=== PATIENT | male | born 1970 | race Caucasian/White ===

== ENCOUNTER 2022-07-12 14:31 | Inpatient (IN) | payer OTHER ==
[2022-07-12] MEDS ORDERED: MIDAZOLAM 1 MG/ML 5 ML VIAL IV STA (14:46)
[2022-07-12] MEDS ORDERED: DEXTROSE 5% IN WATER 100 ML with AMIODARONE 150 MG IV ONE ×4 (14:52)
[2022-07-12] MEDS ORDERED: AMIODARONE 360 MG in DEXTROSE 5% IN WATER 200 ML IV ONE ×2 (14:53)
--- NOTE | 2022-07-12 15:06 | ED ---
General Adult HPI - General Chief complaint: Arrhythmia/Palpitations Stated complaint: SALAZAR Source: patient, EMS, RN notes reviewed Mode of arrival: EMS Limitations: no limitations - History of Present Illness Initial comments: Patient is a pleasant 52-year-old male presenting to the emergency department by EMS with concern for dysrhythmia. Patient states onset of symptoms was close to 2 hours prior to arrival. Patient feels palpitations and shortness of breath. Patient is cold and sweating. Patient did have similar symptoms last week ago however resolved on its own. Patient denies any chest discomfort. Patient does feel short of breath. No leg pain or leg swelling. - Related Data Home Medications Medication Instructions Recorded Confirmed Amoxicillin 500 mg PO BID 07/12/22 07/12/22 Enalapril/Hydrochlorothiazide 1 tab PO DAILY 07/12/22 07/12/22 [Enalapril/Hydrochlorothiazide 10-25 mg Tablet] Allergies Allergy/AdvReac Type Severity Reaction Status Date / Time No Known Allergies Allergy Verified 07/12/22 15:23 Review of Systems ROS Statement: Those systems with pertinent positive or pertinent negative responses have been documented in the HPI. ROS Other: All systems not noted in ROS Statement are negative. Constitutional: Denies: fever Eyes: Denies: eye pain ENT: Denies: ear pain Respiratory: Reports: dyspnea Cardiovascular: Reports: palpitations Endocrine: Denies: fatigue Gastrointestinal: Denies: abdominal pain Genitourinary: Denies: dysuria Musculoskeletal: Denies: back pain Skin: Denies: rash General Exam Limitations: no limitations General appearance: alert Head exam: Present: atraumatic Eye exam: Present: normal appearance Neck exam: Present: normal inspection Respiratory exam: Present: normal lung sounds bilaterally Cardiovascular Exam: Present: tachycardia Expanded Peripheral pulses: 2+: Radial (R), Radial (L), Dorsalis Pedis (R), Dorsalis Pedis (L) GI/Abdominal exam: Present: soft. Absent: tenderness Extremities exam: Present: normal inspection Neurological exam: Present: alert Psychiatric exam: Present: normal affect, normal mood Skin exam: Present: cyanosis (Minimal cyanotic appearance to the feet.), diaphoretic Course Vital Signs 07/12/22 07/12/22 14:40 14:53 Pulse Rate 285 H 85 Respiratory 28 H 22 Rate Blood Pressure 105/79 107/59 O2 Sat by Pulse 94 L Oximetry - Reevaluation(s) Reevaluation #1: 07/12/22 15:02 Repeat EKG shows sinus rhythm rate 85. OH 194. QRS 110. QT 329. QTC 371. Superior axis. Normal QRS. No acute ST change. Patient unresponsive to amiodarone 1502. Patient did receive sick denies cardioversion at 120 J with conversion to sinus rhythm. Patient feels back to normal at this time. EKG Findings - EKG Results: EKG: interpreted by JENNIFERD (Wide-complex tachycardia with a rate of 260. Nonspecific ST-T. Superior axis.) EKG shows: ventricular tachycardia Procedures - Procedures Initial comment: Patient cardioverted, first attempted, cleaning with amiodarone 150 mg twice. Patient then had significant denies cardioversion at 120 J. Patient did receive 3 of Versed prior to this. Cardioversion did bring patient back to sinus rhythm. Medical Decision Making - Medical Decision Making Was pt. sent in by a medical professional or institution (, PA, CAREER EDUCATION TEACHER, urgent care, hospital, or usp...) When possible be specific @ -[No] Did you speak to anyone other than the patient for history (EMS, parent, family, police, friend...)? What history was obtained from this source @ -EMS helps provide history including rhythm Did you review nursing and triage notes (agree or disagree)? Why? @ -[I reviewed and agree with nursing and triage notes] Were old charts reviewed (outside hosp., previous admission, EMS record, old EKG, old radiological studies, urgent care reports/EKG's, usp records)? Report findings @ -[No old charts were reviewed] Differential Diagnosis (chest pain, altered mental status, abdominal pain women, abdominal pain men, vaginal bleeding, weakness, fever, dyspnea, syncope, headache, dizziness, GI bleed, back pain, seizure, CVA, palpatations, mental health)? EKG interpreted by me (3pts min.). @ -[As above] X-rays interpreted by me (1pt min.). @ -Chest x-ray shows cardiomegaly with some increased lung markings CT interpreted by me (1pt min.). @ -[None done] U/S interpreted by me (1pt. min.). @ -[None done] What testing was considered but not performed or refused? (CT, X-rays, U/S, labs)? Why? @ -[None] What meds were considered but not given or refused? Why? @ -[None] Did you discuss the management of the patient with other professionals ( professionals i.e. , PA, CAREER EDUCATION TEACHER, lab, RT, psych nurse, social media coordinator, manager telemarketing, teacher, senior credit officer, case reviewer)? Give summary @ -Case was discussed with Dr. arzate, who will admit covering hospital call Was smoking cessation discussed for >3mins.? @ -[No] Was critical care preformed (if so, how long)? @ -33 minutes of critical care performed Were there social determinants of health that impacted care today? How? (Homelessness, low income, unemployed, alcoholism, drug addiction, transportation, low edu. Level, literacy, decrease access to med. care, fdc, rehab)? @ -[No] Was there de-escalation of care discussed even if they declined (Discuss DNR or withdrawal of care, Hospice)? DNR status @ -[No] What co-morbidities impacted this encounter? (DM, HTN, Smoking, COPD, CAD, Cancer, CVA, ARF, Chemo, Hep., AIDS, mental health diagnosis, sleep apnea, morbid obesity)? @ -[None] Was patient admitted / discharged? Hospital course, mention meds given and route, prescriptions, significant lab abnormalities, going to OR and other pertinent info. @ -Patient had returned to sinus rhythm following conversion. Patient will be admitted for repeat testing and cardiac monitoring and consult Undiagnosed new problem with uncertain prognosis? @ -[No] Drug Therapy requiring intensive monitoring for toxicity (Heparin, Nitro, Insulin, Cardizem)? @ -[No] Were any procedures done? @ -[No] Diagnosis/symptom? @ -Ventricular tachycardia Acute, or Chronic, or Acute on Chronic? @ -Acute Uncomplicated (without systemic symptoms) or Complicated (systemic symptoms)? @ -[default] Side effects of treatment? @ -[No] Exacerbation, Progression, or Severe Exacerbation? @ -[No] Poses a threat to life or bodily function? How? (Chest pain, USA, DC, pneumonia, PE, COPD, DKA, ARF, appy, cholecystitis, CVA, Diverticulitis, Homicidal, Suicid al, threat to staff... and all critical care pts) @ -[No] - Lab Data Result diagrams: 07/12/22 15:03 07/12/22 15:03 Lab Results 07/12/22 07/12/22 07/12/22 Range/Units 15:03 15:03 15:03 WBC 10.9 H (3.8-10.6) k/uL RBC 5.05 (4.30-5.90) m/uL Hgb 15.2 (13.0-17.5) gm/dL Hct 48.1 (39.0-53.0) % MCV 95.2 (80.0-100.0) fL MCH 30.1 (25.0-35.0) pg MCHC 31.6 (31.0-37.0) g/dL RDW 13.4 (11.5-15.5) % Plt Count 294 (150-450) k/uL MPV 8.7 Neutrophils % 85 % Lymphocytes % 11 % Monocytes % 2 % Eosinophils % 1 % Basophils % 0 % Neutrophils # 9.3 H (1.3-7.7) k/uL Lymphocytes # 1.2 (1.0-4.8) k/uL Monocytes # 0.2 (0-1.0) k/uL Eosinophils # 0.1 (0-0.7) k/uL Basophils # 0.0 (0-0.2) k/uL PT 10.4 (9.0-12.0) sec INR 1.0 (<1.2) APTT 20.7 L (22.0-30.0) sec Sodium 138 (137-145) mmol/L Potassium 3.7 (3.5-5.1) mmol/L Chloride 101 (98-107) mmol/L Carbon Dioxide 20 L (22-30) mmol/L Anion Gap 17 mmol/L BUN 21 H (9-20) mg/dL Creatinine 1.38 H (0.66-1.25) mg/dL Est GFR (CKD-EPI)AfAm 67 (>60 ml/min/1.73 sqM) Est GFR (CKD-EPI)NonAf 58 (>60 ml/min/1.73 sqM) Glucose 250 H (74-99) mg/dL Calcium 8.5 (8.4-10.2) mg/dL Magnesium 1.9 (1.6-2.3) mg/dL Total Bilirubin 1.6 H (0.2-1.3) mg/dL AST 141 H (17-59) U/L ALT 133 H (4-49) U/L Alkaline Phosphatase 74 (38-126) U/L Troponin I (0.000-0.034) ng/mL Total Protein 6.4 (6.3-8.2) g/dL Albumin 3.6 (3.5-5.0) g/dL TSH 3.910 (0.465-4.680) mIU/L Free T4 1.43 (0.78-2.19) ng/dL Free T3 pg/mL 5.3 (2.8-5.3) pg/ml 07/12/22 Range/Units 15:03 WBC (3.8-10.6) k/uL RBC (4.30-5.90) m/uL Hgb (13.0-17.5) gm/dL Hct (39.0-53.0) % MCV (80.0-100.0) fL MCH (25.0-35.0) pg MCHC (31.0-37.0) g/dL RDW (11.5-15.5) % Plt Count (150-450) k/uL MPV Neutrophils % % Lymphocytes % % Monocytes % % Eosinophils % % Basophils % % Neutrophils # (1.3-7.7) k/uL Lymphocytes # (1.0-4.8) k/uL Monocytes # (0-1.0) k/uL Eosinophils # (0-0.7) k/uL Basophils # (0-0.2) k/uL PT (9.0-12.0) sec INR (<1.2) APTT (22.0-30.0) sec Sodium (137-145) mmol/L Potassium (3.5-5.1) mmol/L Chloride (98-107) mmol/L Carbon Dioxide (22-30) mmol/L Anion Gap mmol/L BUN (9-20) mg/dL Creatinine (0.66-1.25) mg/dL Est GFR (CKD-EPI)AfAm (>60 ml/min/1.73 sqM) Est GFR (CKD-EPI)NonAf (>60 ml/min/1.73 sqM) Glucose (74-99) mg/dL Calcium (8.4-10.2) mg/dL Magnesium (1.6-2.3) mg/dL Total Bilirubin (0.2-1.3) mg/dL AST (17-59) U/L ALT (4-49) U/L Alkaline Phosphatase (38-126) U/L Troponin I 0.080 H* (0.000-0.034) ng/mL Total Protein (6.3-8.2) g/dL Albumin (3.5-5.0) g/dL TSH (0.465-4.680) mIU/L Free T4 (0.78-2.19) ng/dL Free T3 pg/mL (2.8-5.3) pg/ml Disposition Clinical Impression: Ventricular tachycardia Disposition: ADMITTED IP TO THIS HOSP Condition: Serious Is patient prescribed a controlled substance at d/c from ED?: No Time of Disposition: 16:40
[2022-07-12 15:20] LABS: Basophils % (A) 0 %; Eosinophils # (A) 0.1 k/uL (0-0.7); Eosinophils % (A) 1 %; HCT 48.1 % (39.0-53.0); HGB 15.2 gm/dL (13.0-17.5); Lymphocytes # (A) 1.2 k/uL (1.0-4.8); Lymphocytes % (A) 11 %; MCH 30.1 pg (25.0-35.0); MCHC 31.6 g/dL (31.0-37.0); MCV 95.2 fL (80.0-100.0); Mean Platelet Volume 8.7; Monocytes # (A) 0.2 k/uL (0-1.0); Monocytes % (A) 2 %; Neutrophils # (A) 9.3 k/uL (1.3-7.7); Neutrophils % (A) 85 %; Platelet Count 294 k/uL (150-450); RBC 5.05 m/uL (4.30-5.90); RDW 13.4 % (11.5-15.5); WBC 10.9 k/uL (3.8-10.6)
[2022-07-12 15:39] LABS: Albumin 3.6 g/dL (3.5-5.0); Calcium 8.5 mg/dL (8.4-10.2); Magnesium 1.9 mg/dL (1.6-2.3); Potassium 3.7 mmol/L (3.5-5.1); Total Bilirubin 1.6 mg/dL (0.2-1.3); Total Protein 6.4 g/dL (6.3-8.2)
[2022-07-12 15:43] LABS: Prothrombin Time 10.4 sec (9.0-12.0)
--- NOTE | 2022-07-12 15:44 | XR ---
EXAMINATION TYPE: XR chest 1V portable DATE OF EXAM: 07/12/2022 3:18 PM COMPARISON: None TECHNIQUE: XR chest 1V portable Frontal view of the chest. CLINICAL INDICATION:Male, 52 years old with history of dysrhythmia; FINDINGS: Lungs/Pleura: There is no evidence of pleural effusion, focal consolidation, or pneumothorax. Pulmonary vascularity: Unremarkable. Heart/mediastinum: Cardiomediastinal silhouette is enlarged and stable. Musculoskeletal: No acute osseous pathology. IMPRESSION: Cardiomegaly correlate with serum BNP for heart failure.
[2022-07-12 15:53] LABS: T4, Free (Free Thyroxine) 1.43 ng/dL (0.78-2.19)
[2022-07-12 16:18] LABS: Partial Thromboplastin Time 20.7 sec (22.0-30.0)
[2022-07-12] MEDS ORDERED: ALPRAZolam 0.25 MG TAB PO PRN (16:21)
[2022-07-12] MEDS ORDERED: NALOXONE 0.4 MG/ML 1 ML VIAL IV PRN (16:21)
[2022-07-12] MEDS ORDERED: bisacodyL 5 MG TABLET.DR PO PRN (16:21)
[2022-07-12] MEDS ORDERED: ACETAMINOPHEN TAB 325 MG TAB PO PRN (16:21)
[2022-07-12] MEDS ORDERED: HYDROcodone/APAP 5-325MG 1 EACH TAB PO PRN (16:21)
[2022-07-12] MEDS ORDERED: MELATONIN 3 MG TABLET PO PRN (16:21)
[2022-07-12] MEDS ORDERED: DEXTROSE 50% SYRINGE 50 ML IVP PRN ×2 (16:23)
[2022-07-12] MEDS ORDERED: ASPIRIN 81 MG PO STA (16:39)
--- NOTE | 2022-07-12 16:51 | P.HPIM ---
History of Present Illness H&P Date: 07/12/22 Chief Complaint: palpitations Patient is a 52-year-old male with hypertension who presented to the ER via EMS with complaints of palpitations. In the ER he went in to ventricular tachycardia wide complex. He did receive amiodarone 150 mg 2 and then was s ynchronized cardioverted 120 J. Laboratory analysis was remarkable for white blood cell count 10.9, BUN 21, creatinine 1.38, glucose 250, total bilirubin 1.6, AST 141, ALT 133. Patient seen and examined at bedside. He reports that today he is in the kitchen doing the dishes when he suddenly became dizzy and had some blurry vision. He sat down and rested and it resolves. He went to the bathroom and it recurred. He then laid in bed and could feel his heart racing, he became diaphoretic, and folic acid was difficult to take a deep breath. He turned on a fan because he was so diaphoretic. He waited 20 and then 30 minutes and still had feelings of dizziness and heart palpitations and therefore called EMS. He reports he had a similar episode about 3 weeks ago that lasted 20 minutes and stopped spontaneously. He has not sought medical attention since that time. He follows with Dr. Ivey for primary care. He has a history of high blood pressure takes enalapril. He has a history of borderline diabetes but is not on any medications. He was recently started on amoxicillin for an abscessed tooth. He reports no recent cough, cold, fever, flu, nausea, vomiting, diarrhea, constipation, or dysuria. Currently he deneis chest pain, SOB. He does report numbness is his b/l hands a nd toes. He denies any history of known cardiac disease. Vital signs reviewed General: nontoxic, no distress, appears at stated age, obese Derm: warm, dry, mottling around umbilicus Eyes: EOMI, no lid lag, anicteric sclera, pupils equal round reactive to light ENT: Nose and ears atraumatic, no thrush, no pharyngeal erythema Cardiovascular: S1S2 reg, no murmur, positive posterior tibial pulse bilateral, no edema, capillary refill less than 2 seconds Lungs: clear to auscultation bilateral, no rhonchi, no rales, no wheeze, no accessory muscle use Abdominal: soft, nontender to palpation, no guarding, no appreciable organomegaly, normal bowel sounds Ext: no gross muscle atrophy, no contractures, bilateral forefoot and toes appear ischemic, positive dorsalis pedis and posterior tibial pulses Neuro: CN II-XII grossly intact, light touch intact all 4 extremities, finger to nose within normal limits, Psych: Alert, oriented, appropriate affect Assessment: Ventricular tachycardia status post synchronized cardioversion Elevated Troponin Leukocytosis Hyperglycemia Acidosis, suspect secondary to lactic acid Ischemia of toes Acute Kidney Injury Transaminitis Class III obesity with BMI 61 Imaging: Chest x-rays reviewed by myself shows bilateral increased pulmonary vasculature Data Review: Laboratory analysis was remarkable for white blood cell count 10.9, BUN 21, creatinine 1.38, glucose 250, total bilirubin 1.6, AST 141, ALT 133. Plan: -Admit patient to the telemetry monitoring unit -Continue with amiodarone infusion -Consult cardiology -Follow serial Troponins -Telemetry -Anticipate the elevated creatinine and liver enzymes are secondary to ischemia. Start IV fluids. Repeat CMP in a.m. -Avoid nephrotoxic agents and hold ACEI - NPO after midnight - Echo in AM - Aspirin 81 mg daily - Awaiting call back from cardiology The patient is admitted with an anticipated greater than 2 midnight stay for ralph luation of Ventricular tachycardia . Surrogate decision-maker: [place] CODE STATUS:Full DVT prophylaxis: Lovenox Discussed with: Patient, Family, Dr Evans Anticipated discharge date: Pending Clinical Course Anticipated discharge place: Pending Clinical Course This dictation was prepared using [employer] ([employer] voice recognition software. Though every attempt is made to correct errors during during dictation some may still exist. Past Medical History Past Medical History: Hypertension Additional Past Medical History / Comment(s): prediabetes, Obesity Past Surgical History: No Surgical Hx Reported Smoking Status: Never smoker Past Alcohol Use History: Occasional - Past Family History Father Family Medical History: Diabetes Mellitus Medications and Allergies Home Medications Medication Instructions Recorded Confirmed Type Amoxicillin 500 mg PO BID 07/12/22 07/12/22 History Enalapril/Hydrochlorothiazide 1 tab PO DAILY 07/12/22 07/12/22 History [Enalapril/Hydrochlorothiazide 10-25 mg Tablet] Allergies Allergy/AdvReac Type Severity Reaction Status Date / Time No Known Allergies Allergy Verified 07/12/22 15:23 Physical Exam Osteopathic Statement: *. No significant issues noted on an osteopathic structural exam other than those noted in the History and Physical/Consult. Vitals: Vital Signs Pulse Resp BP Pulse Ox 07/12/22 14:53 85 22 107/59 94 L 07/12/22 14:40 285 H 28 H 105/79 Intake and Output 07/12/22 07/12/22 07/12/22 06:59 14:59 22:59 Other: Weight 204.117 kg Results CBC & Chem 7: 07/12/22 15:03 07/12/22 15:03 Labs: Abnormal Lab Results - Last 24 Hours (Table) 07/12/22 07/12/22 07/12/22 Range/Units 15:03 15:03 15:03 WBC 10.9 H (3.8-10.6) k/uL Neutrophils # 9.3 H (1.3-7.7) k/uL APTT 20.7 L (22.0-30.0) sec Carbon Dioxide 20 L (22-30) mmol/L BUN 21 H (9-20) mg/dL Creatinine 1.38 H (0.66-1.25) mg/dL Glucose 250 H (74-99) mg/dL Total Bilirubin 1.6 H (0.2-1.3) mg/dL AST 141 H (17-59) U/L ALT 133 H (4-49) U/L Troponin I (0.000-0.034) ng/mL 07/12/22 Range/Units 15:03 WBC (3.8-10.6) k/uL Neutrophils # (1.3-7.7) k/uL APTT (22.0-30.0) sec Carbon Dioxide (22-30) mmol/L BUN (9-20) mg/dL Creatinine (0.66-1.25) mg/dL Glucose (74-99) mg/dL Total Bilirubin (0.2-1.3) mg/dL AST (17-59) U/L ALT (4-49) U/L Troponin I 0.080 H* (0.000-0.034) ng/mL
[2022-07-12] MEDS ORDERED: HEPARIN SODIUM 1,000 UN/ML (10ML VL) IV ONE (17:10)
[2022-07-12] MEDS ORDERED: HEPARIN SODIUM 1,000 UN/ML (10ML VL) IV PRN (17:10)
[2022-07-12] MEDS: SODIUM CHLORIDE 0.9% 1,000 ML IV SCH ×2 (17:15→21:21)
[2022-07-12] MEDS ORDERED: HEPARIN SOD,PORK IN 0.45% NACL 25,000 UNIT in 0.45% NACL 1 250ML.BAG IV SCH (17:15)
[2022-07-12] MEDS: INSULIN ASPART (NovoLOG) 100 UNIT/ML VIAL SQ SCH ×2 (18:42→20:31)
[2022-07-12 18:59] LABS: INR 1.1 (<1.2); Partial Thromboplastin Time 28.5 sec (22.0-30.0)
[2022-07-12 20:32] LABS: Glucose,Whole Blood 111 mg/dL (70-110)
[2022-07-12] MEDS: AMOXICILLIN 500 MG CAP PO SCH (21:20)
[2022-07-12] MEDS: AMIODARONE 450 MG in DEXTROSE 5% IN WATER 250 ML IV SCH ×2 (21:55)
[2022-07-12 22:34] LABS: Amphetamine Screen,Urine Not Detected (NotDetected); Barbiturate Screen,Urine Not Detected (NotDetected); Benzodiazepines Screen,Urine Not Detected (NotDetected); Cocaine Screen,Urine Not Detected (NotDetected); Methadone Screen, Urine Not Detected (NotDetected); Opiate Screen,Urine Not Detected (NotDetected); Oxycodone Screen, Urine Not Detected (NotDetected); Phencyclidine Screen,Urine Not Detected (NotDetected); Tricyclic Antidepressant,Urine Not Detected (NotDetected); Urn Cannabinoid Scrn Not Detected (NotDetected)
[2022-07-13 05:57] LABS: Glucose,Whole Blood 104 mg/dL (70-110)
[2022-07-13] MEDS: INSULIN ASPART (NovoLOG) 100 UNIT/ML VIAL SQ SCH ×4 (06:33→20:20)
[2022-07-13] MEDS ORDERED: ENOXAPARIN 40 MG/0.4 ML SYRINGE SQ SCH (09:00)
[2022-07-13] MEDS: AMOXICILLIN 500 MG CAP PO SCH ×2 (09:43→20:54)
[2022-07-13] MEDS: ASPIRIN 81 MG PO SCH (09:43)
[2022-07-13] MEDS ORDERED: ASPIRIN 325 MG TAB PO STA (09:57)
[2022-07-13] MEDS ORDERED: NITROGLYCERIN SL TABS 0.4 MG TAB SUBLINGUAL PRN (09:57)
[2022-07-13] MEDS ORDERED: ATORVASTATIN 80 MG TAB PO STA (09:57)
[2022-07-13] MEDS ORDERED: ALPRAZolam 0.25 MG TAB PO PRN (09:57)
[2022-07-13] MEDS ORDERED: ALPRAZolam 0.5 MG TAB PO PRN (09:57)
[2022-07-13] MEDS ORDERED: POTASSIUM CHLORIDE ER 20 MEQ TAB.ER PO STA (09:59)
[2022-07-13] MEDS ORDERED: MAGNESIUM SULFATE-D5W PMX 1 GM in DEXTROSE/WATER 1 100ML.BAG IVPB ONE (09:59)
[2022-07-13] MEDS: SODIUM CHLORIDE 0.9% 1,000 ML in EMPTY BAG 1 BAG IV SCH ×2 (10:32→17:29)
[2022-07-13 10:33] LABS: ALT 116 U/L (4-49); AST 66 U/L (17-59); African American GFR (CKD) >90 (>60 ml/min/1.73 sqM); Albumin 3.3 g/dL (3.5-5.0); Alkaline Phosphatase 71 U/L (38-126); Anion Gap 6 mmol/L; Blood Urea Nitrogen 21 mg/dL (9-20); Calcium 8.4 mg/dL (8.4-10.2); Carbon Dioxide 26 mmol/L (22-30); Chloride 103 mmol/L (98-107); Glucose 95 mg/dL (74-99); Magnesium 1.8 mg/dL (1.6-2.3); Non-African American GFR(CKD) >90 (>60 ml/min/1.73 sqM); Potassium 4.1 mmol/L (3.5-5.1); Sodium 135 mmol/L (137-145); Total Bilirubin 1.1 mg/dL (0.2-1.3); Total Protein 6.1 g/dL (6.3-8.2)
[2022-07-13] MEDS ORDERED: VERAPAMIL 2.5 MG/ML 2 ML AMP ONE (11:25)
[2022-07-13] MEDS ORDERED: HEPARIN SODIUM 1,000 UN/ML (10ML VL) ONE (11:25)
[2022-07-13] MEDS ORDERED: LIDOCAINE 1% INJ 10MG/ML (20 ML MDV) ONE (11:25)
[2022-07-13] MEDS ORDERED: SODIUM CHLORIDE 0.9% 500 ML 500 ML IV ONE (11:50)
[2022-07-13] MEDS: MIDAZOLAM 2 MG/2 ML VIAL IV ONE ×2 (11:51→12:31)
[2022-07-13] MEDS: LIDOCAINE 1% INJ 10MG/ML (20 ML MDV) SQ ONE ×2 (11:53→12:26)
[2022-07-13] MEDS ORDERED: DEXTROSE 5% IN WATER 100 ML with AMIODARONE 150 MG IV ONE (12:31)
[2022-07-13] MEDS ORDERED: HEPARIN SODIUM 1,000 UN/ML (10ML VL) IV ONE ×2 (12:38→13:23)
[2022-07-13] MEDS ORDERED: IOPAMIDOL-370 100ML BTL INJ ONE ×3 (13:00→13:45)
[2022-07-13] MEDS ORDERED: NITROGLYCERIN 1000MCG/10ML SYRINGE INTRACORON ONE (13:08)
[2022-07-13] MEDS ORDERED: TICAGRELOR 90 MG TAB ONE (13:24)
[2022-07-13] MEDS ORDERED: TICAGRELOR 90 MG TAB PO ONE (13:26)
[2022-07-13] MEDS: HEPARIN SODIUM 1,000 UN/ML (10ML VL) IV ONE ×2 (13:31→13:45)
[2022-07-13] MEDS ORDERED: MAG HYDROX/AL HYDROX/SIMETH 30 ML CUP PO PRN (13:43)
[2022-07-13] MEDS ORDERED: RX INFO: IV CONTRAST WAS GIVEN 1 EACH MISC MISCELLANE PRN (13:43)
[2022-07-13] MEDS ORDERED: ZOLPIDEM 5 MG TAB PO PRN (13:43)
[2022-07-13] MEDS ORDERED: ATROPINE SULFATE 0.1 MG/ML 10ML SYRINGE IV PRN (13:43)
[2022-07-13] MEDS ORDERED: AMIODARONE 450 MG in DEXTROSE 5% IN WATER 250 ML IV SCH ×2 (14:52)
--- NOTE | 2022-07-13 15:05 | P.DS ---
Providers Date of admission: 07/12/22 16:23 Expected date of discharge: 07/13/22 Attending physician: Sylvia Yancey DO Consults: 07/12/22 16:22 Consult Physician Routine Consulting Provider: Chase Stubbs Consult Reason/Comments: Ventricular tachycardia Do you want consulting provider notified?: Yes 07/13/22 11:19 Consult Physician Routine Consulting Provider: Justice Mckinney Consult Reason/Comments: Ventricular Tachycardia Do you want consulting provider notified?: Yes 07/13/22 13:43 Consult Physician Routine Consulting Provider: [facility] Consult Reason/Comments: Post Interventional Patient Do you want consulting provider notified?: Already Contacted Primary care physician: Physician Nonstaff Hospital Course: Patient is a 52-year-old male with hypertension who presented to the ER via EMS with complaints of palpitations. In the ER he went in to ventricular tachycardia wide complex. He did receive amiodarone 150 mg 2 and then was synchronized cardioverted 120 J. Laboratory analysis was remarkable for white blood cell count 10.9, BUN 21, creatinine 1.38, glucose 250, total bilirubin 1.6, AST 141, ALT 133. He was started on amiodarone infusion. Arrangements are made for admission to the stepdown unit. Cardiology was consulted. They recommended cardiac catheterization Patient seen and examined at bedside. No chest pain, no palpitations, no shortness of breath. Feeling much better. The pins and needles in his hands and toes have resolved. Vital signs reviewed General: nontoxic, no distress, appears at stated age Cardiovascular: S1S2 reg, no murmur, positive posterior tibial pulse bilateral, Lungs: Decreased breath sounds bilateral, no rhonchi, no rales , no accessory muscle use Abdominal: soft, nontender to palpation, no guarding, no appreciable organomegaly Ext: no gross muscle atrophy, no edema, no contractures Neuro: CN II-XI grossly intact, no focal neuro deficits Psych: Alert, oriented, appropriate affect Assessment: Ventricular tachycardia status post synchronized cardioversion Type II non-STEMI secondary to ventricular tachycardia and cardioversion Prediabetes with hemoglobin A1c 6.1 and hyperglycemia on arrival Leukocytosis Transaminitis, due to hypoperfusion, improving Class III obesity with BMI 61 Results: Lactic acidosis Ischemia of toes Acute Kidney Injury Imaging: None New Available Data Review: Vital signs reviewed and temperature 98.4, pulse 58, respirations 17, blood pressure 119/67, O2 sat 94% on room air Laboratory analysis reviewed sodium 135, BUN 21, creatinine 0.95 down from 1.38, glucose 95, total bilirubin 1.1 down from 1.6, AST 66, ALT 116 Plan: -Case discussed with Dr. Vazquez and patient will have cardiac catheterization performed today -Await echocardiogram -Continue to completely amiodarone infusion and then anticipate transition to oral amiodarone after discussion with cardiology -Aspirin, Lipitor 80 mg -Continue heparin drip until after -Structured outpatient weight loss DVT prophylaxis: Heparin Discussed with: Patient, nursing Anticipated discharge date: Pending clinical course Anticipated discharge place: Pending clinical course This dictation was prepared using [employer] voice recognition software. Though every attempt is made to correct errors during during dictation some may still exist. Patient Condition at Discharge: Stable Plan - Discharge Summary Discharge Rx Participant: No New Discharge Prescriptions: No Action Amoxicillin 500 mg PO BID Enalapril/Hydrochlorothiazide [Enalapril/Hydrochlorothiazide 10-25 mg Tablet] 1 tab PO DAILY Discharge Medication List Amoxicillin 500 mg PO BID 07/12/22 [History] Enalapril/Hydrochlorothiazide [Enalapril/Hydrochlorothiazide 10-25 mg Tablet] 1 tab PO DAILY 07/12/22 [History] Follow up Appointment(s)/Referral(s): None,Stated [REFERRING] - 1-2 days
[2022-07-13 17:06] LABS: Glucose,Whole Blood 64 mg/dL (70-110)
[2022-07-13] MEDS: AMIODARONE 450 MG in DEXTROSE 5% IN WATER 250 ML IV SCH ×2 (17:28)
[2022-07-13 17:39] LABS: Glucose,Whole Blood 62 mg/dL (70-110)
[2022-07-13 17:54] LABS: Glucose,Whole Blood 85 mg/dL (70-110)
--- NOTE | 2022-07-13 18:19 | CA ---
Transthoracic Echo Report Name: Dayron Hart Age: 52 Gender: M : 1970 Exam Date: 07/13/2022 11:33 Exam Location: [facility] Ht (in): Wt (lb): Ordering Physician: Ester Degroot Attending/Referring Phys: Research Chemist Ara Joseph RDCS Procedure CPT: Indications: V-tach, LV function Cardiac Hx: Technical Quality: Very technically difficult study Contrast 1: Total Dose (mL): Contrast 2: Total Dose (mL): MEASUREMENTS (Male / Female) Normal Values FINDINGS Left Ventricle Limited study to estimate LV systolic function prior to cardiac cath. Preserved systolic function EF 50-55%. Right Ventricle Right Atrium Left Atrium Mitral Valve Aortic Valve Tricuspid Valve Pulmonic Valve Pericardium No pericardial effusion. Aorta CONCLUSIONS 1. Limited study 2. Overall systolic function appears to be borderline, could not comment on segmental wall motion Previewed by: Dr. Geoffrey Schilling MD (Electronically Signed) Final Date: 13 Jul 2022 18:18
[2022-07-13 18:28] LABS: HCT 46.4 % (39.0-53.0); HGB 14.9 gm/dL (13.0-17.5); MCH 30.4 pg (25.0-35.0); MCHC 32.2 g/dL (31.0-37.0); MCV 94.4 fL (80.0-100.0); Mean Platelet Volume 8.6; Platelet Count 239 k/uL (150-450); RBC 4.92 m/uL (4.30-5.90); RDW 13.6 % (11.5-15.5); WBC 10.3 k/uL (3.8-10.6)
[2022-07-13] MEDS: SODIUM CHLORIDE 0.9% 1,000 ML IV SCH (19:08)
[2022-07-13 20:06] LABS: Glucose,Whole Blood 75 mg/dL (70-110)
[2022-07-13] MEDS: TICAGRELOR 90 MG TAB PO SCH (20:54)
[2022-07-13] MEDS: ATORVASTATIN 80 MG TAB PO SCH (20:54)
--- NOTE | 2022-07-13 23:35 | CONS ---
CONSULTATION HISTORY OF PRESENT ILLNESS: This is a 52-year-old gentleman with a history of hypertension, morbid obesity, borderline diabetes, who presented to the emergency room through EMS after having an episode of lightheadedness, dizziness and near-syncope. He was apparently in the kitchen doing dishes when he suddenly became dizzy, had a blurred vision, sat down, rested. It persisted and recurred again and then he called EMS. Three weeks ago, he had a similar but less intense episode, saw his PCP who advised him to call EMS right away. He at the time of my evaluation is resting comfortably. I reviewed the rhythm strips. His potassium and magnesium levels are normal. He has what seems to be a monomorphic ventricular tachycardia, almost like a ventricular flutter at a very rapid rate on the 12-lead and also the rhythm strips. His clinical picture is that of a ventricular flutter/tachycardia. He had an electrical cardioversion performed in a synchronized fashion after giving him 300 mg of amiodarone intravenously and he converted to sinus rhythm. He is resting comfortably at the time of my evaluation. His apparently is in [place]. No family was available. The patient, however, was advised to have a prompt cardiac catheterization and echocardiogram. Possibility of a myocardial ischemia or scar or cardiomyopathy was possible and I explained this to the patient. PAST MEDICAL HISTORY: 1. Morbid obesity. 2. Hypertension. 3. Borderline diabetes. 4. No evidence of any prior CAD. PHYSICAL EXAMINATION: VITAL SIGNS: Blood pressure is 140/80, pulse rate is about 80 per minute, regular. HEENT: Unremarkable. Fundus was not examined by me. NECK: Supple. No JVD. I do not hear a carotid bruit. HEART: Reveals S1, S2 heard normally but distantly. No significant murmurs. LUNGS: Reveal bilateral decent air entry. ABDOMEN: Distended. LOWER EXTREMITIES: Reveal palpable pulses. CENTRAL NERVOUS SYSTEM: No focal deficits. DIAGNOSTIC DATA: EKG revealed what seems to be a monomorphic ventricular tachycardia, almost like a ventricular flutter at 250 beats per minute. Repeat EKG revealed sinus mechanism with what seems to be a leftward axis and mild IVCD with mild nonspecific ST abnormality. LABORATORY STUDIES: Troponin levels suggest mild elevation of about 0.7, initial was 0.8, now it is 0.77. IMPRESSION: 1. Ventricular tachycardia with syncope requiring resuscitation with a synchronized shock. 2. Non-ST elevation myocardial infarction. 3. Hypertension. 4. Morbid obesity. 5. Borderline diabetes. RECOMMENDATIONS: I am advising prompt cardiac catheterization and based on finding intervention, I explained to the patient that he might have either ischemia, scar or a cardiomyopathy and he will also require EP evaluation and possible ICD based on the cardiac cath findings. The rationale, risks, benefits, options were explained and the patient's is in [place] and he will speak to her as well. He wishes to proceed with cardiac cath, understanding all details. MMODL / IJN: [id number] /
--- NOTE | 2022-07-13 23:53 | CC ---
CARDIAC CATHETERIZATION REPORT DATE OF SERVICE: 07/13/2022. PROCEDURES PERFORMED: 1. Left heart catheterization and coronary angiography. 2. Percutaneous transluminal coronary angioplasty and stenting of proximal left anterior descending with a drug-eluting stent. 3. Intravascular ultrasound of left anterior descending. PERFORMED BY: Dr. Zehra Vazquez. ANESTHESIA: Moderate conscious sedation time was 94 minutes. The patient was administered Versed. Oxygen saturation, hemodynamics, and EKG were monitored closely. CLINICAL INFORMATION: Mr. Dayron Hart is a 52-year-old morbidly obese gentleman, who presented to the hospital with ventricular tachycardia that was required to be shocked, has non-ST- elevation SD, but no clear-cut chest pain. He was advised cardiac catheterization after due discussion of risks, benefits, and options. PROCEDURE NOTE: Under local anesthesia and strict aseptic precautions, I gained access with a micropuncture needle and ultrasound into the right radial artery, but I could not thread the wire on multiple occasions; therefore, I abandoned the procedure and went to the right femoral approach. Ultrasound guidance was used with a micropuncture technique, and I obtained access into the right femoral artery. 6-Greek introducer was placed. Cardiac catheterization was performed with standard Megan catheters. The same right catheter was used to check LV pressure, but LV-gram was not performed. I proceeded to perform intervention of the proximal LAD, which appeared to have plaque rupture and stenosis of more than 80%. This was performed in the same setting. Following the procedure, the sheath was sutured, and he was sent to the room in a stable condition with the sheath to be pulled in 2 hours. CARDIAC CATHETERIZATION FINDINGS: The left ventricular end-diastolic pressure was 22 mmHg without any gradient across aortic valve. CORONARY ANGIOGRAPHY FINDINGS: 1. RIGHT CORONARY ARTERY: Very large vessel, almost 6 mm in diameter to begin with. Then, the caliber decreases distally, bifurcates into PDA and PLV, supplies a lot of myocardium. No significant disease. Flow appears to be somewhat sluggish, but overall, no obstruction noted in the superdominant, extremely large RCA, proximally dilated, almost looks like an inflammatory vascular disease type picture. 2. LEFT MAIN CORONARY ARTERY: Short, patent vessel, free of any disease, trifurcates into LAD, ramus, and circumflex. 3. LEFT ANTERIOR DESCENDING CORONARY ARTERY: This vessel very proximally has an eccentric 80% lesion, almost like a plaque rupture, and the large vessel runs all the way to the apex supplying a sizable amount of myocardium. This appears to be the culprit lesion, 80% proximal LAD, like a plaque rupture. There is a good-sized diagonal branch that supplies a lot of myocardium that runs along the LAD, and this vessel sometimes camouflages the view of LAD diseased segment proximally. 4. RAMUS INTERMEDIUS: Fair-caliber vessel, fair distribution, has minor irregularities, supplies a fair amount of myocardium. No significant disease. 5. LEFT POSTERIOR CIRCUMFLEX CORONARY ARTERY: Small vessel, small caliber and distribution, no significant disease. FINAL IMPRESSION: This patient has a right-dominant system without significant disease in the dominant right coronary artery. The proximal right coronary artery dilatation is suggestive of inflammatory vascular disease. The left main circumflex and ramus are free of significant disease. Left anterior descending has a plaque rupture, 80% stenosis. Filling pressures are elevated. No gradient. RECOMMENDATIONS: I recommended PCI of LAD that was performed in the same setting. PCI PROCEDURE DETAILS: A standard left Megan guide catheter was used to cannulate the left coronary artery. A Runthrough wire was used to cross the lesion. A 3.5 caliber, 15 mm NC Trek balloon was used to pre-dilate the lesion. I deployed a 5.0 caliber, 15 mm long Xience stent and then performed intravascular ultrasound. The stent was well expanded but not fully apposed, and the reference diameter was almost 6.1 mm. I, therefore, went with a 6.0 caliber NC Trek balloon of 15 mm length and post-dilated. I did another IVUS, and the stent was well expanded and well apposed. Excellent angiographic result was noted, and excellent intravascular appearance was noted. The sheath was sutured, and the patient was sent to the room in a stable condition. He received 20,000 units of heparin. ACT was 190. He also received 180 mg of Brilinta. The patient will be on aspirin and Brilinta combination for 12 months without interruption. Details were discussed with the patient, and I spoke to the by phone. The patient will be watched very closely. I will continue amiodarone and also add a small dose of nitrate since his LV end-diastolic pressure is elevated. MMODL / IJN: [id number] /
[2022-07-14 00:46] LABS: Glucose,Whole Blood 115 mg/dL (70-110)
[2022-07-14] MEDS: SODIUM CHLORIDE 0.9% 1,000 ML in EMPTY BAG 1 BAG IV SCH ×6 (02:21→20:47)
[2022-07-14] MEDS: AMIODARONE 450 MG in DEXTROSE 5% IN WATER 250 ML IV SCH ×2 (06:04)
[2022-07-14] MEDS: SODIUM CHLORIDE 0.9% 1,000 ML IV SCH (06:05)
[2022-07-14 06:24] LABS: Glucose,Whole Blood 115 mg/dL (70-110)
[2022-07-14] MEDS: INSULIN ASPART (NovoLOG) 100 UNIT/ML VIAL SQ SCH ×4 (06:24→20:47)
[2022-07-14] MEDS ORDERED: HEPARIN SODIUM,PORCINE 10,000 UNIT in SODIUM CHLORIDE 0.9% 1,000 ML IRRIGATION PRN (07:00)
[2022-07-14] MEDS ORDERED: HEPARIN SODIUM,PORCINE 2,500 UNIT in SODIUM CHLORIDE 0.9% 250 ML IRRIGATION PRN (07:00)
[2022-07-14 08:33] LABS: Basophils % (A) 0 %; Eosinophils % (A) 0 %; HCT 40.2 % (39.0-53.0); Lymphocytes # (A) 1.1 k/uL (1.0-4.8); Lymphocytes % (A) 9 %; MCH 29.8 pg (25.0-35.0); MCHC 32.3 g/dL (31.0-37.0); MCV 92.3 fL (80.0-100.0); Mean Platelet Volume 8.6; Monocytes # (A) 0.5 k/uL (0-1.0); Monocytes % (A) 4 %; Neutrophils # (A) 10.7 k/uL (1.3-7.7); Neutrophils % (A) 86 %; Platelet Count 235 k/uL (150-450); RBC 4.35 m/uL (4.30-5.90); RDW 13.7 % (11.5-15.5); WBC 12.4 k/uL (3.8-10.6)
[2022-07-14] MEDS: AMOXICILLIN 500 MG CAP PO SCH ×2 (08:50→20:44)
[2022-07-14] MEDS: LOSARTAN 25 MG TAB PO SCH (08:50)
[2022-07-14] MEDS: ASPIRIN 81 MG PO SCH (08:50)
[2022-07-14] MEDS: TICAGRELOR 90 MG TAB PO SCH ×2 (08:50→20:45)
[2022-07-14 09:05] LABS: African American GFR (CKD) >90 (>60 ml/min/1.73 sqM); Anion Gap 6 mmol/L; Blood Urea Nitrogen 17 mg/dL (9-20); Calcium 8.5 mg/dL (8.4-10.2); Carbon Dioxide 27 mmol/L (22-30); Chloride 101 mmol/L (98-107); Glucose 114 mg/dL (74-99); Magnesium 1.8 mg/dL (1.6-2.3); Non-African American GFR(CKD) >90 (>60 ml/min/1.73 sqM); Potassium 3.8 mmol/L (3.5-5.1); Sodium 134 mmol/L (137-145)
--- NOTE | 2022-07-14 09:18 | P.PN ---
Subjective Progress Note Date: 07/14/22 HISTORY OF PRESENT ILLNESS: This is a 52-year-old male who was admitted to the hospital secondary to ventricular tachycardia. He underwent cardiac catheterization yesterday with Dr. Vazquez with stenting to the LAD. Patient examined this morning at the bedside. Patient denies any chest pain or pressure. He denies shortness of breath. The patient had issues overnight with oozing at his femoral site and his from stop was removed this morning. Echocardiogram completed revealing ejection fraction 50%. Vital signs this morning are stable. PHYSICAL EXAM: VITAL SIGNS: Reviewed. GENERAL: Well-developed in no acute distress. NECK: Supple. No JVD or thyromegaly LUNGS: Respirations even and unlabored. Lungs essentially clear to auscultation bilaterally. HEART: Regular rate and rhythm. S1 and S2 heard. EXTREMITIES: Normal range of motion. No clubbing or cyanosis. Peripheral pulses intact. No lower extremity edema ASSESSMENT: Ventricular tachycardia requiring synchronized cardioversion Non-STEMI, status post stenting to LAD Hypertension Borderline diabetes Morbid obesity, BMI 61.0 PLAN: Continue Dilantin platelet therapy with Brilinta and aspirin Continue high-intensity statin Continue Cozaar Add metoprolol tartrate 25 mg twice a day Discontinue IV amiodarone. No oral amiodarone at this time Continue telemetry monitoring Continue to monitor patient for another 24 hours Further recommendations pending patient's course Nurse practitioner note has been reviewed by physician. Signing provider agrees with the documented findings, assessment, and plan of care. Objective - Vital Signs Vital signs: Vital Signs Temp 98.4 F 07/13/22 18:15 Pulse 73 07/14/22 03:09 Resp 18 07/14/22 03:09 BP 125/89 07/14/22 03:09 Pulse Ox 97 07/14/22 08:38 FiO2 Intake & Output 07/13/22 07/14/22 07/14/22 18:59 06:59 18:59 Intake Total 995 250 Output Total 1400 Balance 995 -1150 Intake: IV 603 Intake, IV Titration 272 250 Amount Amiodarone 450 mg In 47 250 Dextrose 5% in Water 250 ml @ 0.5 MG/MIN 16.667 mls/hr IV .Q15H RILEY Rx#: [id number] Sodium Chloride 0.9% 1, 225 000 ml @ 75 mls/hr IV . [id number] RILEY Rx#:[id number] Oral 120 Output: Urine 1400 Other: Voiding Method Toilet Toilet Urinal Urinal - Labs CBC & Chem 7: 07/14/22 07:37 07/14/22 07:37 Labs: Abnormal Lab Results - Last 24 Hours (Table) 07/12/22 07/13/22 07/13/22 Range/Units 18:15 09:25 17:04 WBC (3.8-10.6) k/uL Neutrophils # (1.3-7.7) k/uL Sodium 135 L (137-145) mmol/L BUN 21 H (9-20) mg/dL Glucose (74-99) mg/dL POC Glucose (mg/dL) 64 L (70-110) mg/dL Hemoglobin A1c 6.1 H (0.0-6.0) % AST 66 H (17-59) U/L ALT 116 H (4-49) U/L Total Protein 6.1 L (6.3-8.2) g/dL Albumin 3.3 L (3.5-5.0) g/dL 07/13/22 07/14/22 07/14/22 Range/Units 17:28 00:44 06:23 WBC (3.8-10.6) k/uL Neutrophils # (1.3-7.7) k/uL Sodium (137-145) mmol/L BUN (9-20) mg/dL Glucose (74-99) mg/dL POC Glucose (mg/dL) 62 L 115 H 115 H (70-110) mg/dL Hemoglobin A1c (0.0-6.0) % AST (17-59) U/L ALT (4-49) U/L Total Protein (6.3-8.2) g/dL Albumin (3.5-5.0) g/dL 07/14/22 07/14/22 Range/Units 07:37 07:37 WBC 12.4 H (3.8-10.6) k/uL Neutrophils # 10.7 H (1.3-7.7) k/uL Sodium 134 L (137-145) mmol/L BUN (9-20) mg/dL Glucose 114 H (74-99) mg/dL POC Glucose (mg/dL) (70-110) mg/dL Hemoglobin A1c (0.0-6.0) % AST (17-59) U/L ALT (4-49) U/L Total Protein (6.3-8.2) g/dL Albumin (3.5-5.0) g/dL
[2022-07-14] MEDS ORDERED: CYCLOBENZAPRINE 5 MG TAB PO PRN (11:19)
[2022-07-14 11:39] LABS: Glucose,Whole Blood 102 mg/dL (70-110)
--- NOTE | 2022-07-14 11:42 | P.PN ---
Subjective Progress Note Date: 07/14/22 Patient is a 52-year-old male with hypertension who presented to the ER via EMS with complaints of palpitations. In the ER he went in to ventricular tachycardia wide complex. He did receive amiodarone 150 mg 2 and then was synchronized cardioverted 120 J. Laboratory analysis was remarkable for white blood cell count 10.9, BUN 21, creatinine 1.38, glucose 250, total bilirubin 1.6, AST 141, ALT 133. He was started on amiodarone infusion. Arrangements are made for admission to the stepdown unit. Cardiology was consulted. They recommended cardiac catheterization which was preformed on 07/13/22 and resulted in a stent to the LAD. He did have some post-procedure bleeding and required a fem stop. Patient seen and examined at bedside. No chest pain, SOB, nausea, or vomiting. He complains of some right groin/leg pain when lifting his leg. Vital signs reviewed General: nontoxic, no distress, appears at stated age, Obese Cardiovascular: S1S2 reg, no murmur, positive posterior tibial pulse bilateral, Lungs: Decreased bs bilateral, no rhonchi, no rales , no accessory muscle use Abdominal: soft, nontender to palpation, no guarding, no appreciable organomegaly Ext: no gross muscle atrophy, no edema, no contractures Neuro: CN II-XI grossly intact, no focal neuro deficits Psych: Alert, oriented, appropriate affect Assessment: Ventricular tachycardia status post synchronized cardioversion Left left pain Acute NSTEMI, Type I, CAD with PCI to the LAD Prediabetes with hemoglobin A1c 6.1 and hyperglycemia on arrival Leukocytosis Transaminitis, due to hypoperfusion, improving Class III obesity with BMI 61 Results: Lactic acidosis Ischemia of toes Acute Kidney Injury Imaging: Echo- EF 50-55% Data Review: Vitals temperature 98.4, pulse 65, respirations 18, blood pressure 103/81, O2 sat 94% on room air Laboratory analysis reviewed and remarkable for white blood cell count of 12.4, sodium 134 Plan: - Aspirin 81 mg daily, Brillenta 90 mg twice daily - Lopressor 25 mg twice daily, Cozaar 25 mg daily, Lipitor 80 mg at night - Finishing amoxicillin for an outpatient procedure - Cardiology note reviewed continue with current medications - NOrco 5/325 and flexeril 5 mg for leg pain DVT prophylaxis: SCDs Discussed with: Patient, nursing Anticipated discharge date: pending clinical course Anticipated discharge place: pending clinical course This dictation was prepared using [employer] voice recognition software. Though every attempt is made to correct errors during during dictation some may still exist. Objective - Vital Signs Vital signs: Vital Signs Temp 98.4 F 07/14/22 08:10 Pulse 65 07/14/22 08:15 Resp 18 07/14/22 08:15 BP 143/81 07/14/22 08:10 Pulse Ox 97 07/14/22 08:38 FiO2 Intake & Output 07/13/22 07/14/22 07/14/22 18:59 06:59 18:59 Intake Total 995 250 Output Total 1400 600 Balance 995 -1150 -600 Intake: IV 603 Intake, IV Titration 272 250 Amount Amiodarone 450 mg In 47 250 Dextrose 5% in Water 250 ml @ 0.5 MG/MIN 16.667 mls/hr IV .Q15H RILEY Rx#: [id number] Sodium Chloride 0.9% 1, 225 000 ml @ 75 mls/hr IV . [id number] RILEY Rx#:[id number] Oral 120 Output: Urine 1400 600 Other: Voiding Method Toilet Toilet Toilet Urinal Urinal Urinal - Labs CBC & Chem 7: 07/14/22 07:37 07/14/22 07:37 Labs: Abnormal Lab Results - Last 24 Hours (Table) 07/13/22 07/13/22 07/14/22 Range/Units 17:04 17:28 00:44 WBC (3.8-10.6) k/uL Neutrophils # (1.3-7.7) k/uL Sodium (137-145) mmol/L Glucose (74-99) mg/dL POC Glucose (mg/dL) 64 L 62 L 115 H (70-110) mg/dL 07/14/22 07/14/22 07/14/22 Range/Units 06:23 07:37 07:37 WBC 12.4 H (3.8-10.6) k/uL Neutrophils # 10.7 H (1.3-7.7) k/uL Sodium 134 L (137-145) mmol/L Glucose 114 H (74-99) mg/dL POC Glucose (mg/dL) 115 H (70-110) mg/dL
[2022-07-14] MEDS: METOPROLOL TARTRATE 25 MG TAB PO SCH ×2 (12:53→20:44)
[2022-07-14 12:54] VITALS: BMI 61.0
[2022-07-14 16:41] LABS: Glucose,Whole Blood 77 mg/dL (70-110)
[2022-07-14 20:02] LABS: Glucose,Whole Blood 155 mg/dL (70-110)
[2022-07-14] MEDS: ATORVASTATIN 80 MG TAB PO SCH (20:44)
[2022-07-14 21:33] VITALS: RESP 18
[2022-07-15 06:09] LABS: Glucose,Whole Blood 110 mg/dL (70-110)
[2022-07-15] MEDS: INSULIN ASPART (NovoLOG) 100 UNIT/ML VIAL SQ SCH ×3 (06:16→17:07)
[2022-07-15] MEDS: SODIUM CHLORIDE 0.9% 1,000 ML in EMPTY BAG 1 BAG IV SCH (06:16)
[2022-07-15 08:20] VITALS: PULSE 61; TEMP 98.9
[2022-07-15] MEDS: AMOXICILLIN 500 MG CAP PO SCH (08:21)
[2022-07-15] MEDS: TICAGRELOR 90 MG TAB PO SCH (08:21)
[2022-07-15] MEDS: LOSARTAN 25 MG TAB PO SCH (08:21)
[2022-07-15] MEDS: ASPIRIN 81 MG PO SCH (08:21)
[2022-07-15] MEDS: METOPROLOL TARTRATE 25 MG TAB PO SCH (08:21)
[2022-07-15] MEDS ORDERED: LOSARTAN 25 MG TAB PO STA (08:24)
[2022-07-15] MEDS ORDERED: LOSARTAN 50 MG TAB PO SCH (09:00)
--- NOTE | 2022-07-15 11:16 | P.PN ---
Subjective Progress Note Date: 07/15/22 HISTORY OF PRESENT ILLNESS: This is a 52-year-old male who was admitted to the hospital secondary to ventricular tachycardia. He underwent cardiac catheterization yesterday with Dr. Vazquez with stenting to the LAD. Patient examined this morning at the bedside. Patient denies any chest pain or pressure. He denies shortness of breath. The patient had issues overnight with oozing at his femoral site and his from stop was removed this morning. Echocardiogram completed revealing ejection fraction 50%. Vital signs this morning are stable. 07/15/2022 Patient examined this morning at the bedside. Patient denies chest pain or pressure. He denies shortness of breath. Vital signs are stable. He is hoping to be discharged home today. PHYSICAL EXAM: VITAL SIGNS: Reviewed. GENERAL: Well-developed in no acute distress. NECK: Supple. No JVD or thyromegaly LUNGS: Respirations even and unlabored. Lungs essentially clear to auscultation bilaterally. HEART: Regular rate and rhythm. S1 and S2 heard. EXTREMITIES: Normal range of motion. No clubbing or cyanosis. Peripheral pulses intact. No lower extremity edema ASSESSMENT: Ventricular tachycardia requiring synchronized cardioversion Non-STEMI, status post stenting to LAD Hypertension Borderline diabetes Morbid obesity, BMI 61.0 PLAN: Continue dual platelet therapy with Brilinta and aspirin Continue high-intensity statin Continue Cozaar. Increase dose to 50 mg daily Continue additional cardiac medications Patient may be discharged home today from a cardiac standpoint He is to follow up on an outpatient basis with Dr. Vazquez Nurse practitioner note has been reviewed by physician. Signing provider agrees with the documented findings, assessment, and plan of care. Objective - Vital Signs Vital signs: Vital Signs Temp 98.9 F 07/15/22 08:00 Pulse 61 07/15/22 08:00 Resp 18 07/15/22 08:00 BP 148/75 07/15/22 08:00 Pulse Ox 97 07/15/22 08:00 FiO2 Intake & Output 07/14/22 07/15/22 07/15/22 18:59 06:59 18:59 Intake Total 360 10 0 Output Total 600 550 Balance -240 -540 0 Weight 204.117 kg Intake: IV 10 0.9 10 Oral 360 0 Output: Urine 600 550 Other: Voiding Method Toilet Toilet Urinal Urinal # Voids 6 1 # Bowel Movements 1 - Labs CBC & Chem 7: 07/14/22 07:37 07/14/22 07:37 Labs: Abnormal Lab Results - Last 24 Hours (Table) 07/14/22 Range/Units 20:01 POC Glucose (mg/dL) 155 H (70-110) mg/dL
--- NOTE | 2022-07-15 11:25 | P.DS ---
Providers Date of admission: 07/12/22 16:23 Expected date of discharge: 07/15/22 Attending physician: Sylvia Yancey DO Consults: 07/12/22 16:22 Consult Physician Routine Consulting Provider: Chase Stubbs Consult Reason/Comments: Ventricular tachycardia Do you want consulting provider notified?: Yes 07/13/22 11:19 Consult Physician Routine Consulting Provider: Justice Mckinney Consult Reason/Comments: Ventricular Tachycardia Do you want consulting provider notified?: Yes 07/13/22 13:43 Consult Physician Routine Consulting Provider: [facility] Consult Reason/Comments: Post Interventional Patient Do you want consulting provider notified?: Already Contacted Primary care physician: Physician Nonstaff Hospital Course: Discharge Diagnosis: Ventricular tachycardia status post synchronized cardioversion Acute NSTEMI, Type I, CAD with PCI to the LAD Prediabetes with hemoglobin A1c 6.1 and hyperglycemia on arrival Leukocytosis, resolved Transaminitis, due to hypoperfusion, improving Class III obesity with BMI 61 Lactic acidosis Ischemia of toes Acute Kidney Injury Hospital Course: Patient is a 52-year-old male with hypertension who presented to the ER via EMS with complaints of palpitations. In the ER he went in to ventricular tachycardia wide complex. He did receive amiodarone 150 mg 2 and then was synchronized cardioverted 120 J. Laboratory analysis was remarkable for white blood cell count 10.9, BUN 21, creatinine 1.38, glucose 250, total bilirubin 1.6, AST 141, ALT 133. He was started on amiodarone infusion. Arrangements are made for admission to the stepdown unit. Cardiology was consulted. They recommended cardiac catheterization which was preformed on 07/13/22 and resulted in a stent to the LAD. He did have some post-procedure bleeding and required a fem stop. Echocardiogram showed a preserved ejection fraction 50-55%. He did well. He did not have any additional bleeding. He was determined stable for discharge home Follow-up: Dr. Vazquez in one week, Dr. Ivey in 3-5 days, multiple new prescriptions as listed below. Recent benefits discussion could be had with Dr. Ivey regarding possibility of SGLT2 inhibitor to help with weight loss. Patient seen and examined at bedside. Doing well. No chest pain or shortness of breath. Still having some left leg pain when moving it. Multiple questions answered regarding Mediterranean diet, heart healthy diet, weight loss, need for monitoring. Vital signs reviewed and stable. General: nontoxic, no distress, appears at stated age Derm: warm, dry Head: atraumatic, normocephalic, symmetric Eyes: EOMI, no lid lag, anicteric sclera Mouth: no lip lesion, mucus membranes moist Cardiovascular: S1S2 reg, no murmur, positive posterior tibial pulse bilateral, Lungs: Decreased breath sounds bilateral, no rhonchi, no rales , no accessory muscle use Abdominal: soft, nontender to palpation, no guarding, no appreciable organomegaly Ext: no gross muscle atrophy, no edema, no contractures Neuro: CN II-XI grossly intact, no focal neuro deficits Psych: Alert, oriented, appropriate affect A total of 35 minutes of time were spent preparing this complex discharge summary. Patient was discharged on 07/15/22. This dictation was prepared using [employer] voice recognition software. Though every attempt is made to correct errors during during dictation some may still exist. Patient Condition at Discharge: Stable Plan - Discharge Summary Discharge Rx Participant: No New Discharge Prescriptions: New Losartan [Cozaar] 50 mg PO DAILY #30 tab Atorvastatin [Lipitor] 80 mg PO HS #30 tab Aspirin 81 mg PO DAILY tab Ticagrelor [Brilinta] 90 mg PO BID #60 tab Metoprolol Tartrate [Lopressor] 25 mg PO BID #60 tab Nitroglycerin 0.4 mg SL Q5M #20 tab Aspirin [[place] Aspirin EC] 81 mg PO DAILY #30 tab Continue Amoxicillin 500 mg PO BID Discontinued Enalapril/Hydrochlorothiazide [Enalapril/Hydrochlorothiazide 10-25 mg Tablet] 1 tab PO DAILY Discharge Medication List Amoxicillin 500 mg PO BID 07/12/22 [History] Aspirin 81 mg PO DAILY tab 07/15/22 [Rx] Aspirin [[place] Aspirin EC] 81 mg PO DAILY #30 tab 07/15/22 [Rx] Atorvastatin [Lipitor] 80 mg PO HS #30 tab 07/15/22 [Rx] Losartan [Cozaar] 50 mg PO DAILY #30 tab 07/15/22 [Rx] Metoprolol Tartrate [Lopressor] 25 mg PO BID #60 tab 07/15/22 [Rx] Nitroglycerin 0.4 mg SL Q5M #20 tab 07/15/22 [Rx] Ticagrelor [Brilinta] 90 mg PO BID #60 tab 07/15/22 [Rx] Follow up Appointment(s)/Referral(s): Rainer Vazquez MD [STAFF PHYSICIAN] - 1 Week (Office will call to set up a follow up appointment.) Hayden Davis DO [REFERRING] - 07/20/22 10:30 am Patient Instructions/Handouts: Weight Management (DC), Heart Catheterization (DC), Mediterranean Diet (DC) Activity/Diet/Wound Care/Special Instructions: Activity: As tolerated Diet: Heart Healthy Special Instructions: Discuss with Dr. Davis the possability of Ozempic or Wegovy to help with weigh t loss. Seek medical care with lightheadedness, dizziness, increasing leg pain, bruising of the leg, or increasing size of the leg No lifting greater than 5 pounds for 1 week Discharge Disposition: HOME SELF-CARE
[2022-07-15 11:41] LABS: Glucose,Whole Blood 100 mg/dL (70-110)
[2022-07-15 16:42] LABS: Glucose,Whole Blood 98 mg/dL (70-110)
[2022-07-15 17:13] VITALS: BP 136/75
== END 2022-07-15 19:14 | disposition home or self-care (01) | DRG 246 ==
LOC: EC 14:31 → 3SCARD 16:23
PROVIDERS: ADMIT Internal Medicine; ATTEND Internal Medicine
PROC: B240ZZ3 Ultrasonography of Single Coronary Artery, Intravascular (ICD-10-PCS; principal; 2022-07-13 13:25)
PROC: B2111ZZ Fluoroscopy of Multiple Coronary Arteries using Low Osmolar Contrast (ICD-10-PCS; principal; 2022-07-13 13:25)
PROC: 4A023N7 Measurement of Cardiac Sampling and Pressure, Left Heart, Percutaneous Approach (ICD-10-PCS; principal; 2022-07-13 13:25)
PROC: 027034Z Dilation of Coronary Artery, One Artery with Drug-eluting Intraluminal Device, Percutaneous Approach (ICD-10-PCS; principal; 2022-07-13 13:25)
DX: I47.29 Other ventricular tachycardia (principal); I21.4 Non-ST elevation (NSTEMI) myocardial infarction; E87.20 Acidosis, unspecified; N17.9 Acute kidney failure, unspecified; Z68.44 Body mass index [BMI] 60.0-69.9, adult; I25.10 Atherosclerotic heart disease of native coronary artery without angina pectoris; E66.01 Morbid (severe) obesity due to excess calories; I49.02 Ventricular flutter; R73.03 Prediabetes; Z79.82 Long term (current) use of aspirin; K04.7 Periapical abscess without sinus; D72.829 Elevated white blood cell count, unspecified; Z28.310 Unvaccinated for COVID-19; Z28.21 Immunization not carried out because of patient refusal; R74.01 Elevation of levels of liver transaminase levels
CPT/HCPCS: 36415; 71045; 80048; 80053; 80306; 83036; 83605; 83735; 83880; 84100; 84439; 84443; 84481; 84484; 85025; 85027; 85610; 85730; 92960; 92978; 93005; 93308; 93458; 94760; 96365; 96366; 96367; 96372; 99291

== ENCOUNTER 2022-08-12 09:55 | Emergency (ER) | payer OTHER ==
[2022-08-12 10:01] VITALS: BP 151/84; PULSE 76; RESP 20; TEMP 97.3
--- NOTE | 2022-08-12 10:39 | ED ---
Extremity Problem HPI - General Chief complaint: Extremity Problem,Nontraumatic Stated complaint: Dr best - leg swelling Time Seen by Provider: 08/12/22 10:01 Source: patient, RN notes reviewed Mode of arrival: wheelchair Limitations: physical limitation - History of Present Illness Initial comments: This is a 52-year-old male who presents to the emergency department for right foot pain and swelling. States that this started yesterday. Reports a history of gout that used to occur 1-2 times a month after eating venison. However, he had a cardiac catheterization on 07/13 of this month and has since tried to eat healthier. He is now on a largely vegetarian diet and is eating a lot of spinach, asparagus, bursal sprouts, and broccoli. States that the pain started out feeling similar to gout near his right great toe, however the pain has progressed to the top of his foot and is worse whenever he tries to bear weight. When he had gout in the past, the foot was more so tender to any light touch as opposed to when bearing weight. Denies any injuries or fevers. He saw his primary care provider today, who instructed him to come to the emergency department for further evaluation and to rule out a blood clot. Denies any chest pain, shortness of breath, or history of blood clots. Denies any fevers, chills, sore throat, cough, dyspnea, chest pain, palpitations, abdominal pain, nausea, vomiting, diarrhea, back pain, or headaches. MD Complaint: extremity pain, extremity swelling Onset/Timin -: days(s) Location: right, lower extremity - Related Data Home Medications Medication Instructions Recorded Confirmed Losartan Potassium [Cozaar] 100 mg PO DAILY 08/12/22 08/12/22 Nitroglycerin 0.4 mg SL Q5M PRN 08/12/22 08/12/22 Previous Rx's Medication Instructions Recorded Aspirin 81 mg PO DAILY tab 07/15/22 Atorvastatin [Lipitor] 80 mg PO HS #30 tab 07/15/22 Metoprolol Tartrate [Lopressor] 25 mg PO BID #60 tab 07/15/22 Ticagrelor [Brilinta] 90 mg PO BID #60 tab 07/15/22 Colchicine 0.6 mg PO DIRECTED #6 tablet 08/12/22 HYDROcodone/APAP 7.5-325MG [Minot 1 tab PO Q6HR PRN 3 Days #12 tab 08/12/22 7.5-325] Allergies Allergy/AdvReac Type Severity Reaction Status Date / Time phenobarbital AdvReac hyperactivi Verified 08/12/22 13:08 ty Review of Systems ROS Statement: Those systems with pertinent positive or pertinent negative responses have been documented in the HPI. ROS Other: All systems not noted in ROS Statement are negative. Past Medical History Past Medical History: Hypertension Additional Past Medical History / Comment(s): prediabetes, Obesity History of Any Multi-Drug Resistant Organisms: None Reported Past Surgical History: Heart Catheterization With Stent Additional Past Surgical History / Comment(s): back Past Psychological History: No Psychological Hx Reported Smoking Status: Never smoker Past Alcohol Use History: None Reported Past Drug Use History: None Reported - Past Family History Father Family Medical History: Diabetes Mellitus General Exam Limitations: physical limitation General appearance: alert, in no apparent distress Head exam: Present: atraumatic, normocephalic, normal inspection Respiratory exam: Present: normal lung sounds bilaterally. Absent: respiratory distress, wheezes, rales, rhonchi, stridor Cardiovascular Exam: Present: regular rate, normal rhythm, normal heart sounds. Absent: systolic murmur, diastolic murmur, rubs, gallop, clicks Extremities exam: Present: other (Tenderness to palpation of the dorsal aspect of the right foot, primarily around the 1st MTP joint with surrounding erythema and swelling. 2+ DP and PT pulses and capillary refill less than 1 second.) Neurological exam: Present: alert, oriented X3, CN II-XII intact Psychiatric exam: Present: normal affect, normal mood Course Vital Signs 08/12/22 09:57 Temperature 97.3 F L Pulse Rate 76 Respiratory 20 Rate Blood Pressure 151/84 O2 Sat by Pulse 94 L Oximetry Medical Decision Making - Medical Decision Making This is a 52-year-old male who presents to the emergency department for right foot pain. Was pt. sent in by a medical professional or institution? @ -His PCP Did you speak to anyone other than the patient for history? @ -No Did you review nursing and triage notes? @ -Yes, and I agree, it is accurate with regards to the patient's symptoms. Were old charts reviewed? @ -No Differential Diagnosis? @ -Differential Foot Pain: Fracture, dislocation, gout, cellulitis, DVT, this is not meant to be an all- inclusive list. EKG interpreted by me (3pts min.)? @ -Not obtained X-rays interpreted by me (1pt min.)? @ -X-ray of the right foot obtained. My interpretation identifies moderate soft tissue swelling. I do not identify any acute fractures. CT interpreted by me (1pt min.)? @ -Not obtained U/S interpreted by me (1pt. min.)? @ -Duplex ultrasound of the right lower extremity obtained. My interpretation identifies no evidence of a DVT. What testing was considered but not performed? (CT, X-rays, U/S, labs)? Why? @ -None What meds were considered but not given? Why? @ -I offered pain medication, however the patient declined and states that they are not very effective for him. Did you discuss the management of the patient with other professionals? @ -No Did you reconcile home meds? @ -No Was smoking cessation discussed for >3mins.? @ -No Was critical care preformed (if so, how long)? @ -No Were there social determinants of health that impacted care today? How? (Homelessness, low income, unemployed, alcoholism, drug addiction, transportation, low edu. Level, literacy, decrease access to med. care, penitentiary, rehab)? @ -No Was there de-escalation of care discussed even if they declined? (Discuss DNR or withdrawal of care, Hospice)? @ -No What co-morbidities impacted this encounter? (DM, HTN, Smoking, COPD, CAD, Cancer, CVA, Hep., AIDS, mental health diagnosis, sleep apnea, morbid obesity)? @ -Morbid obesity, prediabetes Was patient admitted / discharged? @ -Discharged. X-ray of the right foot obtained revealing mild to moderate diffuse subcutaneous edema. Duplex US obtained revealing no evidence of a DVT. Physical exam is largely suggestive of gout due to the majority of his pain being in the right great toe. Dr. Corrales evaluated the patient as well, and believes that the symptoms are most likely related to gout. We discussed that we cannot definitively rule out an infection, however we will treat him for gout, and if he has no improvement or worsening of symptoms, he is instructed to return to the emergency department for evaluation of possible cellulitis. Discussed with the patient that while he is no longer eating meat, the vegetables he is eating such as spinach and asparagus can lead to gout attacks. Rx for colchicine and norco provided with dosing instructions reviewed. Advised he take the Minot sparingly when his pain is the most severe. Also advised he discuss the gout flare up with his dietitian as well to discuss dietary changes to reduce the risk of future gout attacks. Undiagnosed new problem with uncertain prognosis? @ -None Drug Therapy requiring intensive monitoring for toxicity (Heparin, Nitro, Insulin, Cardizem)? @ -None Were any procedures done? @ -None Diagnosis/symptom? @ -Gout Acute, or Chronic, or Acute on Chronic? @ -Acute Uncomplicated (without systemic symptoms) or Complicated (systemic symptoms)? @ -Uncomplicated Side effects of treatment? @ -None Exacerbation, Progression, or Severe Exacerbation] @ -Not applicable Poses a threat to life or bodily function? @ -The pain is making it somewhat difficult to ambulate for the mean time. Return precautions reviewed in depth, the patient is instructed to return to the emergency department with any new, worsening, or concerning symptoms. Patient verbalized understanding. This case was discussed in detail with the attending ED physician, Dr. Corrales. Presentation, findings, and treatment plan discussed in detail as well. - Radiology Data Radiology results: report reviewed, image reviewed Disposition Clinical Impression: Gout Disposition: HOME SELF-CARE Instructions (If sedation given, give patient instructions): Low Purine Diet (ED), Gout (ED) Additional Instructions: Return to the emergency department with any new, worsening, or concerning symptoms. Take the colchecine as 2 tablets (1.2mg) once, then take 1 tablet (0.6mg) 1 hour later. Repeat course in 3 days if symptoms persist. Take the Minot sparingly when your pain is the most severe. Discuss the gout attack when your dietitian to adjust the plant based diet to avoid foods that may further exacerbate this. Follow up with your primary care provider in 1-2 days. Prescriptions: Colchicine 0.6 mg PO DIRECTED #6 tablet HYDROcodone/APAP 7.5-325MG [Minot 7.5-325] 1 tab PO Q6HR PRN 3 Days #12 tab PRN Reason: Pain Is patient prescribed a controlled substance at d/c from ED?: Yes When asked, does pt state using other controlled substances?: No If prescribed controlled substance>3 days was MAPS reviewed?: Prescribed <3 Days Referrals: None,Stated [REFERRING] - 1-2 days
--- NOTE | 2022-08-12 10:47 | XR ---
EXAMINATION TYPE: XR foot complete RT DATE OF EXAM: 08/12/2022 CLINICAL HISTORY: Pain and swelling TECHNIQUE: Frontal, lateral, and oblique images of the right foot are obtained. COMPARISON: None FINDINGS: There is no acute fracture/dislocation evident in the right foot. Slight hallux valgus pos itioning first metatarsal-phalangeal joint. Mild to moderate spurring at this level. Mild to moderate diffuse subcutaneous edema is present. No suspicious bony destruction. IMPRESSION: As above.
--- NOTE | 2022-08-12 12:32 | US ---
EXAMINATION TYPE: US venous doppler duplex LE RT DATE OF EXAM: 08/12/2022 12:19 PM COMPARISON: NONE CLINICAL INDICATION: Male, 52 years old with history of Right foot pain and swelling; Right foot pain and swelling x couple days SIDE PERFORMED: Right TECHNIQUE: The lower extremity deep venous system is examined utilizing real time linear array sonog nam with graded compression, doppler sonography and color-flow sonography. VESSELS IMAGED: Common Femoral Vein Deep Femoral Vein Greater Saphenous Vein * Femoral Vein Popliteal Vein Small Saphenous Vein * Proximal Calf Veins (* superficial vessels) Technically difficult study due to morbidly obese patient Right Leg: Appears negative for DVT Right groin: 7.9 x 2.4 x 5.2cm complex area seen anterior to [employer] Grayscale, color doppler, spectral doppler imaging performed of the deep veins of the right lower ext remity. IMPRESSION: Suboptimal study without acute DVT in the right lower extremity. There is nonsimple 8.0 cm oval fluid collection in the right groin region. Consider focal hematoma. Correlate clinically.
== END 2022-08-13 00:15 | disposition home or self-care (01) ==
LOC: EC 09:55
DX: M10.9 Gout, unspecified (principal); I10 Essential (primary) hypertension; E66.01 Morbid (severe) obesity due to excess calories; Z68.44 Body mass index [BMI] 60.0-69.9, adult; Z88.8 Allergy status to other drugs, medicaments and biological substances; Z79.899 Other long term (current) drug therapy
CPT/HCPCS: 99284

== ENCOUNTER → 2023-04-06 | Outpatient (CLI) | payer OTHER ==
[2023-04-06 16:55] LABS: Basophils # (A) 0.04 X 10*3/uL (0.00-0.10); Basophils % (A) 0.6 %; Eosinophils # (A) 0.08 X 10*3/uL (0.04-0.35); Eosinophils % (A) 1.3 %; HCT 42.2 % (39.6-50.0); HGB 13.4 g/dL (13.0-17.0); Lymphocytes # (A) 1.25 X 10*3/uL (0.90-5.00); Lymphocytes % (A) 20.2 %; MCH 30.8 pg (27.0-32.0); MCHC 31.8 g/dL (32.0-37.0); Mean Platelet Volume 12.9 FL (9.5-12.2); Monocytes % (A) 6.5 %; NRBC Per 100 WBC 0 X 10*3/uL (0.00-0.01); Neutrophils % (A) 71.1 %; Platelet Count 193 X 10*3/uL (140-440); RBC 4.35 X 10*6/uL (4.40-5.60); WBC 6.19 X 10*3/uL (4.50-10.00)
[2023-04-06 17:11] LABS: Appearance,Urine Cloudy (Clear); Bilirubin,Urine Negative (Negative); Blood,Urine Small (Negative); Color,Urine Yellow (Yellow); Ketones,Urine Negative (Negative); Nitrite,Urine Negative (Negative); Specific Gravity,Urine 1.012 (1.001-1.030); Urobilinogen,Urine 0.2 E.U./DL
[2023-04-06 17:16] LABS: ALT 56 U/L (10-49); AST 30 U/L (14-35); Alkaline Phosphatase 74 U/L (41-126); BUN/Creat Ratio 15.78 Ratio (12.00-20.00); Blood Urea Nitrogen 14.2 mg/dL (9.0-27.0); Calcium 9.3 mg/dL (8.7-10.3); Carbon Dioxide 20.8 mmol/L (21.6-31.8); Chloride 106 mmol/L (96-109); Globulin 2.5 g/dL (1.6-3.3); Glucose 97 mg/dL (70-110); Potassium 5.1 mmol/L (3.5-5.5); Sodium 139 mmol/L (135-145); Total Bilirubin 0.5 mg/dL (0.3-1.2); Total Protein 6.5 g/dL (6.2-8.2)
[2023-04-06 17:17] LABS: Bacteria,Urine None Seen (None Seen)
== END | disposition home or self-care (01) ==
LOC: LABPAT 09:50
PROVIDERS: ATTEND Urology
DX: Z01.812 Encounter for preprocedural laboratory examination (principal); N20.0 Calculus of kidney
CPT/HCPCS: 80053; 81001; 85025; 86850; 86900; 86901; 87086

== ENCOUNTER 2023-04-14 08:57 | Day surgery (SDC) | payer OTHER ==
--- NOTE | 2023-04-13 12:13 | P.GSHP ---
History of Present Illness H&P Date: 04/13/23 52 yo male with recurrent hematuria that was referred to me and found to have a branched staghorn calculous of the left kidney. Due to the size of the stone[>3cm] and his morbid obesity we have chosen left pcnl. The risks , complications and alternatives have been discussed He comes for this procedure. - Constitutional Constitutional: Denies chills, Denies fever - EENT Eyes: denies blurred vision, denies pain Ears, nose, mouth and throat: Denies headache, Denies sore throat - Cardiovascular Cardiovascular: Denies chest pain, Denies shortness of breath - Respiratory Respiratory: Denies cough, Denies 7 - Gastrointestinal Gastrointestinal: Denies abdominal pain, Denies diarrhea, Denies nausea, Denies vomiting - Genitourinary (Female) Genitourinary: Denies dysuria, Denies hematuria - Genitourinary (Male) Genitourinary: Denies dysuria, Denies hematuria - Musculoskeletal Musculoskeletal: Denies myalgias - Integumentary Integumentary: Denies pruritus, Denies rash - Neurological Neurological: Denies numbness, Denies weakness - Psychiatric Psychiatric: Denies anxiety, Denies depression - Endocrine Endocrine: Denies fatigue, Denies weight change Past Medical History Past Medical History: Chest Pain / Angina, Hyperlipidemia, Hypertension, Myocardial Infarction (NM) Additional Past Medical History / Comment(s): gout, obesity - pt. has lost 118 lbs. since 08/04 when he had NM Last Myocardial Infarction Date:: 07/12/22 History of Any Multi-Drug Resistant Organisms: None Reported Past Surgical History: Heart Catheterization With Stent Additional Past Surgical History / Comment(s): lumbar discectomy 1997 Additional Past Anesthesia/Blood Transfusion Reaction / Comment(s): "tried to give me a general anesthetic for my back surgery and I wouldn't go out" Date of Last Stent Placement:: 07/13/22 Smoking Status: Never smoker - Past Family History Father Family Medical History: Cancer, Diabetes Mellitus Additional Family Medical History / Comment(s): prostate cancer Medications and Allergies Home Medications Medication Instructions Recorded Confirmed Type Aspirin 81 mg PO DAILY tab 07/15/22 04/09/23 Rx Metoprolol Tartrate [Lopressor] 25 mg PO BID #60 tab 07/15/22 04/09/23 Rx Ticagrelor [Brilinta] 90 mg PO BID #60 tab 07/15/22 04/09/23 Rx Losartan Potassium [Cozaar] 100 mg PO DAILY 08/12/22 04/09/23 History Nitroglycerin 0.4 mg SL Q5M PRN 08/12/22 04/09/23 History Atorvastatin [Lipitor] 80 mg PO QAM 04/09/23 04/09/23 History Sulfamethoxazole/Trimethoprim 1 each PO BID 04/09/23 04/09/23 History [Sulfamethoxazole/Trimethoprim DS Tablet] Allergies Allergy/AdvReac Type Severity Reaction Status Date / Time phenobarbital AdvReac hyperactivi Verified 04/09/23 14:23 ty Surgical - Exam - General obese - Eyes normal ocular movement, no icteric - ENT no hearing loss, no congestion - Neck no masses, trachea midline - Respiratory normal respiratory effort, clear to auscultation - Abdomen Abdomen: soft, non tender, no guarding, no rigid, no rebound - Integumentary no rash, no abnormal pigmentation - Neurologic no disoriented, no combative - Psychiatric oriented to time, oriented to person, oriented to place, speech is normal, memory intact Results - Imaging Abdominal x-ray: report reviewed, image reviewed CT scan - abdomen: report reviewed, image reviewed CT scan - pelvis: report reviewed, image reviewed Assessment and Plan Assessment: Impression: staghorn calculous left., morbid obesity Plan: cysto with left pcnl
[~2023-04-14 08:57] MED LIST: AMPICILLIN 1,000 MG in SODIUM CHLORIDE 0.9% 50 ML IVPB PRN; DEXAMETHASONE SOD PHOSPHATE 4 MG/ML 1 ML VIAL IV ONE; GENTAMICIN 160 MG in SODIUM CHLORIDE 0.9% 100 ML IVPB PRN; HYDROmorphone 0.5 MG/0.5 ML SYRINGE IVP PRN; ONDANSETRON 4 MG/2 ML VIAL IVP ONE
--- NOTE | 2023-04-14 09:12 | XR ---
EXAMINATION TYPE: XR KUB DATE OF EXAM: 04/14/2023 Comparison: None Clinical History: 52-year-old male Left Renal Stone N20.0 Findings: Large staghorn calculi throughout the left renal collecting system. Rounded densities in the pelvis m easuring up to 5 mm likely phleboliths. Scattered moderate stool. Nonobstructive bowel gas pattern. L heron bases are clear. Impression: 1. Large staghorn calculi involving the left renal collecting system. 2. A couple rounded calcifications in the left side of the pelvis probably phleboliths. 3. Moderate stool were noted.
[2023-04-14] MEDS: LACTATED RINGERS 1,000 ML IV SCH (09:27)
[2023-04-14] MEDS ORDERED: LACTATED RINGERS 1,000 ML IV ONE (14:22)
[2023-04-14] MEDS ORDERED: NITROGLYCERIN SL TABS 0.4 MG TAB SUBLINGUAL PRN (15:28)
[2023-04-14] MEDS ORDERED: MAG HYDROX/AL HYDROX/SIMETH 30 ML CUP PO PRN (15:29)
[2023-04-14] MEDS ORDERED: ONDANSETRON 4 MG/2 ML VIAL IVP PRN (15:29)
[2023-04-14] MEDS ORDERED: NALOXONE 0.4 MG/ML 1 ML VIAL IV PRN (15:29)
[2023-04-14] MEDS ORDERED: ACETAMINOPHEN TAB 325 MG TAB PO PRN (15:29)
--- NOTE | 2023-04-14 15:39 | P.OP ---
Date of Procedure: 04/14/23 Preoperative Diagnosis: Left ureteral calculus, large (greater than 3 cm, full branch staghorn calculus) ( Postoperative Diagnosis: Same Procedure(s) Performed: Cystoscopy placement of occluding balloon catheter left, percutaneous nephrostomy (Dr. Little) percutaneous nephrostolithotomy with ultrasound and laser, placement of 12 J nephrostomy Anesthesia: RAMANA Surgeon: Edgar Little Estimated Blood Loss (ml): 50 Pathology: other (Stone) Condition: stable Disposition: PACU Indications for Procedure: Patient is a 52-year-old morbidly obese individual with a full branch staghorn calculus (greater than 3 cm) on the left side. He comes for percutaneous nephrostolithotomy left Operative Findings: Full branch staghorn calculus left. Intraoperative development of atrial fibrillation, controlled rate Description of Procedure: Patient brought to the operating suite. Given a general anesthetic. He's placed in a frog position with a sterile prep and drape. Cystoscopy Foroblique lens and 21-Macedonian sheath identifies a nonobstructing prostate. The left ureteral orifice is identified and intubated with a 5-Macedonian occluding balloon catheter passed into the renal pelvis. The balloon is insufflated. A 16-Macedonian Smalls catheters placed The patient develops atrial fibrillation put on a controlled rate. Anesthesia feels comfortable that I continue with the procedure. The patient's placed in a prone position to care to airways and extremities. He is prepped and draped sterilely. I performed percutaneous access to a left upper pole calyx. This will be dictated separately. I dilate the tract to 30- Macedonian. Introduced the rigid sheath into the upper pole calyx. I introduced a rigid nephroscope into the collecting system and stone is seen. Tediously over the next 3 hours I break up stone with ultrasound either suction out the small fragments are grabbed the larger fragments and remove them from the kidney. Remove about three quarters of the stone but there are still stone in an upper pole calyx as well as a lower pole collecting system of a bifid pelvis. I used the flexible nephroscope and enter the upper pole calyx that contained see stone. Using the 275 laser probe the stone was broken into smaller pieces and basketed out. I then do intraoperative nephrostogram and identify the lower pole electing system with the large stone in it. I eventually I'm able to find the ostium to this. I have to do an infundibulotomy to open the ostium such that I can advance the scope into the lower pole collection system. I used both laser and ultrasound to break up the stone and suction and then I basket the largest fragments. At the end of the procedure I do another intraoperative nephrostogram and the nursing staff be no remaining stone. I do one more look with the flexible nephroscope throughout the collecting system and down the ureter and see no remaining stones. A 12 J nephrostomy tube was placed and secured to the skin with 2-0 silk. The patient awake and returned recovery in good condition. He tolerated procedure well. Blood loss is 50 mL.
--- NOTE | 2023-04-14 15:43 | P.PCN ---
Date of Procedure: 04/14/23 Preoperative Diagnosis: Full branch staghorn calculus left Postoperative Diagnosis: Same Procedure(s) Performed: Left percutaneous nephrostomy access Anesthesia: ARNIEA Surgeon: Edgar Little Condition: stable Disposition: PACU Indications for Procedure: Patient is a full branch staghorn calculus I will perform percutaneous nephros etienne access prior to percutaneous nephrostolithotomy left Description of Procedure: Patient is previously then anesthetized. Occluding balloon catheters placed up in the proximal ureter. He's placed in a prone position with care to airways and extremities. Its as a sterile prep and drape. I first attempted percutaneous access to the lower pole calyx that contains the large stone. I'm unable to advance any wire by the impacted stone. Then see a posterior upper pole calyx between the 11th and 12th rib. He is in the Chiba needle I'm able to intubate that calyx. I then pass the cope wire through the Chiba needle into the renal pelvis. I removed the Chiba needle and then pass a 3-Gabonese dilating catheter over the wire into the renal pelvis. I removed the cope wire and pass an 035 Glidewire into the collecting system. Remove the 3-Gabonese dilating catheter and place a kumpf catheter over the wire and direct the wire down ureter. I advanced the Kumpe wire down the ureter and then remove the 035 Glidewire and pass an 035 Super Stiff wire down the ureter. I then pass the 8-10-Gabonese coaxial dilating catheter I removed the 8-Gabonese and passed a safety wire down the ureter through the 10-Gabonese catheter. Over the working wire I then dilated the tract to 30-Gabonese with the dilating balloon. I then proceed with percutaneous nephrostolithotomy which is dictated elsewhere.
--- NOTE | 2023-04-14 16:03 | FL ---
EXAMINATION TYPE: FL Perc Nephrostomy New Access DATE OF EXAM: 04/14/2023 COMPARISON: NONE HISTORY: 52 year-old male left renal stone. TECHNIQUE: Fluoroscopy. FINDINGS: PERCUTANEOUS NEPHROSTOMY FOR L RENAL CALCULUS, 16MIN 45SEC FL TIME, DAP=17.01 Gycm2. IMPRESSION: Fluoroscopy for urology procedure as above.
[2023-04-14] MEDS ORDERED: HYDROmorphone PCA 10 MG/50 ML BAG IV PRN (16:32)
[2023-04-14] MEDS: SULFAMETHOX-TMP 800-160MG 1 EACH TAB PO SCH (20:53)
[2023-04-14] MEDS: DEXTROSE 5%-0.45% NACL 1,000 ML IV SCH (20:54)
[2023-04-14] MEDS ORDERED: METOPROLOL TARTRATE 25 MG TAB PO SCH (21:00)
[2023-04-15] MEDS: DEXTROSE 5%-0.45% NACL 1,000 ML IV SCH (05:24)
[2023-04-15] MEDS: SULFAMETHOX-TMP 800-160MG 1 EACH TAB PO SCH (08:30)
--- NOTE | 2023-04-15 08:50 | P.PN ---
Subjective Progress Note Date: 04/15/23 The patient underwent a left percutaneous nephrostolithotomy yesterday. He went into atrial fibrillation intraoperatively. The rate is been controlled. He remains in A. fib but is asymptomatic. Objective - Vital Signs Vital signs: Vital Signs Temp 97.8 F 04/15/23 08:13 Pulse 60 04/15/23 08:18 Resp 18 04/15/23 08:18 BP 116/78 04/15/23 08:18 Pulse Ox 97 04/15/23 08:18 FiO2 Intake & Output 04/14/23 04/15/23 04/15/23 18:59 06:59 18:59 Intake Total 1454 3360 Output Total 450 3030 200 Balance 1004 330 -200 Weight 148.8 kg Intake: IV 1454 Oral 3360 Output: Drainage 1330 200 Left Back 1330 200 Urine 400 1700 Estimated Blood Loss 50 Other: Voiding Method Indwelling Catheter Assessment and Plan Assessment: Impression: Successful percutaneous nephrostolithotomy left with clearing urine. Atrial fibrillation new onset rate controlled. Recommendations: From a urologic standpoint he can be discharged home. Cardiology has been counseled and pending their recommendations as to further urologic care. I do not want any anticoagulants for a week as he has just undergone surgery.
[2023-04-15] MEDS ORDERED: METOPROLOL TARTRATE 50 MG TAB PO SCH (09:00)
[2023-04-15] MEDS ORDERED: ATORVASTATIN 80 MG TAB PO SCH (09:00)
[2023-04-15] MEDS ORDERED: LOSARTAN 50 MG TAB PO SCH (09:00)
[2023-04-15] MEDS: LACTATED RINGERS 1,000 ML IV SCH (10:32)
[2023-04-15 10:44] LABS: Basophils % (A) 0 %; Eosinophils # (A) 0.1 k/uL (0-0.7); Eosinophils % (A) 1 %; HCT 38.9 % (39.0-53.0); HGB 12.7 gm/dL (13.0-17.5); Lymphocytes # (A) 0.9 k/uL (1.0-4.8); Lymphocytes % (A) 11 %; MCH 31.3 pg (25.0-35.0); MCHC 32.5 g/dL (31.0-37.0); MCV 96.4 fL (80.0-100.0); Monocytes # (A) 0.5 k/uL (0-1.0); Monocytes % (A) 6 %; Neutrophils # (A) 6.5 k/uL (1.3-7.7); Neutrophils % (A) 81 %; Platelet Count 138 k/uL (150-450); RBC 4.04 m/uL (4.30-5.90); RDW 14.1 % (11.5-15.5)
[2023-04-15 10:58] LABS: ALT 32 U/L (4-49); AST 19 U/L (17-59); African American GFR (CKD) >90 (>60 ml/min/1.73 sqM); Albumin 3.4 g/dL (3.5-5.0); Alkaline Phosphatase 70 U/L (38-126); Anion Gap 6 mmol/L; Blood Urea Nitrogen 15 mg/dL (9-20); Calcium 9.1 mg/dL (8.4-10.2); Carbon Dioxide 26 mmol/L (22-30); Chloride 103 mmol/L (98-107); Glucose 95 mg/dL (74-99); Non-African American GFR(CKD) >90 (>60 ml/min/1.73 sqM); Potassium 4.4 mmol/L (3.5-5.1); Sodium 135 mmol/L (137-145); Total Bilirubin 0.8 mg/dL (0.2-1.3); Total Protein 6.1 g/dL (6.3-8.2)
[2023-04-15 11:52] VITALS: BP 105/72; PULSE 87; TEMP 98.3
[2023-04-15 14:43] VITALS: RESP 16
--- NOTE | 2023-04-15 16:49 | P.CRDCN ---
History of Present Illness Consult date: 04/15/23 Consult reason: atrial fibrillation Chief complaint: new onset a-fib History of present illness: History of present illness: Patient is a pleasant 52-year-old male with significant past medical history of CAD status post PCI of the LAD in 07/2022, hypertension, and recurrent hematuria related to left ureteral calculus who presented for elective cystoscopy and left percutaneous nephrostomy. He was then found to have new onset atrial fibrillation intraprocedure for which cardiology was consulted. He does follow with Dr. Vazquez in the office. Patient denies any prior history of atrial fibrillation. He denies feeling any palpitations or heart racing episodes. He had prior echocardiogram 07/2022 with a EF 50-55%. He denies any history of stroke, diabetes, heart failure. He states he has lost 128 pounds intentionally since he had his stents placed and he feels better overall with more energy. He denies any chest pain or pressure. Denies any shortness of breath, fatigue, swelling. He feels at his baseline currently. Telemetry does show atrial fibrillation, rates controlled. REVIEW OF SYSTEMS: No fever or chills. No cough or expectoration. No diaphoresis. Patient denies headache, dizziness, blurred vision, double vision. Patient denies any stomach discomfort. No nausea, vomiting. No hematochezia. No hematemesis. Denies any black stools or blood in his stools. Denies dysuria or hematuria. No muscle weakness or numbness. No chest pain or pressure. PHYSICAL EXAMINATION: This is a 52-year-old male in no apparent distress at the time of my examination. HEENT: Head is atraumatic, normocephalic. Pupils are equal, round. Sclerae anicteric. Conjunctivae are clear. Mucous membranes of the mouth are moist. Neck is supple. There is no jugular venous distention. No carotid bruit is heard. CHEST EXAMINATION: Lungs are clear to auscultation. No chest wall tenderness is noted on palpation or with deep breathing. HEART EXAMINATION: Irregular rate and rhythm. S1, S2 heard. No murmurs, gallops or rub. ABDOMEN: Soft, nontender. Bowel sounds are heard. Left nephrostomy drain intact. EXTREMITIES: 2+ peripheral pulses with no evidence of peripheral edema and no calf tenderness noted. NEUROLOGIC EXAMINATION: Patient is awake, alert and oriented x3. IMPRESSION AND PLAN: New onset atrial fibrillation, paroxysmal, rate controlled Status post percutaneous nephrostolithotomy CAD status post PCI of the LAD 07/2022 Hypertension PLAN: Per urology recommendations hold anticoagulation for 1 week. [id number] score is 2 (CAD and HTN) recommend anticoagulation for stroke prevention. We recommend starting Eliquis 5 mg twice daily on 04/22/2023 and stop aspirin at that time and continue with Brilinta. Follow-up in the office in [address] Vazquez. Okay to discharge home from cardiology standpoint. I am dictating on behalf of Dr. Chase Stubbs's history/physical and assessment/plan. Past Medical History Past Medical History: Chest Pain / Angina, Hyperlipidemia, Hypertension, Myocardial Infarction ([place]) Additional Past Medical History / Comment(s): gout, obesity - pt. has lost 118 lbs. since 08/04 when he had [place] Last Myocardial Infarction Date:: 07/12/22 History of Any Multi-Drug Resistant Organisms: None Reported Past Surgical History: Heart Catheterization With Stent Additional Past Surgical History / Comment(s): lumbar discectomy 1997 Additional Past Anesthesia/Blood Transfusion Reaction / Comment(s): "tried to give me a general anesthetic for my back surgery and I wouldn't go out" Date of Last Stent Placement:: 07/13/22 Past Psychological History: No Psychological Hx Reported Smoking Status: Never smoker Past Alcohol Use History: None Reported Additional Past Alcohol Use History / Comment(s): used to have occassional social drink but none since 07/11/22 Past Drug Use History: None Reported - Past Family History Father Family Medical History: Cancer, Diabetes Mellitus Additional Family Medical History / Comment(s): prostate cancer Mother Family Medical History: COPD Additional Family Medical History / Comment(s): fpc smoker Medications and Allergies Home Medications Medication Instructions Recorded Confirmed Type Aspirin 81 mg PO DAILY tab 07/15/22 04/14/23 Rx Metoprolol Tartrate [Lopressor] 25 mg PO BID #60 tab 07/15/22 04/14/23 Rx Ticagrelor [Brilinta] 90 mg PO BID #60 tab 07/15/22 04/14/23 Rx Losartan Potassium [Cozaar] 100 mg PO DAILY 08/12/22 04/14/23 History Nitroglycerin 0.4 mg SL Q5M PRN 08/12/22 04/14/23 History Atorvastatin [Lipitor] 80 mg PO QAM 04/09/23 04/14/23 History Sulfamethoxazole/Trimethoprim 1 each PO BID 04/09/23 04/14/23 History [Sulfamethoxazole/Trimethoprim DS Tablet] Allergies Allergy/AdvReac Type Severity Reaction Status Date / Time phenobarbital AdvReac hyperactivi Verified 04/14/23 09:33 ty Physical Exam Vitals: Vital Signs Temp Pulse Resp BP BP BP Pulse Ox 04/15/23 14:31 16 04/15/23 11:23 98.3 F 87 18 105/72 90 L 04/15/23 09:15 18 04/15/23 08:18 60 18 116/78 97 04/15/23 08:13 97.8 F 140 H 18 94/57 90 L 04/15/23 05:00 98.0 F 90 16 106/65 95 04/15/23 02:00 80 16 04/15/23 00:00 97.8 F 80 16 98/66 94 L 04/14/23 20:00 98.3 F 80 18 111/71 96 04/14/23 18:20 97.7 F 98 16 98 04/14/23 17:30 92 16 98/67 93 L 04/14/23 16:58 99 16 112/65 93 L 04/14/23 16:45 97 16 105/68 95 Intake and Output 04/15/23 04/15/23 04/15/23 06:59 14:59 22:59 Intake Total 3360 472 Output Total 3030 1725 Balance 330 -1253 Intake: Oral 3360 472 Output: Drainage 1330 975 Left Back 1330 975 Urine 1700 750 Uretheral (Smalls) 300 Other: Voiding Method Indwelling Catheter Indwelling Catheter Results 04/15/23 09:55 04/15/23 09:55 Cardiac Enzymes 04/15/23 Range/Units 09:55 AST 19 (17-59) U/L CBC 04/15/23 Range/Units 09:55 WBC 8.0 (3.8-10.6) k/uL RBC 4.04 L (4.30-5.90) m/uL Hgb 12.7 L (13.0-17.5) gm/dL Hct 38.9 L (39.0-53.0) % Plt Count 138 L (150-450) k/uL Comprehensive Metabolic Panel 04/15/23 Range/Units 09:55 Sodium 135 L (137-145) mmol/L Potassium 4.4 (3.5-5.1) mmol/L Chloride 103 (98-107) mmol/L Carbon Dioxide 26 (22-30) mmol/L BUN 15 (9-20) mg/dL Creatinine 0.84 (0.66-1.25) mg/dL Glucose 95 (74-99) mg/dL Calcium 9.1 (8.4-10.2) mg/dL AST 19 (17-59) U/L ALT 32 (4-49) U/L Alkaline Phosphatase 70 (38-126) U/L Total Protein 6.1 L (6.3-8.2) g/dL Albumin 3.4 L (3.5-5.0) g/dL Current Medications Generic Name Dose Route Start Last Admin Trade Name Freq PRN Reason Stop Dose Admin Acetaminophen 650 mg 04/14/23 15:29 Acetaminophen Tab 325 Mg Tab PO 05/14/23 15:30 Q4HR PRN Fever and/ or Mild Pain Al Hydroxide/Mg Hydroxide 30 ml 04/14/23 15:29 Mag Hydrox/Al Hydrox/Simeth 30 Ml Cup PO 05/14/23 15:30 QID PRN Indigestion Atorvastatin Calcium 80 mg 04/15/23 09:00 04/15/23 08:20 Atorvastatin 80 Mg Tab PO 05/15/23 09:01 80 mg QAM RILEY Administration Hydromorphone HCl 10 mg 04/14/23 16:32 Hydromorphone Shop Tech 10 Mg/50 Ml Bag IV 05/14/23 16:33 PER PROTOCOL PRN Pain Control Protocol Lactated Ringer's 1,000 mls @ 20 mls/hr 04/14/23 08:23 04/15/23 10:32 Lactated Ringers IV 05/14/23 08:24 Not Given .Q24H RILEY Losartan Potassium 100 mg 04/15/23 09:00 04/15/23 08:21 Losartan 50 Mg Tab PO 05/15/23 09:01 100 mg DAILY RILEY Administration Metoprolol Tartrate 50 mg 04/15/23 09:00 04/15/23 08:21 Metoprolol Tartrate 50 Mg Tab PO 50 mg BID RILEY Administration Naloxone HCl 0.2 mg 04/14/23 15:29 Naloxone 0.4 Mg/Ml 1 Ml Vial IV 05/14/23 15:30 Q2M PRN Opioid Reversal Nitroglycerin 0.4 mg 04/14/23 15:28 Nitroglycerin Sl Tabs 0.4 Mg Tab SUBLINGUAL 05/14/23 15:29 Q5M PRN Chest Pain Ondansetron HCl 4 mg 04/14/23 15:29 Ondansetron 4 Mg/2 Ml Vial IVP 05/14/23 15:30 Q6HR PRN Nausea And Vomiting Trimethoprim/Sulfamethoxazole 1 each 04/14/23 21:00 04/15/23 08:30 Sulfamethox-Tmp 800-160mg 1 Each Tab PO 05/14/23 21:01 1 each BID RILEY Administration Protocol Intake and Output 04/15/23 04/15/23 04/15/23 06:59 14:59 22:59 Intake Total 3360 472 Output Total 3030 1725 Balance 330 -1253 Intake: Oral 3360 472 Output: Drainage 1330 975 Left Back 1330 975 Urine 1700 750 Uretheral (Smalls) 300 Other: Voiding Method Indwelling Catheter Indwelling Catheter 04/15/23 09:55 04/15/23 09:55
--- NOTE | 2023-04-15 16:51 | P.DS ---
Providers Date of admission: 04/14/2023 Attending physician: Edgar Little Consults: 04/14/23 15:43 Consult Physician Urgent Consulting Provider: Chase Stubbs Consult Reason/Comments: afib controlled rate developed intraop no anticoag x 1 week Do you want consulting provider notified?: Yes Primary care physician: [facility] Course: The patient underwent a left pcnl 04/14/23. He developed intraop afib with a controlled rate. He had no problems intra or post op. He saw Dr Stubbs today who said he could go home on all his meds but to hold the eliquis until I said its ok to resume. His diet is regular. He will go home with the n tube. He will fu in the office 04/19/23. Hi condition i good. Patient Condition at Discharge: Good Plan - Discharge Summary Discharge Rx Participant: No New Discharge Prescriptions: No Action Losartan Potassium [Cozaar] 100 mg PO DAILY Nitroglycerin 0.4 mg SL Q5M PRN PRN Reason: Chest Pain Sulfamethoxazole/Trimethoprim [Sulfamethoxazole/Trimethoprim DS Tablet] 1 each PO BID Aspirin 81 mg PO DAILY tab Ticagrelor [Brilinta] 90 mg PO BID #60 tab Metoprolol Tartrate [Lopressor] 25 mg PO BID #60 tab Atorvastatin [Lipitor] 80 mg PO QAM Discharge Medication List Aspirin 81 mg PO DAILY tab 07/15/22 [Rx] Metoprolol Tartrate [Lopressor] 25 mg PO BID #60 tab 07/15/22 [Rx] Ticagrelor [Brilinta] 90 mg PO BID #60 tab 07/15/22 [Rx] Losartan Potassium [Cozaar] 100 mg PO DAILY 08/12/22 [History] Nitroglycerin 0.4 mg SL Q5M PRN 08/12/22 [History] Atorvastatin [Lipitor] 80 mg PO QAM 04/09/23 [History] Sulfamethoxazole/Trimethoprim [Sulfamethoxazole/Trimethoprim DS Tablet] 1 each PO BID 04/09/23 [History] Follow up Appointment(s)/Referral(s): Edgar Little MD [STAFF PHYSICIAN] - 04/19/23 (home with nephrostomy tube) Discharge Disposition: HOME SELF-CARE
== END 2023-04-15 18:29 | disposition home or self-care (01) ==
LOC: OR 08:57 → 3SCARD 15:24 → OR 04-15 18:29
PROVIDERS: ATTEND Urology
DX: N20.2 Calculus of kidney with calculus of ureter (principal); I10 Essential (primary) hypertension; E78.5 Hyperlipidemia, unspecified; I25.2 Old myocardial infarction; Z83.3 Family history of diabetes mellitus; Z79.82 Long term (current) use of aspirin; Z79.899 Other long term (current) drug therapy; Z79.02 Long term (current) use of antithrombotics/antiplatelets
CPT/HCPCS: 80053; 85025; 82365; 50432; 74018; 50081; C1769 ×4; C2628; C1729 ×2; C1894; J1100; J2405; J1580; J0290; J1170

== ENCOUNTER 2023-04-27 11:37 | Inpatient (IN) | payer OTHER ==
[2023-04-27] MEDS: MIDAZOLAM 1 MG/ML 5 ML VIAL IV STA ×2 (11:59→12:21)
[2023-04-27] MEDS: DEXTROSE 5% IN WATER 100 ML with AMIODARONE 150 MG IV ONE (12:23)
[2023-04-27] MEDS: SODIUM CHLORIDE 0.9% 1,000 ML IV STA (12:29)
[2023-04-27] MEDS: SODIUM CHLORIDE 0.9% 500 ML 500 ML IV STA ×2 (12:30)
[2023-04-27] MEDS: NOREPINEPHRINE 4 MG in SODIUM CHLORIDE 0.9% 250 ML IV ONE (12:39)
--- NOTE | 2023-04-27 12:40 | ED ---
General Adult HPI - General Chief complaint: Arrhythmia/Palpitations Stated complaint: Dizziness, Tachy Time Seen by Provider: 04/27/23 11:48 Source: patient, EMS, RN notes reviewed Mode of arrival: EMS Limitations: no limitations - History of Present Illness Initial comments: Patient is a pleasant 52-year-old male presenting to the emergency department with palpitations. Onset was prior to arrival. Patient was walking from the garage when suddenly he did not feel well. Patient felt short of breath and lightheaded. Patient recently was diagnosed with atrial fibrillation just a couple of weeks ago. Patient is on metoprolol and Eliquis for this. - Related Data Home Medications Medication Instructions Recorded Confirmed Losartan Potassium [Cozaar] 100 mg PO DAILY 08/12/22 04/14/23 Nitroglycerin 0.4 mg SL Q5M PRN 08/12/22 04/14/23 Atorvastatin [Lipitor] 80 mg PO QAM 04/09/23 04/14/23 Sulfamethoxazole/Trimethoprim 1 each PO BID 04/09/23 04/14/23 [Sulfamethoxazole/Trimethoprim DS Tablet] Previous Rx's Medication Instructions Recorded Aspirin 81 mg PO DAILY tab 07/15/22 Metoprolol Tartrate [Lopressor] 25 mg PO BID #60 tab 07/15/22 Ticagrelor [Brilinta] 90 mg PO BID #60 tab 07/15/22 Allergies Allergy/AdvReac Type Severity Reaction Status Date / Time phenobarbital AdvReac hyperactivi Verified 04/14/23 09:33 ty Review of Systems ROS Statement: Those systems with pertinent positive or pertinent negative responses have been documented in the HPI. ROS Other: All systems not noted in ROS Statement are negative. Constitutional: Denies: fever Eyes: Denies: eye pain ENT: Denies: ear pain Respiratory: Reports: dyspnea Cardiovascular: Reports: palpitations Endocrine: Reports: fatigue Past Medical History Past Medical History: Hypertension Additional Past Medical History / Comment(s): prediabetes, Obesity History of Any Multi-Drug Resistant Organisms: None Reported Past Surgical History: Heart Catheterization With Stent Additional Past Surgical History / Comment(s): back Past Psychological History: No Psychological Hx Reported Smoking Status: Never smoker Past Alcohol Use History: None Reported Past Drug Use History: None Reported - Past Family History Father Family Medical History: Cancer, Diabetes Mellitus Mother Family Medical History: COPD General Exam Limitations: no limitations General appearance: alert Head exam: Present: normocephalic Eye exam: Present: normal appearance Respiratory exam: Present: normal lung sounds bilaterally Cardiovascular Exam: Present: tachycardia Expanded Peripheral pulses: 2+: Radial (R), Radial (L) GI/Abdominal exam: Present: soft. Absent: tenderness Extremities exam: Present: normal inspection. Absent: pedal edema, calf tenderness Neurological exam: Present: alert Psychiatric exam: Present: normal affect, normal mood Skin exam: Present: normal color Course Vital Signs 04/27/23 04/27/23 04/27/23 11:39 11:51 12:00 Temperature 98.1 F Pulse Rate 195 H 203 H 206 H Pulse Rate [ 210 H Medicare Sales Representative ] Respiratory 20 8 L 12 Rate Blood Pressure 106/96 106/96 77/55 O2 Sat by Pulse 100 100 97 Oximetry 04/27/23 04/27/23 04/27/23 12:30 13:00 13:02 Temperature Pulse Rate 88 81 84 Pulse Rate [ Medicare Sales Representative ] Respiratory 28 H 31 H 18 Rate Blood Pressure 71/37 85/53 80/52 O2 Sat by Pulse Oximetry - Reevaluation(s) Reevaluation #1: 04/27/23 12:35 EKG #2 also interpreted by myself shows sinus rhythm at 91. Normal axis. Nonspecific intraventricular conduction delay. No acute ST change. EKG Findings - EKG Results: EKG: interpreted by ERMD (Left axis. Low QRS precordial leads.), normal ST/T EKG shows: tachycardia, atrial fibrillation Procedures - Procedures Initial comment: Patient did have synchronized cardioversion at 50, 50, 75, 75 and then 150. 150 did convert patient to sinus rhythm. Pressure remains low. Patient started on Levophed. Amiodarone 150 was given. Amiodarone drip ordered. Patient was also given Versed prior to cardioversion. Medical Decision Making - Medical Decision Making Was pt. sent in by a medical professional or institution (DOUGLAS Aponte, CELL RELINER, urgent care, hospital, or skilled nursing...) When possible be specific @ -No Did you speak to anyone other than the patient for history (EMS, parent, family, police, friend...)? What history was obtained from this source @ -EMS helps provide history Did you review nursing and triage notes (agree or disagree)? Why? @ -I reviewed and agree with nursing and triage notes Were old charts reviewed (outside hosp., previous admission, EMS record, old EKG, old radiological studies, urgent care reports/EKG's, skilled nursing records)? Report findings @ -Previous admission reviewed Differential Diagnosis (chest pain, altered mental status, abdominal pain women, abdominal pain men, vaginal bleeding, weakness, fever, dyspnea, syncope, headache, dizziness, GI bleed, back pain, seizure, CVA, palpatations, mental health, musculoskeletal)? @ -Differential Palpitations Ventricular arrhythmias, atrial arrhythmias, myocardial infarction, anemia, thyrotoxicosis, electrolyte imbalance, hypokalemia, pulmonary embolism, pulmon naz disease, drugs, alcohol, anxiety, stress.... This is not meant to be an all-inclusive list. EKG interpreted by me (3pts min.). @ -As above X-rays interpreted by me (1pt min.). @ -Chest x-ray shows cardiomegaly CT interpreted by me (1pt min.). @ -None done U/S interpreted by me (1pt. min.). @ -None done What testing was considered but not performed or refused? (CT, X-rays, U/S, labs)? Why? @ -None What meds were considered but not given or refused? Why? @ -None Did you discuss the management of the patient with other professionals (professionals i.e. , PA, CELL RELINER, lab, RT, psych nurse, social services assistant, ceramics machine operator, teacher, chief data officer, case worker)? Give summary @ -Case was discussed with Dr. Edwards. Case also discussed with Dr. Godfrey, who will admit covering hospital call. Dr. Rene lisa Was smoking cessation discussed for >3mins.? @ -No Was critical care preformed (if so, how long)? @ -45 minutes critical care time Were there social determinants of health that impacted care today? How? (Homelessness, low income, unemployed, alcoholism, drug addiction, transportation, low edu. Level, literacy, decrease access to med. care, long-term, rehab)? @ -No Was there de-escalation of care discussed even if they declined (Discuss DNR or withdrawal of care, Hospice)? DNR status @ -No What co-morbidities impacted this encounter? (DM, HTN, Smoking, COPD, CAD, Cancer, CVA, ARF, Chemo, Hep., AIDS, mental health diagnosis, sleep apnea, morbid obesity)? @ -None Was patient admitted / discharged? Hospital course, mention meds given and route, prescriptions, significant lab abnormalities, going to OR and other pertinent info. @ -Patient presents A-fib RVR and hypotension. Patient cardioverted x 5. Patient did have conversion to sinus rhythm. Patient remains hypotensive. Patient is on amiodarone drip and Levophed drip. Patient given 2 L saline. Patient will be admitted to ICU Undiagnosed new problem with uncertain prognosis? @ -No Drug Therapy requiring intensive monitoring for toxicity (Heparin, Nitro, Insulin, Cardizem)? @ -Patient on amiodarone drip and Levophed drip Were any procedures done? @ -No Diagnosis/symptom? @ -A-fib with RVR, hypotension Acute, or Chronic, or Acute on Chronic? @ -Acute on chronic, acute Uncomplicated (without systemic symptoms) or Complicated (systemic symptoms)? @ -Default Side effects of treatment? @ -No Exacerbation, Progression, or Severe Exacerbation? @ -No Poses a threat to life or bodily function? How? (Chest pain, [place], [place], pneumonia, PE, COPD, DKA, ARF, appy, cholecystitis, CVA, Diverticulitis, Homicidal, Suicidal, threat to staff... and all critical care pts) @ -No - Lab Data Result diagrams: 04/27/23 12:31 Lab Results 04/27/23 04/27/23 Range/Units 12:31 12:31 WBC 9.6 (3.8-10.6) k/uL RBC 4.14 L (4.30-5.90) m/uL Hgb 12.8 L (13.0-17.5) gm/dL Hct 39.9 (39.0-53.0) % MCV 96.3 (80.0-100.0) fL MCH 30.9 (25.0-35.0) pg MCHC 32.1 (31.0-37.0) g/dL RDW 13.8 (11.5-15.5) % Plt Count 272 (150-450) k/uL MPV 9.3 Neutrophils % 89 % Lymphocytes % 6 % Monocytes % 4 % Eosinophils % 0 % Basophils % 0 % Neutrophils # 8.5 H (1.3-7.7) k/uL Lymphocytes # 0.6 L (1.0-4.8) k/uL Monocytes # 0.3 (0-1.0) k/uL Eosinophils # 0.0 (0-0.7) k/uL Basophils # 0.0 (0-0.2) k/uL PT 11.7 (10.0-12.5) sec INR 1.1 (<1.2) APTT 27.5 (22.0-30.0) sec Critical Care Time Critical Care Time: Yes Total Critical Care Time: 45 Disposition Clinical Impression: Atrial fibrillation with RVR, Hypotension Disposition: ADMITTED IP TO THIS HOSP Condition: Critical Is patient prescribed a controlled substance at d/c from ED?: No Referrals: Hayden Davis DO [Primary Care Provider] - 1-2 days Time of Disposition: 13:10
[2023-04-27 12:56] LABS: Basophils % (A) 0 %; Eosinophils % (A) 0 %; HCT 39.9 % (39.0-53.0); HGB 12.8 gm/dL (13.0-17.5); Lymphocytes # (A) 0.6 k/uL (1.0-4.8); Lymphocytes % (A) 6 %; MCH 30.9 pg (25.0-35.0); MCHC 32.1 g/dL (31.0-37.0); MCV 96.3 fL (80.0-100.0); Mean Platelet Volume 9.3; Monocytes # (A) 0.3 k/uL (0-1.0); Monocytes % (A) 4 %; Neutrophils # (A) 8.5 k/uL (1.3-7.7); Neutrophils % (A) 89 %; Platelet Count 272 k/uL (150-450); RBC 4.14 m/uL (4.30-5.90); RDW 13.8 % (11.5-15.5); WBC 9.6 k/uL (3.8-10.6)
--- NOTE | 2023-04-27 12:56 | XR ---
EXAMINATION TYPE: XR chest 1V portable DATE OF EXAM: 04/27/2023 12:49 PM CLINICAL INDICATION:Male, 52 years old with history of dysrhythmia; COMPARISON: Chest radiographs from 07/12/2022 TECHNIQUE: XR chest 1V portable Frontal view of the chest. FINDINGS: Lungs/Pleura: There is no evidence of pleural effusion, focal consolidation, or pneumothorax. Pulmonary vascularity: Unremarkable. Heart/mediastinum: Cardiomediastinal silhouette is unremarkable. Musculoskeletal: No acute osseous pathology. IMPRESSION: No acute cardiopulmonary disease/process.
[2023-04-27 13:03] LABS: INR 1.1 (<1.2); Partial Thromboplastin Time 27.5 sec (22.0-30.0); Prothrombin Time 11.7 sec (10.0-12.5)
[2023-04-27] MEDS ORDERED: NALOXONE 0.4 MG/ML 1 ML VIAL IV PRN (13:10)
[2023-04-27 13:17] LABS: ALT 110 U/L (4-49); AST 133 U/L (17-59); African American GFR (CKD) 52 (>60 ml/min/1.73 sqM); Albumin 2.9 g/dL (3.5-5.0); Alkaline Phosphatase 71 U/L (38-126); Anion Gap 11 mmol/L; Blood Urea Nitrogen 48 mg/dL (9-20); Calcium 8.5 mg/dL (8.4-10.2); Carbon Dioxide 18 mmol/L (22-30); Chloride 105 mmol/L (98-107); Glucose 122 mg/dL (74-99); Non-African American GFR(CKD) 45 (>60 ml/min/1.73 sqM); Sodium 134 mmol/L (137-145); Total Bilirubin 1.2 mg/dL (0.2-1.3); Total Protein 5.9 g/dL (6.3-8.2)
[2023-04-27 13:22] LABS: Magnesium 1.9 mg/dL (1.6-2.3); Potassium 4.4 mmol/L (3.5-5.1)
[2023-04-27] MEDS: SODIUM CHLORIDE 0.9% 1,000 ML IV SCH (13:22)
[2023-04-27] MEDS: AMIODARONE 360 MG in DEXTROSE 5% IN WATER 200 ML IV ONE (13:22)
--- NOTE | 2023-04-27 14:08 | P.HPIM ---
History of Present Illness H&P Date: 04/27/23 History of present illness; patient is a 52-year-old gentleman past medical history significant for recently diagnosed A-fib on Eliquis, hypertension, coronary disease, hyperlipidemia presented to the ER for palpitations. Patient states that he was all right this morning when after waking up he was went to the garage to get some stuff, on coming back to the house he felt lightheaded and dizzy. Patient felt his heart was beating very fast, was complaining of shortness of breath at that time as well. There was no complaint of chest pain. Denies any nausea, vomiting or abdominal pain. Patient stated that recently he was diagnosed with A-fib and was placed on Eliquis, normally follows up with Dr. Bustos. Because the symptoms, patient called EMS and he was brought to the ER Initial lab work done in the ER showed WBC 9.6, hemoglobin 12.8, platelet count 272, sodium 134, potassium 4.4, BUN 40, creatinine 1.70 AST 133, ALT 110 Chest x-ray done in the ER showed no acute cardiopulmonary process Patient was found to be in A-fib with RVR and was hypotensive, underwent synchronized cardioversion x 5 at 50, 50, 75, 75 and then 150 J. Patient admitted to internal medicine service REVIEW OF SYSTEMS: CONSTITUTIONAL: No fever, no malaise, no fatigue. HEENT: No recent visual problems or hearing problems. Denied any sore throat. CARDIOVASCULAR: As mentioned above PULMONARY: As mentioned above GASTROINTESTINAL: No diarrhea, no nausea, no vomiting, no abdominal pain. NEUROLOGICAL: No headaches, no weakness, no numbness. HEMATOLOGICAL: Denies any bleeding or petechiae. GENITOURINARY: Denies any burning micturition, frequency, or urgency. MUSCULOSKELETAL/RHEUMATOLOGICAL: Denies any joint pain, swelling, or any muscle pain. ENDOCRINE: Denies any polyuria or polydipsia. The rest of the 14-point review of systems is negative. PHYSICAL EXAMINATION: GENERAL: The patient is alert and oriented x3, not in any acute distress. Well developed, well nourished. HEENT: Pupils are round and equally reacting to light. EOMI. No scleral icterus. No conjunctival pallor. Normocephalic, atraumatic. No pharyngeal erythema. No thyromegaly. CARDIOVASCULAR: S1 and S2 present. No murmurs, rubs, or gallops. Irregular in rate and rhythm PULMONARY: Chest is clear to auscultation, no wheezing or crackles. ABDOMEN: Soft, nontender, nondistended, normoactive bowel sounds. No palpable o rganomegaly. MUSCULOSKELETAL: No joint swelling or deformity. EXTREMITIES: No cyanosis, clubbing, or pedal edema. NEUROLOGICAL: Gross neurological examination did not reveal any focal deficits. SKIN: No rashes. Assessment and plan A-fib with RVR, s/p cardioversion Cardiogenic shock TENZIN Acute transaminitis Hypertension Hyperlipidemia History of coronary artery disease History of V. tach Obesity with BMI of 45.7 Monitor vital signs Monitor CBC Monitor CMP Continue telemetry monitoring Trend troponin. Ordered 2D echo Continue amiodarone drip Patient started on Levophed for hypotension Resume Eliquis Resume Toprol Cardiology consulted ICU consulted Labs and medication were reviewed.. Continue same treatment. Continue with symptomatic treatment. Resume home medication. Monitor labs and vitals. DVT and GI prophylaxis. Further recommendations as per clinical course of the patient Dictation was produced using [employer] dictation software. please excuse any grammatical, word or spelling errors. Past Medical History Past Medical History: Hypertension Additional Past Medical History / Comment(s): prediabetes, Obesity History of Any Multi-Drug Resistant Organisms: None Reported Past Surgical History: Heart Catheterization With Stent Additional Past Surgical History / Comment(s): back Past Psychological History: No Psychological Hx Reported Smoking Status: Never smoker Past Alcohol Use History: None Reported Past Drug Use History: None Reported - Past Family History Father Family Medical History: Cancer, Diabetes Mellitus Mother Family Medical History: COPD Medications and Allergies Home Medications Medication Instructions Recorded Confirmed Type Aspirin 81 mg PO DAILY tab 07/15/22 04/14/23 Rx Losartan Potassium [Cozaar] 100 mg PO DAILY 08/12/22 04/14/23 History Nitroglycerin 0.4 mg SL Q5M PRN 08/12/22 04/14/23 History Atorvastatin [Lipitor] 80 mg PO QAM 04/09/23 04/14/23 History Apixaban [Eliquis] 5 mg PO BID 04/27/23 04/27/23 History Ciprofloxacin HCl [Cipro] 500 mg PO BID 04/27/23 04/27/23 History Metoprolol Tartrate [Lopressor] 25 mg PO HS 04/27/23 04/27/23 History Metoprolol Tartrate [Lopressor] 50 mg PO DAILY 04/27/23 04/27/23 History Allergies Allergy/AdvReac Type Severity Reaction Status Date / Time phenobarbital AdvReac hyperactivi Verified 04/27/23 13:54 ty Physical Exam Vitals: Vital Signs Temp Pulse Pulse Resp BP Pulse Ox 04/27/23 13:32 90 18 69/46 96 04/27/23 13:02 84 18 80/52 04/27/23 13:00 81 31 H 85/53 04/27/23 12:30 88 28 H 71/37 04/27/23 12:00 206 H 12 77/55 97 04/27/23 11:51 203 H 210 H 8 L 106/96 100 04/27/23 11:39 98.1 F 195 H 20 106/96 100 Intake and Output 04/26/23 04/27/23 04/27/23 22:59 06:59 14:59 Intake Total 11.904 Balance 11.904 Intake: Intake, IV Titration 11.904 Amount Norepinephrine 4 mg In 11.904 Sodium Chloride 0.9% 250 ml @ 0.03 MCG/KG/MIN 17. 005 mls/hr IV .[id number] ONE Rx#:[id number] Other: Weight 148.778 kg Results CBC & Chem 7: 04/27/23 12:31 04/27/23 12:31 Labs: Abnormal Lab Results - Last 24 Hours (Table) 04/27/23 04/27/23 Range/Units 12:31 12:31 RBC 4.14 L (4.30-5.90) m/uL Hgb 12.8 L (13.0-17.5) gm/dL Neutrophils # 8.5 H (1.3-7.7) k/uL Lymphocytes # 0.6 L (1.0-4.8) k/uL Sodium 134 L (137-145) mmol/L Carbon Dioxide 18 L (22-30) mmol/L BUN 48 H (9-20) mg/dL Creatinine 1.70 H (0.66-1.25) mg/dL Glucose 122 H (74-99) mg/dL AST 133 H (17-59) U/L ALT 110 H (4-49) U/L Total Protein 5.9 L (6.3-8.2) g/dL Albumin 2.9 L (3.5-5.0) g/dL
[2023-04-27] MEDS ORDERED: ATORVASTATIN 80 MG TAB PO SCH (14:15)
--- NOTE | 2023-04-27 14:25 | P.CRDCN ---
History of Present Illness Consult date: 04/27/23 Consult reason: atrial fibrillation (With RVR) History of present illness: History of present illness: This is a 52-year-old male patient of Dr. DAVIDE Vazquez with past medical history of coronary disease with stenting of the LAD 11/01/2022 with there was plaque rupture good result, morbid obesity, obstructive sleep, paroxysmal atrial fibrillation on Eliquis Hyperlipidemia, hypertension, kidney stones. We have been asked to evaluate the patient for A-fib with RVR. Patient presented to the hospital due to palpitations. This was sudden onset patient did not feel well in general with shortness of breath and lightheadedness. Ventricular rate was initially running in the low 200s and blood pressure was 206/96 dropped down to 71/37. Patient u nderwent synchronized cardioversion at 50, 75 x 2 and 150 J which finally converted him to sinus rhythm. Because of low blood pressure, patient was started on Levophed and he was also started on amiodarone 150 mg given and drip started. Patient was given Versed prior to cardioversion. Patient is also status post 2 L of IV fluids. Patient had a recent hospitalization on 04/15 which time he was seen by cardiology for new onset atrial fibrillation. Patient also was status post percutaneous nephrolithotomy and anticoagulation was placed on hold due to this and resumed on 04/22. Patient had follow-up in the office on 04/21 at which time he was to schedule a sleep study with his PCP. Brilinta was discontinued on the office visit. Helping out with what he needs all all symptoms okay EKG A-fib with RVR, #2 sinus rhythm Chest x-ray: No acute process WBC 9.6, hemoglobin 12.8, platelet count 272. INR 1.1. Sodium 134, potassium 4.4, BUN 48 creatinine 1.7. Blood sugar 122. AST 133, ALT 110, alkaline phosphatase 71. TSH 1.72. Home cardiac medications: Eliquis 5 mg twice daily, aspirin 81 mg daily, atorvastatin 80 mg daily, losartan 100 mg daily, Lopressor 50 mg in the morning and 25 mg in the evening, Nitrostat as needed. Cardiac catheterization 07/13/2022 revealed mildly elevated filling pressures, no gradient across the valve, no disease in RCA, LM or ramus, distal RCA with some dilation suggestive of inflammatory disease. LAD with 80% plaque rupture status post PCI of the LAD. Echocardiogram performed 08/14/2022 revealed EF of 55%, mild mitral tricuspid regurgitation, mild LVH. No pulmonary hypertension. Exercise tolerance test performed 08/25/2022 walked for 2 and half minutes with heart rate 132, rare isolated PVCs, no angina, poor conditioning noted. Inconclusive stress test because of an adequate chronotropic response. Review Of Systems: At the time of my exam: CONSTITUTIONAL: Denies fever or chills. HEENT: Denies blurred vision, vision changes, or eye pain. Denies hemoptysis CARDIOVASCULAR: Denies chest pain. Denies orthopnea. Denies PND. + palpitations + lightheadedness RESPIRATORY: + shortness of breath. GASTROINTESTINAL: Denies abdominal pain. Denies nausea or vomiting. HEMATOLOGIC: Denies bleeding disorders. GENITOURINARY: Denies any blood in urine. SKIN: Denies pruitis. Denies rash. Physical examination: Gen: This is a morbidly obese 52-year-old male. He appears to be in no acute distress VS: reviewed HEENT: Head is atraumatic, normocephalic. Pupils equal, round. Sclerae is anicteric. NECK: Supple. No JVD. LUNGS: Clear to auscultation. No wheezes or rhonchi. No intercostal retractions. HEART: Regular rate and rhythm. No murmur. ABDOMEN: Soft No tenderness. EXTREMITIES: No pedal edema. No calf tenderness. NEUROLOGICAL: Patient is awake, alert and oriented x3. Assessment: A-fib with RVR status post synchronized cardioversion, currently in sinus rhythm Coronary artery disease with previous stenting of the LAD Obstructive sleep apnea Paroxysmal atrial fibrillation on Eliquis Hyperlipidemia Hypertension Kidney stones Morbid obesity with BMI of 45 Plan: Continue patient's home cardiac medications Start patient on amiodarone drip Continue Lopressor 50 mg in morning and 25 mg in the evening Obtain 2-D echocardiogram and Doppler study to assess cardiac structure and function Further recommendations to follow based upon clinical course Thank you kindly for this consultation. Nurse practitioner note has been reviewed, I agree with documented findings and plan of care. Patient was seen and examined. Past Medical History Past Medical History: Hypertension Additional Past Medical History / Comment(s): prediabetes, Obesity History of Any Multi-Drug Resistant Organisms: None Reported Past Surgical History: Heart Catheterization With Stent Additional Past Surgical History / Comment(s): back Past Psychological History: No Psychological Hx Reported Smoking Status: Never smoker Past Alcohol Use History: None Reported Past Drug Use History: None Reported - Past Family History Father Family Medical History: Cancer, Diabetes Mellitus Mother Family Medical History: COPD Medications and Allergies Home Medications Medication Instructions Recorded Confirmed Type Aspirin 81 mg PO DAILY tab 07/15/22 04/27/23 Rx Losartan Potassium [Cozaar] 100 mg PO DAILY 08/12/22 04/27/23 History Nitroglycerin 0.4 mg SL Q5M PRN 08/12/22 04/27/23 History Atorvastatin [Lipitor] 80 mg PO DIRECTED 04/09/23 04/27/23 History Apixaban [Eliquis] 5 mg PO BID 04/27/23 04/27/23 History Ciprofloxacin HCl [Cipro] 500 mg PO BID 04/27/23 04/27/23 History Metoprolol Tartrate [Lopressor] 25 mg PO HS 04/27/23 04/27/23 History Metoprolol Tartrate [Lopressor] 50 mg PO DAILY 04/27/23 04/27/23 History Allergies Allergy/AdvReac Type Severity Reaction Status Date / Time phenobarbital AdvReac hyperactivi Verified 04/27/23 13:54 ty Physical Exam Vitals: Vital Signs Temp Pulse Pulse Resp BP Pulse Ox 04/27/23 11:51 210 H 04/27/23 11:39 98.1 F 195 H 20 106/96 100 Intake and Output 04/26/23 04/27/23 04/27/23 22:59 06:59 14:59 Other: Weight 148.778 kg Results 04/27/23 12:31 04/27/23 12:31 Current Medications Generic Name Dose Route Start Last Admin Trade Name Freq PRN Reason Stop Dose Admin Amiodarone HCl 150 mg/ 103 mls @ 618 mls/hr 04/27/23 12:30 04/27/23 12:23 Dextrose/Water IV 04/27/23 12:39 618 mls/hr .Q10M ONE Administration Intake and Output 04/26/23 04/27/23 04/27/23 22:59 06:59 14:59 Other: Weight 148.778 kg Patient Weight 04/28/23 06:59 Weight 148.778 kg
[2023-04-27 14:38] LABS: Glucose,Whole Blood 93 mg/dL (70-110)
--- NOTE | 2023-04-27 15:26 | P.CNPUL ---
History of Present Illness Consult date: 04/27/23 Requesting physician: Krishna Sanchez Reason for consult: other (Critical care management) Chief complaint: Dizziness, shortness of breath History of present illness: This is a very pleasant 52-year-old male patient with a history of morbid obesity, suspected obstructive sleep apnea, pretension, hyperlipidemia, coronary artery disease and previous stent placement, atrial fibrillation noted just 2 weeks ago during a urology procedure for kidney stones. He had been on metoprolol and Eliquis. Following his kidney stones he did develop a urinary tract infection was initiated on Cipro to be taken for 10 days which she started yesterday. Today while he was out walking to his garage he became quite lightheaded and dizzy and short of breath. He presented here to the emergency room for the same. He was found to be in atrial fibrillation with a rapid ventricular response. He had undergone cardioversion x 5 with subsequent return to normal sinus rhythm. He was initiated on amiodarone at 1 mg/min. He was given 3 L of fluid resuscitation for hypotension and is on normal saline at 130 MLS per hour. He also was requiring some norepinephrine currently at 0.04 mcg/kg/min and admitted to the intensive care unit. He is seen today in consultation. He is awake and alert in no acute distress. He is maintaining O2 saturations in the high 90s on 2 L/min per nasal cannula. He denies any worsening shortness of breath, cough or congestion. He denies any chest pain or palpitations. He is currently remaining in sinus rhythm. Chest x-ray reveals no acute cardiopulmonary process. White count 9.6. Hemoglobin 12.8. Platelets 272. Sodium 134. Potassium 4.4. Bicarb 18. BUN 48. Creatinine 1.70. Glucose 122. AST 133. ALT 110. Troponin negative x 1. TSH 1.72. Free T4 2.0. Eliquis has been continued. Review of Systems REVIEW OF SYSTEMS: CONSTITUTIONAL: Positive for dizziness and lightheadedness, positive for controlled weight loss. EYES: Denies change in vision. EARS, NOSE, MOUTH, THROAT: Denies headaches, denies sore throat. CARDIOVASCULAR: Positive for palpitations with shortness of breath and dizziness, no syncopal episodes. RESPIRATORY: Positive for shortness of breath, no cough, congestion or hemoptysis. GASTROINTESTINAL: Denies change in appetite, denies abdominal pain GENITOURINARY: Denies hematuria, denies infections. MUSKULOSKELETAL: Denies pain, denies swelling. INTEGUMENTARY: Denies rash, denies eczema. NEUROLOGICAL: Denies recent memory loss, no recent seizure activity. PSYCHIATRIC: Denies anxiety, denies depression. HEMATOLOGIC/LYMPHATIC: Denies anemia, denies enlarged lymph nodes. Past Medical History Past Medical History: Hypertension Additional Past Medical History / Comment(s): prediabetes, Obesity History of Any Multi-Drug Resistant Organisms: None Reported Past Surgical History: Heart Catheterization With Stent Additional Past Surgical History / Comment(s): back Past Psychological History: No Psychological Hx Reported Smoking Status: Never smoker Past Alcohol Use History: None Reported Past Drug Use History: None Reported - Past Family History Father Family Medical History: Cancer, Diabetes Mellitus Mother Family Medical History: COPD Medications and Allergies Home Medications Medication Instructions Recorded Confirmed Type Aspirin 81 mg PO DAILY tab 07/15/22 04/27/23 Rx Losartan Potassium [Cozaar] 100 mg PO DAILY 08/12/22 04/27/23 History Nitroglycerin 0.4 mg SL Q5M PRN 08/12/22 04/27/23 History Atorvastatin [Lipitor] 80 mg PO DIRECTED 04/09/23 04/27/23 History Apixaban [Eliquis] 5 mg PO BID 04/27/23 04/27/23 History Ciprofloxacin HCl [Cipro] 500 mg PO BID 04/27/23 04/27/23 History Metoprolol Tartrate [Lopressor] 25 mg PO HS 04/27/23 04/27/23 History Metoprolol Tartrate [Lopressor] 50 mg PO DAILY 04/27/23 04/27/23 History Allergies Allergy/AdvReac Type Severity Reaction Status Date / Time phenobarbital AdvReac hyperactivi Verified 04/27/23 13:54 ty Physical Exam Vitals: Vital Signs Temp Pulse Pulse Resp BP Pulse Ox 04/27/23 14:36 98.1 F 87 20 104/59 98 04/27/23 13:58 98.1 F 87 18 93/64 98 04/27/23 13:32 90 18 69/46 96 04/27/23 13:02 84 18 80/52 04/27/23 13:00 81 31 H 85/53 04/27/23 12:30 88 28 H 71/37 04/27/23 12:00 206 H 12 77/55 97 04/27/23 11:51 203 H 210 H 8 L 106/96 100 04/27/23 11:39 98.1 F 195 H 20 106/96 100 Intake and Output 04/27/23 04/27/23 04/27/23 06:59 14:59 22:59 Intake Total 48.560 Balance 48.560 Intake: Intake, IV Titration 48.560 Amount Norepinephrine 4 mg In 48.560 Sodium Chloride 0.9% 250 ml @ 0.03 MCG/KG/MIN 17. 005 mls/hr IV .[id number] ONE Rx#:[id number] Other: Weight 148.778 kg GENERAL EXAM: Alert, very pleasant, morbidly obese, 52-year-old male, on 2 L nasal cannula, comfortable in no apparent distress. HEAD: Normocephalic. EYES: Normal reaction of pupils, equal size. NOSE: Clear with pink turbinates. THROAT: No erythema or exudates. NECK: No masses, no JVD. CHEST: No chest wall deformity. LUNGS: Equal air entry with no crackles, wheeze, rhonchi or dullness. CVS: S1 and S2 normal with no audible murmur, regular rhythm. ABDOMEN: No hepatosplenomegaly, normal bowel sounds, no guarding or rigidity. SPINE: No scoliosis or deformity SKIN: No rashes CENTRAL NERVOUS SYSTEM: No focal deficits, tone is normal in all 4 extremities. EXTREMITIES: There is no peripheral edema. No clubbing, no cyanosis. Peripheral pulses are intact. Results - Laboratory Findings CBC and BMP: 04/27/23 12:31 04/27/23 12:31 PT/INR, D-dimer PT 11.7 sec (10.0-12.5) 04/27/23 12:31 INR 1.1 (<1.2) 04/27/23 12:31 Abnormal lab findings: Abnormal Labs 04/27/23 04/27/23 12:31 12:31 RBC 4.14 L Hgb 12.8 L Neutrophils # 8.5 H Lymphocytes # 0.6 L Sodium 134 L Carbon Dioxide 18 L BUN 48 H Creatinine 1.70 H Glucose 122 H AST 133 H ALT 110 H Total Protein 5.9 L Albumin 2.9 L - Diagnostic Findings Chest x-ray: image reviewed Assessment and Plan Assessment: Atrial fibrillation with a rapid ventricular response requiring cardioversion x 5. Currently in sinus rhythm. Hypotension secondary to above requiring fluid resuscitation and norepinephrine New onset atrial fibrillation and 2 weeks ago during a urology procedure. Initiated on beta-blockers and Eliquis Urinary tract infection, initiated on Cipro yesterday History of significant left-sided kidney stones requiring left percutaneous nephrostomy access and tube placement with subsequent removal within the past 2 weeks Coronary artery disease with previous stent placement Morbid obesity with a BMI of 46 kg/m, has lost over 100 pounds in the past year Suspected obstructive sleep apnea, planning for sleep study in the outpatient setting Hypertension Hyperlipidemia Plan: The patient was seen and evaluated Chest x-ray, labs and medications reviewed Titrate down and possibly off the norepinephrine Continue amiodarone drip Anticoagulated with Eliquis Currently in sinus rhythm Titrate down the FiO2 as tolerated Continue to monitor closely here in the ICU another 24 hours We will continue to follow and make further recommendations based on his clinical status I have personally seen and examined the patient, performed the documentation and the assessment and plan as written. Number of minutes spent on the visit: 20.
[2023-04-27] MEDS: FUROSEMIDE 10 MG/ML 4 ML VIAL IV STA (18:31)
[2023-04-27] MEDS: AMIODARONE 450 MG in DEXTROSE 5% IN WATER 250 ML IV SCH (18:34)
[2023-04-27 19:33] LABS: Appearance,Urine Cloudy (Clear); Bacteria,Urine Rare /hpf; Bilirubin,Urine Negative (Negative); Blood,Urine Moderate (Negative); Color,Urine Yellow; Glucose,Urine (UA) Negative (Negative); Hyaline Casts,Urine 1 /lpf (0-2); Ketones,Urine Negative (Negative); Leukocyte Esterase,Urine Large (Negative); Mucus,Urine Rare /hpf; Nitrite,Urine Negative (Negative); PH, Urine 5.5 (5.0-8.0); Protein,Urine 1+ (Negative); RBC,Urine 18 /hpf (0-5); Specific Gravity,Urine 1.011 (1.001-1.035); Urobilinogen,Urine <2.0 mg/dL (<2.0); WBC,Urine 29 /hpf (0-5)
[2023-04-27] MEDS: APIXABAN 5 MG TAB PO SCH (20:29)
[2023-04-27] MEDS: METOPROLOL TARTRATE 25 MG TAB PO SCH (20:30)
[2023-04-28] MEDS: NOREPINEPHRINE 4 MG in SODIUM CHLORIDE 0.9% 250 ML IV SCH (04:00)
[2023-04-28 06:18] LABS: Basophils % (A) 0 %; Eosinophils % (A) 1 %; HCT 32.8 % (39.0-53.0); HGB 10.5 gm/dL (13.0-17.5); Hypochromasia Slight; Lymphocytes # (A) 0.8 k/uL (1.0-4.8); Lymphocytes % (A) 13 %; MCH 31.4 pg (25.0-35.0); MCV 98.1 fL (80.0-100.0); Mean Platelet Volume 9.3; Monocytes # (A) 0.3 k/uL (0-1.0); Monocytes % (A) 4 %; Neutrophils # (A) 4.5 k/uL (1.3-7.7); Neutrophils % (A) 79 %; Platelet Count 225 k/uL (150-450); RBC 3.34 m/uL (4.30-5.90); RDW 13.8 % (11.5-15.5); WBC 5.6 k/uL (3.8-10.6)
[2023-04-28 06:29] LABS: ALT 183 U/L (4-49); AST 219 U/L (17-59); African American GFR (CKD) 60 (>60 ml/min/1.73 sqM); Albumin 2.1 g/dL (3.5-5.0); Alkaline Phosphatase 59 U/L (38-126); Anion Gap 8 mmol/L; Blood Urea Nitrogen 49 mg/dL (9-20); Calcium 7.6 mg/dL (8.4-10.2); Carbon Dioxide 18 mmol/L (22-30); Chloride 109 mmol/L (98-107); Glucose 98 mg/dL (74-99); Non-African American GFR(CKD) 52 (>60 ml/min/1.73 sqM); Potassium 3.7 mmol/L (3.5-5.1); Sodium 135 mmol/L (137-145); Total Bilirubin 0.7 mg/dL (0.2-1.3); Total Protein 4.6 g/dL (6.3-8.2)
[2023-04-28] MEDS: SODIUM CHLORIDE 0.9% 1,000 ML IV ONE (10:07)
[2023-04-28] MEDS: ASPIRIN 81 MG PO SCH (10:08)
[2023-04-28] MEDS: AMIODARONE 200 MG TAB PO SCH (10:08)
[2023-04-28] MEDS: ATORVASTATIN 80 MG TAB PO SCH (10:08)
[2023-04-28] MEDS: PANTOPRAZOLE 40 MG/10 ML VIAL IV SCH (10:08)
--- NOTE | 2023-04-28 10:32 | P.PN ---
Subjective Progress Note Date: 04/28/23 Principal diagnosis: Atrial fibrillation with RVR and hypotension This is a very pleasant 52-year-old male patient with a history of morbid obesity, suspected obstructive sleep apnea, pretension, hyperlipidemia, coronary artery disease and previous stent placement, atrial fibrillation noted just 2 weeks ago during a urology procedure for kidney stones. He had been on metoprolol and Eliquis. Following his kidney stones he did develop a urinary tract infection was initiated on Cipro to be taken for 10 days which she started yesterday. Today while he was out walking to his garage he became quite lightheaded and dizzy and short of breath. He presented here to the emergency room for the same. He was found to be in atrial fibrillation with a rapid ventricular response. He had undergone cardioversion x 5 with subsequent return to normal sinus rhythm. He was initiated on amiodarone at 1 mg/min. He was given 3 L of fluid resuscitation for hypotension and is on normal saline at 130 MLS per hour. He also was requiring some norepinephrine currently at 0.04 mcg/kg/min and admitted to the intensive care unit. He is seen today in consultation. He is awake and alert in no acute distress. He is maintaining O2 saturations in the high 90s on 2 L/min per nasal cannula. He denies any worsening shortness of breath, cough or congestion. He denies any chest pain or palpitations. He is currently remaining in sinus rhythm. Chest x-ray reveals no acute cardiopulmonary process. White count 9.6. Hemoglobin 12.8. Platelets 272. Sodium 134. Potassium 4.4. Bicarb 18. BUN 48. Creatinine 1.70. Glucose 122. AST 133. ALT 110. Troponin negative x 1. TSH 1.72. Free T4 2.0. Eliquis has been continued. Reevaluated today on 04/28/2023, remains in the ICU, he is off amiodarone, still requiring 0.03 mcg/kg/min of norepinephrine, IV fluid is running at 100 cc/h. Patient is on room air, he seems to be quite comfortable, not in any distress, last night his urine output was very poor, I was notified about this patient, and I recommended 1 dose of Lasix 40 mg which was given and the patient responded well to diuretics. Patient is also on Rocephin for presumptive urinary tract infection. Overall the patient is doing great, he is in sinus rhythm, and not in any distress, amiodarone was discontinued by cardiology and will likely go on oral amiodarone today. WBC count is 5.6 hemoglobin 10.5 basic metabolic profile is normal BUN is 49 creatinine 1.52 improved compared to creatinine of 1.70 yesterday Objective - Vital Signs Vital signs: Vital Signs Temp 98.3 F 04/28/23 04:00 Pulse 66 04/28/23 07:00 Resp 17 04/28/23 07:00 BP 107/64 04/28/23 07:00 Pulse Ox 97 04/28/23 07:00 FiO2 Intake & Output 04/27/23 04/28/23 04/28/23 18:59 06:59 18:59 Intake Total 646.141 9338.783 100 Output Total 0 1200 0 Balance 521.329 248.783 100 Weight 148.778 kg 146.1 kg Intake: IV 1100 100 Sodium Chloride 0.9% 1, 1100 100 000 ml @ 100 mls/hr IV . Q10H [facility] Rx#:[id number] Intake, IV Titration 521.329 348.783 Amount Amiodarone 450 mg In 66.112 Dextrose 5% in Water 250 ml @ 0.5 MG/MIN 16.667 mls/hr IV .Q15H [facility] Rx#: [id number] Norepinephrine 4 mg In 71.329 182.671 Sodium Chloride 0.9% 250 ml @ 0.03 MCG/KG/MIN 17. 005 mls/hr IV .[id number] ONE Rx#:[id number] Sodium Chloride 0.9% 1, 400 100 000 ml @ 100 mls/hr IV . Q10H [facility] Rx#:[id number] cefTRIAXone 1 gm In 50 Sodium Chloride 0.9% 50 ml @ 100 mls/hr IVPB Q24H [facility] Rx#:[id number] Output: Urine 0 1200 0 Other: Voiding Method Urinal Urinal - Exam General: The patient is awake and alert, in no distress, and does not appear acutely ill. On room air Skin: Skin is warm and dry and no rashes or lesions are noted. Eye: Pupils are equal, round and reactive to light, extra-ocular movements are intact; there is normal conjunctiva bilaterally. Ears, nose, mouth and throat: There are moist mucous membranes and no oral lesions. Neck: The neck is supple, there is no tenderness or JVD. Cardiovascular: There is a regular rate and rhythm. No murmur, rub or gallop is appreciated. Respiratory: Clear throughout no crackles rhonchi or wheezes Gastrointestinal: Soft, non-distended, non-tender abdomen without masses or organomegaly noted. There is no rebound or guarding present. Bowel sounds are unremarkable. Back: There is no tenderness to palpation in the midline. There is no obvious deformity. Musculoskeletal: Normal ROM, no tenderness, There is no pedal edema. There is no calf tenderness or swelling. No cords were appreciated. Neurological: CN II-XII intact, Cranial nerves III through XII are intact. There are no obvious motor or sensory deficits. Coordination appears grossly intact. Speech is normal. Psychiatric: Cooperative, appropriate mood & affect, normal judgment. - Labs CBC & Chem 7: 04/28/23 05:46 04/28/23 05:46 Labs: Abnormal Lab Results - Last 24 Hours (Table) 04/27/23 04/27/23 04/27/23 Range/Units 12:31 12:31 19:15 RBC 4.14 L (4.30-5.90) m/uL Hgb 12.8 L (13.0-17.5) gm/dL Hct (39.0-53.0) % Neutrophils # 8.5 H (1.3-7.7) k/uL Lymphocytes # 0.6 L (1.0-4.8) k/uL Sodium 134 L (137-145) mmol/L Chloride (98-107) mmol/L Carbon Dioxide 18 L (22-30) mmol/L BUN 48 H (9-20) mg/dL Creatinine 1.70 H (0.66-1.25) mg/dL Glucose 122 H (74-99) mg/dL Calcium (8.4-10.2) mg/dL AST 133 H (17-59) U/L ALT 110 H (4-49) U/L Total Protein 5.9 L (6.3-8.2) g/dL Albumin 2.9 L (3.5-5.0) g/dL Urine Protein 1+ H (Negative) Urine Blood Moderate H (Negative) Ur Leukocyte Esterase Large H (Negative) Urine RBC 18 H (0-5) /hpf Urine WBC 29 H (0-5) /hpf Urine Bacteria Rare H (None) /hpf Urine Mucus Rare H (None) /hpf 04/28/23 04/28/23 Range/Units 05:46 05:46 RBC 3.34 L (4.30-5.90) m/uL Hgb 10.5 L (13.0-17.5) gm/dL Hct 32.8 L (39.0-53.0) % Neutrophils # (1.3-7.7) k/uL Lymphocytes # 0.8 L (1.0-4.8) k/uL Sodium 135 L (137-145) mmol/L Chloride 109 H (98-107) mmol/L Carbon Dioxide 18 L (22-30) mmol/L BUN 49 H (9-20) mg/dL Creatinine 1.52 H (0.66-1.25) mg/dL Glucose (74-99) mg/dL Calcium 7.6 L (8.4-10.2) mg/dL AST 219 H (17-59) U/L ALT 183 H (4-49) U/L Total Protein 4.6 L (6.3-8.2) g/dL Albumin 2.1 L (3.5-5.0) g/dL Urine Protein (Negative) Urine Blood (Negative) Ur Leukocyte Esterase (Negative) Urine RBC (0-5) /hpf Urine WBC (0-5) /hpf Urine Bacteria (None) /hpf Urine Mucus (None) /hpf Assessment and Plan Assessment: Impression: Atrial fibrillation with RVR and hypotension requiring cardioversion x 5, also requiring norepinephrine upon admission. And amiodarone drip. Acute urinary tract infection, patient was on Cipro on outpatient basis but now he is on Rocephin cultures are pending. His last culture was positive for E. coli. History of left-sided staghorn calculus requiring percutaneous nephrostomy access and that was addressed by urology. Coronary artery disease and previous stent placement Benign essential hypertension Dyslipidemia Obesity with BMI of 46 kg/m Acute kidney injury, possible ATN Recommendation: Continue to monitor in the ICU Taper and discontinue norepinephrine today. Continue IV fluids at 100 cc/h Oral amiodarone to be addressed by cardiology Anticoagulation with Eliquis Continue to monitor I's and O's Once the patient is off norepinephrine could consider transferring the patient out of the ICU to cardiac floor. Continue to monitor renal status Will continue to follow Time with Patient: Less than 30
[2023-04-28] MEDS: METOPROLOL TARTRATE 25 MG TAB PO SCH (11:20)
--- NOTE | 2023-04-28 13:01 | P.PN ---
Subjective Progress Note Date: 04/28/23 patient is a 52-year-old gentleman past medical history significant for recently diagnosed A-fib on Eliquis, hypertension, coronary disease, hyperlipidemia presented to the ER for palpitations. Patient states that he was all right this morning when after waking up he was went to the garage to get some stuff, on coming back to the house he felt lightheaded and dizzy. Patient felt his heart was beating very fast, was complaining of shortness of breath at that time as well. There was no complaint of chest pain. Denies any nausea, vomiting or abdominal pain. Patient stated that recently he was diagnosed with A-fib and was placed on Eliquis, normally follows up with Dr. Bustos. Because the sympt oms, patient called EMS and he was brought to the ER Initial lab work done in the ER showed WBC 9.6, hemoglobin 12.8, platelet count 272, sodium 134, potassium 4.4, BUN 40, creatinine 1.70 AST 133, ALT 110 Chest x-ray done in the ER showed no acute cardiopulmonary process Patient was found to be in A-fib with RVR and was hypotensive, underwent synchronized cardioversion x 5 at 50, 50, 75, 75 and then 150 J. Patient admitted to internal medicine service 04/28. Patient seen and examined. Currently being monitored in ICU. Currently in sinus rhythm. Patient has been weaned off the Levophed, currently on oral amiodarone. States he feels much better REVIEW OF SYSTEMS: CONSTITUTIONAL: No fever, no malaise,. CARDIOVASCULAR: No chest pain, no palpitations, no syncope. PULMONARY: No shortness of breath, no cough, GASTROINTESTINAL: No diarrhea, no nausea, no vomiting, no abdominal pain. NEUROLOGICAL: No headaches, no weakness, PHYSICAL EXAMINATION: GENERAL: The patient is alert and oriented x3, not in any acute distress. Well developed, well nourished. HEENT: Pupils are round and equally reacting to light. EOMI. No scleral icterus. No conjunctival pallor. Normocephalic, atraumatic. No pharyngeal erythema. No thyromegaly. CARDIOVASCULAR: S1 and S2 present. No murmurs, rubs, or gallops. PULMONARY: Chest is clear to auscultation, no wheezing or crackles. ABDOMEN: Soft, nontender, nondistended, normoactive bowel sounds. No palpable organomegaly. MUSCULOSKELETAL: No joint swelling or deformity. EXTREMITIES: No cyanosis, clubbing, or pedal edema. NEUROLOGICAL: Gross neurological examination did not reveal any focal deficits. SKIN: No rashes. Assessment and plan A-fib with RVR, s/p cardioversion Hypotension secondary to A-fib with RVR TENZIN Acute transaminitis Urinary tract infection, initiated on Cipro outpatient History of significant left-sided kidney stones requiring left percutaneous nephrostomy access and tube placement with subsequent removal within the past 2 weeks Coronary artery disease with previous stent placement Suspected obstructive sleep apnea, planning for sleep study in the outpatient setting Hypertension Hyperlipidemia History of V. tach Obesity with BMI of 45.7 Monitor vital signs Monitor CBC Monitor CMP Continue telemetry monitoring Trend troponin. Ordered 2D echo Started oral amiodarone DC Levophed Continue IV Rocephin Continue Eliquis and Toprol Cardiology following ICU following Labs and medication were reviewed.. Continue same treatment. Continue with symptomatic treatment. Resume home medication. Monitor labs and vitals. DVT and GI prophylaxis. Further recommendations as per clinical course of the patient Dictation was produced using [employer] dictation software. please excuse any grammatical, word or spelling errors. Objective - Vital Signs Vital signs: Vital Signs Temp 98.3 F 04/28/23 04:00 Pulse 66 04/28/23 07:00 Resp 17 04/28/23 07:00 BP 107/64 04/28/23 07:00 Pulse Ox 97 04/28/23 07:00 FiO2 Intake & Output 04/27/23 04/28/23 04/28/23 18:59 06:59 18:59 Intake Total 701.032 0020.783 100 Output Total 0 1200 0 Balance 521.329 248.783 100 Weight 148.778 kg 146.1 kg Intake: IV 1100 100 Sodium Chloride 0.9% 1, 1100 100 000 ml @ 100 mls/hr IV . Q10H [facility] Rx#:[id number] Intake, IV Titration 521.329 348.783 Amount Amiodarone 450 mg In 66.112 Dextrose 5% in Water 250 ml @ 0.5 MG/MIN 16.667 mls/hr IV .Q15H [facility] Rx#: [id number] Norepinephrine 4 mg In 71.329 182.671 Sodium Chloride 0.9% 250 ml @ 0.03 MCG/KG/MIN 17. 005 mls/hr IV .[id number] ONE Rx#:[id number] Sodium Chloride 0.9% 1, 400 100 000 ml @ 100 mls/hr IV . Q10H [facility] Rx#:[id number] cefTRIAXone 1 gm In 50 Sodium Chloride 0.9% 50 ml @ 100 mls/hr IVPB Q24H [facility] Rx#:[id number] Output: Urine 0 1200 0 Other: Voiding Method Urinal Urinal - Labs CBC & Chem 7: 04/28/23 05:46 04/28/23 05:46 Labs: Abnormal Lab Results - Last 24 Hours (Table) 04/27/23 04/27/23 04/27/23 Range/Units 12:31 12:31 19:15 RBC 4.14 L (4.30-5.90) m/uL Hgb 12.8 L (13.0-17.5) gm/dL Hct (39.0-53.0) % Neutrophils # 8.5 H (1.3-7.7) k/uL Lymphocytes # 0.6 L (1.0-4.8) k/uL Sodium 134 L (137-145) mmol/L Chloride (98-107) mmol/L Carbon Dioxide 18 L (22-30) mmol/L BUN 48 H (9-20) mg/dL Creatinine 1.70 H (0.66-1.25) mg/dL Glucose 122 H (74-99) mg/dL Calcium (8.4-10.2) mg/dL AST 133 H (17-59) U/L ALT 110 H (4-49) U/L Total Protein 5.9 L (6.3-8.2) g/dL Albumin 2.9 L (3.5-5.0) g/dL Urine Protein 1+ H (Negative) Urine Blood Moderate H (Negative) Ur Leukocyte Esterase Large H (Negative) Urine RBC 18 H (0-5) /hpf Urine WBC 29 H (0-5) /hpf Urine Bacteria Rare H (None) /hpf Urine Mucus Rare H (None) /hpf 04/28/23 04/28/23 Range/Units 05:46 05:46 RBC 3.34 L (4.30-5.90) m/uL Hgb 10.5 L (13.0-17.5) gm/dL Hct 32.8 L (39.0-53.0) % Neutrophils # (1.3-7.7) k/uL Lymphocytes # 0.8 L (1.0-4.8) k/uL Sodium 135 L (137-145) mmol/L Chloride 109 H (98-107) mmol/L Carbon Dioxide 18 L (22-30) mmol/L BUN 49 H (9-20) mg/dL Creatinine 1.52 H (0.66-1.25) mg/dL Glucose (74-99) mg/dL Calcium 7.6 L (8.4-10.2) mg/dL AST 219 H (17-59) U/L ALT 183 H (4-49) U/L Total Protein 4.6 L (6.3-8.2) g/dL Albumin 2.1 L (3.5-5.0) g/dL Urine Protein (Negative) Urine Blood (Negative) Ur Leukocyte Esterase (Negative) Urine RBC (0-5) /hpf Urine WBC (0-5) /hpf Urine Bacteria (None) /hpf Urine Mucus (None) /hpf
--- NOTE | 2023-04-28 22:10 | PN ---
PROGRESS NOTE SUBJECTIVE: This is a 52-year-old gentleman who presented to hospital with atrial fibrillation with poorly controlled ventricular rate and was cardioverted in the emergency room. MEDICATIONS: He is currently on, 1. Amiodarone. 2. Eliquis. 3. Lipitor. 4. Lopressor. He is somewhat hypotensive and Levophed is being tapered. PHYSICAL EXAMINATION: GENERAL: Comfortable at rest. VITAL SIGNS: Stable. CHEST: Reveals good air entry bilaterally. HEART: First and second heart sounds. No gallop. EXTREMITIES: Did not reveal any edema. Peripheral pulses are felt. ASSESSMENT AND PLAN: 1. Paroxysmal atrial fibrillation with rapid ventricular rate. 2. Coronary artery disease. 3. Acute renal insufficiency, probably related to severe hypotension. PLAN: Taper and stop the Levophed. The patient apparently had urinary tract infection prior to coming in, primary will address this issue. I am going to switch him to oral amiodarone and renal insufficiency to be addressed by primary. We will obtain a 2D echo. Possible discharge home tomorrow. MMTHORL / IJN: [id number] /
[2023-04-29] MEDS: METOPROLOL TARTRATE 50 MG TAB PO SCH (07:53)
--- NOTE | 2023-04-29 10:46 | CA ---
Transthoracic Echo Report Name: Dayron Hart Age: 52 Gender: M : 1970 Exam Date: 04/28/2023 10:08 Exam Location: [place] Ht (in): 71 Wt (lb): 328 Ordering Physician: Walter Evans DO Attending/Referring Phys: Fire [employer] Aide Antelmo Parnell RD Procedure CPT: Indications: dysrhythmia Cardiac Hx: Technical Quality: Fair Contrast 1: Total Dose (mL): Contrast 2: Total Dose (mL): MEASUREMENTS (Male / Female) Normal Values 2D ECHO LV Diastolic Diameter PLAX 6.4 cm 4.2 - 5.9 / 3.9 - 5.3 cm LV Systolic Diameter PLAX 4.5 cm IVS Diastolic Thickness 1.2 cm 0.6 - 1.0 / 0.6 - 0.9 cm LVPW Diastolic Thickness 1.1 cm 0.6 - 1.0 / 0.6 - 0.9 cm LV Relative Wall Thickness 0.4 RV Internal Dim ED PLAX 3.9 cm LVOT Diameter 2.4 cm Aortic Root Diameter 3.3 cm LA Systolic Diameter LX 2.8 cm 3.0 - 4.0 / 2.7 - 3.8 cm LV Diastolic Volume MOD BP 142.1 cm??? 67 - 155 / 56 - 104 cm??? LV Systolic Volume MOD BP 63.4 cm??? - 58 / 19 - 49 cm??? LV Ejection Fraction MOD BP 55.4 % >= 55 % LV Cardiac Index MOD BP 2385.5 cm???/min???m??? LV Diastolic Volume MOD 4C 146.0 cm??? LV Systolic Volume MOD 4C 69.8 cm??? LV Ejection Fraction MOD 4C 52.2 % LV Cardiac Index MOD 4C 2309.1 cm???/min???m??? LV Diastolic Length 4C 8.7 cm LV Systolic Length 4C 7.7 cm LV Diastolic Volume MOD 2C 125.5 cm??? LV Systolic Volume MOD 2C 56.4 cm??? LV Ejection Fraction MOD 2C 55.0 % LV Cardiac Index MOD 2C 2095.2 cm???/min???m??? LV Diastolic Length 2C 7.9 cm LV Systolic Length 2C 7.6 cm LA Volume 108.0 cm??? 18 - 58 / 22 - 52 cm??? LA Volume Index 38.5 cm???/m??? 16 - 28 cm???/m??? DOPPLER AV Peak Velocity 116.7 cm/s AV Peak Gradient 5.5 mmHg AV Mean Velocity 81.0 cm/s AV Mean Gradient 3.0 mmHg AV Velocity Time Integral 19.1 cm LVOT Peak Velocity 91.6 cm/s LVOT Peak Gradient 3.4 mmHg LVOT Velocity Time Integral 15.4 cm LVOT Stroke Volume 70.3 cm??? LVOT Stroke Volume Index 27.0 ml/m??? LVOT Cardiac Index 2130.7 cm???/min???m??? AV Area Cont Eq vti 3.7 cm??? AV Area Cont Eq pk 3.6 cm??? MV Peak Velocity 98.5 cm/s MV Peak Gradient 3.9 mmHg MV Mean Velocity 46.4 cm/s MV Mean Gradient 1.1 mmHg MV Velocity Time Integral 24.4 cm MR Peak Velocity 350.1 cm/s MR Peak Gradient 49.0 mmHg Mitral E Point Velocity 72.8 cm/s Mitral A Point Velocity 35.8 cm/s Mitral E to A Ratio 2.0 MV Deceleration Time 221.8 ms MV E' Velocity 10.4 cm/s Mitral E to MV E' Ratio 7.0 TR Peak Velocity 288.1 cm/s TR Peak Gradient 33.2 mmHg Right Ventricular Systolic Press 38.2 mmHg PV Peak Velocity 101.5 cm/s PV Peak Gradient 4.1 mmHg FINDINGS Left Ventricle Mildly increased septal wall thickness. Moderately increased left ventricular diastolic diameter. Mildly increased left ventricular systolic volume. Left ventricular ejection fraction is estimated at 45-50 %. Right Ventricle Right ventricular dilatation. Systolic ventricular wal flatening. RVSP= 38mmHg. Right Atrium Mild right atrial dilatation. Left Atrium Moderately increased left atrial volume. Mildly increased left atrial area. Mitral Valve Structurally normal mitral valve. Moderate MR. Aortic Valve Trileaflet aortic valve. No aortic valve stenosis or regurgitation. Tricuspid Valve Structurally normal tricuspid valve. Pulmonic Valve Pulmonic valve not well visualized. Moderate PI. Pericardium Normal pericardium. Aorta Normal size aortic root. CONCLUSIONS Mild increased left ventricular wall thickness Left ventricular ejection fraction 45-50% Septal bounce noted RVSP 38 Moderate mitral regurgitation No pericardial effusion Previewed by: Dr. Chase Stubbs DO (Electronically Signed) Final Date: 29 April 2023 10:45
[2023-04-29 11:29] LABS: Basophils % (A) 1 %; Eosinophils # (A) 0.1 k/uL (0-0.7); Eosinophils % (A) 2 %; HCT 31.7 % (39.0-53.0); Hypochromasia Slight; Lymphocytes # (A) 0.6 k/uL (1.0-4.8); Lymphocytes % (A) 14 %; MCHC 31.7 g/dL (31.0-37.0); MCV 97.8 fL (80.0-100.0); Mean Platelet Volume 9.4; Monocytes # (A) 0.3 k/uL (0-1.0); Monocytes % (A) 7 %; Neutrophils # (A) 3.4 k/uL (1.3-7.7); Neutrophils % (A) 75 %; Platelet Count 198 k/uL (150-450); RBC 3.24 m/uL (4.30-5.90); RDW 13.9 % (11.5-15.5); WBC 4.5 k/uL (3.8-10.6)
[2023-04-29 11:40] LABS: ALT 400 U/L (4-49); AST 431 U/L (17-59); African American GFR (CKD) 87 (>60 ml/min/1.73 sqM); Albumin 2.1 g/dL (3.5-5.0); Alkaline Phosphatase 74 U/L (38-126); Anion Gap 5 mmol/L; Blood Urea Nitrogen 35 mg/dL (9-20); Calcium 7.8 mg/dL (8.4-10.2); Carbon Dioxide 22 mmol/L (22-30); Chloride 110 mmol/L (98-107); Glucose 102 mg/dL (74-99); Non-African American GFR(CKD) 75 (>60 ml/min/1.73 sqM); Potassium 4.1 mmol/L (3.5-5.1); Sodium 137 mmol/L (137-145); Total Bilirubin 0.5 mg/dL (0.2-1.3); Total Protein 4.6 g/dL (6.3-8.2)
--- NOTE | 2023-04-29 12:06 | P.PN ---
Subjective Progress Note Date: 04/29/23 patient is a 52-year-old gentleman past medical history significant for recently diagnosed A-fib on Eliquis, hypertension, coronary disease, hyperlipidemia presented to the ER for palpitations. Patient states that he was all right this morning when after waking up he was went to the garage to get some stuff, on coming back to the house he felt lightheaded and dizzy. Patient felt his heart was beating very fast, was complaining of shortness of breath at that time as well. There was no complaint of chest pain. Denies any nausea, vomiting or abdominal pain. Patient stated that recently he was diagnosed with A-fib and was placed on Eliquis, normally follows up with Dr. Bustos. Because the sympt oms, patient called EMS and he was brought to the ER Initial lab work done in the ER showed WBC 9.6, hemoglobin 12.8, platelet count 272, sodium 134, potassium 4.4, BUN 40, creatinine 1.70 AST 133, ALT 110 Chest x-ray done in the ER showed no acute cardiopulmonary process Patient was found to be in A-fib with RVR and was hypotensive, underwent synchronized cardioversion x 5 at 50, 50, 75, 75 and then 150 J. Patient admitted to internal medicine service 04/28. Patient seen and examined. Currently being monitored in ICU. Currently in sinus rhythm. Patient has been weaned off the Levophed, currently on oral amiodarone. States he feels much better 04/29. Patient seen and examined. Patient LFTs have been trending up. Will discontinue Lipitor and amiodarone. Denies any abdominal pain REVIEW OF SYSTEMS: CONSTITUTIONAL: No fever, no malaise,. CARDIOVASCULAR: No chest pain, no palpitations, no syncope. PULMONARY: No shortness of breath, no cough, GASTROINTESTINAL: No diarrhea, no nausea, no vomiting, no abdominal pain. NEUROLOGICAL: No headaches, no weakness, PHYSICAL EXAMINATION: GENERAL: The patient is alert and oriented x3, not in any acute distress. Well developed, well nourished. HEENT: Pupils are round and equally reacting to light. EOMI. No scleral icterus. No conjunctival pallor. Normocephalic, atraumatic. No pharyngeal erythema. No thyromegaly. CARDIOVASCULAR: S1 and S2 present. No murmurs, rubs, or gallops. PULMONARY: Chest is clear to auscultation, no wheezing or crackles. ABDOMEN: Soft, nontender, nondistended, normoactive bowel sounds. No palpable organomegaly. MUSCULOSKELETAL: No joint swelling or deformity. EXTREMITIES: No cyanosis, clubbing, or pedal edema. NEUROLOGICAL: Gross neurological examination did not reveal any focal deficits. SKIN: No rashes. Assessment and plan A-fib with RVR, s/p cardioversion Hypotension secondary to A-fib with RVR TENZIN Acute transaminitis Urinary tract infection, initiated on Cipro outpatient History of significant left-sided kidney stones requiring left percutaneous nephrostomy access and tube placement with subsequent removal within the past 2 weeks Coronary artery disease with previous stent placement Suspected obstructive sleep apnea, planning for sleep study in the outpatient setting Hypertension Hyperlipidemia History of V. tach Obesity with BMI of 45.7 Monitor vital signs Monitor CBC Monitor CMP Continue telemetry monitoring Trend troponin. Ordered 2D echo DC amiodarone secondary to elevated LFTs DC Lipitor Continue IV Rocephin Continue Eliquis and Toprol Cardiology following GI consulted for elevated LFTs Labs and medication were reviewed.. Continue same treatment. Continue with symptomatic treatment. Resume home medication. Monitor labs and vitals. DVT and GI prophylaxis. Further recommendations as per clinical course of the patient Dictation was produced using [employer] dictation software. please excuse any grammatical, word or spelling errors. Objective - Vital Signs Vital signs: Vital Signs Temp 98.6 F 04/28/23 20:49 Pulse 71 04/29/23 08:56 Resp 20 04/29/23 08:56 BP 109/71 04/29/23 08:38 Pulse Ox 96 04/29/23 04:44 FiO2 Intake & Output 04/28/23 04/29/23 04/29/23 18:59 06:59 18:59 Intake Total 2183.495 740 110 Output Total 700 Balance 1483.495 740 110 Intake: IV 2100 200 Sodium Chloride 0.9% 1, 1100 200 000 ml @ 100 mls/hr IV . Q10H [facility] Rx#:[id number] Sodium Chloride 0.9% 1, 1000 000 ml @ 999 mls/hr IV . Q1H1M ONE Rx#:[id number] Intake, IV Titration 83.495 Amount Norepinephrine 4 mg In 83.495 Sodium Chloride 0.9% 250 ml @ 0.03 MCG/KG/MIN 16. 699 mls/hr IV .[id number] [facility] Rx#:[id number] Oral 540 110 Output: Urine 700 Other: Voiding Method Toilet Toilet Toilet Urinal # Voids 1 1 # Bowel Movements 1 - Labs CBC & Chem 7: 04/29/23 10:57 04/29/23 10:57 Labs: Microbiology - Last 24 Hours (Table) 04/27/23 19:15 Urine Culture - Final Urine,Voided
--- NOTE | 2023-04-29 13:49 | P.PN ---
Subjective Progress Note Date: 04/29/23 Consult reason: atrial fibrillation (With RVR) History of present illness: History of present illness: This is a 52-year-old male patient of Dr. DAVIDE Vazquez with past medical history of coronary disease with stenting of the LAD 11/01/2022 with there was plaque rupture good result, morbid obesity, obstructive sleep, paroxysmal atrial fibrillation on Eliquis Hyperlipidemia, hypertension, kidney stones. We have been asked to evaluate the patient for A-fib with RVR. Patient presented to the hospital due to palpitations. This was sudden onset patient did not feel well in general with shortness of breath and lightheadedness. Ventricular rate was initially running in the low 200s and blood pressure was 206/96 dropped down to 71/37. Patient underwent synchronized cardioversion at 50, 75 x 2 and 150 J which finally converted him to sinus rhythm. Because of low blood pressure, patient was started on Levophed and he was also started on amiodarone 150 mg given and drip started. Patient was given Versed prior to cardioversion. Patient is also stat us post 2 L of IV fluids. Patient had a recent hospitalization on 04/15 which time he was seen by cardiology for new onset atrial fibrillation. Patient also was status post percutaneous nephrolithotomy and anticoagulation was placed on hold due to this and resumed on 04/22. Patient had follow-up in the office on 04/21 at which time he was to schedule a sleep study with his PCP. Brilinta was discontinued on the office visit. Helping out with what he needs all all symptoms okay EKG A-fib with RVR, #2 sinus rhythm Chest x-ray: No acute process WBC 9.6, hemoglobin 12.8, platelet count 272. INR 1.1. Sodium 134, potassium 4.4, BUN 48 creatinine 1.7. Blood sugar 122. AST 133, ALT 110, alkaline phosphatase 71. TSH 1.72. Home cardiac medications: Eliquis 5 mg twice daily, aspirin 81 mg daily, atorvastatin 80 mg daily, losartan 100 mg daily, Lopressor 50 mg in the morning and 25 mg in the evening, Nitrostat as needed. Cardiac catheterization 07/13/2022 revealed mildly elevated filling pressures, no gradient across the valve, no disease in RCA, LM or ramus, distal RCA with some dilation suggestive of inflammatory disease. LAD with 80% plaque rupture status post PCI of the LAD. Echocardiogram performed 08/14/2022 revealed EF of 55%, mild mitral tricuspid regurgitation, mild LVH. No pulmonary hypertension. Exercise tolerance test performed 08/25/2022 walked for 2 and half minutes with h eart rate 132, rare isolated PVCs, no angina, poor conditioning noted. Inconclusive stress test because of an adequate chronotropic response. 04/29 Patient was in ICU as a selective care overflow and is seen today on the cardiac stepdown unit. No new concerns from the patient. He remains in sinus rhythm. Patient is maintained on Eliquis, aspirin, Lopressor and also amiodarone. Patient noted him to be liver function test and amiodarone and Lipitor discontinued. Echocardiogram reveals EF 45 to 50%. Septal bounce noted. RVSP 38. Moderate mitral regurgitation. No pericardial effusion. Thank you Physical examination: Gen: This is a morbidly obese 52-year-old male. He appears to be in no acute distress VS: reviewed HEENT: Head is atraumatic, normocephalic. Pupils equal, round. Sclerae is anicteric. LUNGS: Clear to auscultation. No wheezes or rhonchi. No intercostal retractions. HEART: Regular rate and rhythm. No murmur. ABDOMEN: Soft No tenderness. EXTREMITIES: No pedal edema. No calf tenderness. NEUROLOGICAL: Patient is awake, alert and oriented x3. Assessment: A-fib with RVR status post synchronized cardioversion, currently in sinus rhythm Coronary artery disease with previous stenting of the LAD Obstructive sleep apnea Paroxysmal atrial fibrillation on Eliquis Hyperlipidemia Hypertension Kidney stones Morbid obesity with BMI of 45 Elevated liver function test most likely secondary to shock liver Plan: Continue patient's home cardiac medications Discontinue amiodarone and Lipitor due to elevated liver function test Continue Lopressor 25 mg twice daily Repeat CMP tomorrow Further recommendations to follow based upon clinical course Nurse practitioner note has been reviewed, I agree with documented findings and plan of care. Patient was seen and examined. Objective - Vital Signs Vital signs: Vital Signs Temp 98.6 F 04/28/23 20:49 Pulse 71 04/29/23 08:56 Resp 20 04/29/23 08:56 BP 109/71 04/29/23 08:38 Pulse Ox 96 04/29/23 04:44 FiO2 Intake & Output 02/04/29/23 04/29/23 18:59 06:59 18:59 Intake Total 2183.495 740 110 Output Total 700 Balance 1483.495 740 110 Intake: IV 2100 200 Sodium Chloride 0.9% 1, 1100 200 000 ml @ 100 mls/hr IV . Q10H [facility] Rx#:[id number] Sodium Chloride 0.9% 1, 1000 000 ml @ 999 mls/hr IV . Q1H1M [facility] Rx#:[id number] Intake, IV Titration 83.495 Amount Norepinephrine 4 mg In 83.495 Sodium Chloride 0.9% 250 ml @ 0.03 MCG/KG/MIN 16. 699 mls/hr IV .[id number] [facility] Rx#:[id number] Oral 540 110 Output: Urine 700 Other: Voiding Method Toilet Toilet Toilet Urinal # Voids 1 1 # Bowel Movements 1 - Labs CBC & Chem 7: 04/29/23 10:57 04/29/23 10:57 Labs: Microbiology - Last 24 Hours (Table) 04/27/23 19:15 Urine Culture - Final Urine,Voided
--- NOTE | 2023-04-29 14:14 | P.PN ---
Subjective Progress Note Date: 04/29/23 Principal diagnosis: Atrial fibrillation with RVR and hypotension This is a very pleasant 52-year-old male patient with a history of morbid obesity, suspected obstructive sleep apnea, pretension, hyperlipidemia, coronary artery disease and previous stent placement, atrial fibrillation noted just 2 weeks ago during a urology procedure for kidney stones. He had been on metoprolol and Eliquis. Following his kidney stones he did develop a urinary tract infection was initiated on Cipro to be taken for 10 days which she started yesterday. Today while he was out walking to his garage he became quite lightheaded and dizzy and short of breath. He presented here to the emergency room for the same. He was found to be in atrial fibrillation with a rapid ventricular response. He had undergone cardioversion x 5 with subsequent return to normal sinus rhythm. He was initiated on amiodarone at 1 mg/min. He was given 3 L of fluid resuscitation for hypotension and is on normal saline at 130 MLS per hour. He also was requiring some norepinephrine currently at 0.04 mcg/kg/min and admitted to the intensive care unit. He is seen today in consultation. He is awake and alert in no acute distress. He is maintaining O2 saturations in the high 90s on 2 L/min per nasal cannula. He denies any worsening shortness of breath, cough or congestion. He denies any chest pain or palpitations. He is currently remaining in sinus rhythm. Chest x-ray reveals no acute cardiopulmonary process. White count 9.6. Hemoglobin 12.8. Platelets 272. Sodium 134. Potassium 4.4. Bicarb 18. BUN 48. Creatinine 1.70. Glucose 122. AST 133. ALT 110. Troponin negative x 1. TSH 1.72. Free T4 2.0. Eliquis has been continued. Reevaluated today on 04/28/2023, remains in the ICU, he is off amiodarone, still requiring 0.03 mcg/kg/min of norepinephrine, IV fluid is running at 100 cc/h. Patient is on room air, he seems to be quite comfortable, not in any distress, last night his urine output was very poor, I was notified about this patient, and I recommended 1 dose of Lasix 40 mg which was given and the patient responded well to diuretics. Patient is also on Rocephin for presumptive urinary tract infection. Overall the patient is doing great, he is in sinus rhythm, and not in any distress, amiodarone was discontinued by cardiology and will likely go on oral amiodarone today. WBC count is 5.6 hemoglobin 10.5 basic metabolic profile is normal BUN is 49 creatinine 1.52 improved compared to creatinine of 1.70 yesterday Reevaluate today on 04/29/2023, patient is now on the cardiac floor, not in any distress, his initial presentation was a presentation of A-fib with RVR, patient had synchronized cardioversion, remains in sinus rhythm. His other medical problems include history of coronary artery disease and previous stenting of LAD, obstructive sleep apnea syndrome, paroxysmal atrial fibrillation, dyslipidemia, hypertension, and history of nephrolithiasis. Patient is doing great, relatively asymptomatic, on room air, not in any distress, no active pulmonary symptoms no cough no wheezing no shortness of breath. CBC is relatively normal basic metabolic profile is normal renal profile is almost back to normal creatinine is down to 1.11 Objective - Vital Signs Vital signs: Vital Signs Temp 97.3 F L 04/29/23 12:00 Pulse 76 04/29/23 12:00 Resp 20 04/29/23 12:00 BP 120/82 04/29/23 12:00 Pulse Ox 96 04/29/23 12:33 FiO2 Intake & Output 04/28/23 04/29/23 04/29/23 18:59 06:59 18:59 Intake Total 2183.495 740 220 Output Total 700 Balance 1483.495 740 220 Intake: IV 2100 200 Sodium Chloride 0.9% 1, 1100 200 000 ml @ 100 mls/hr IV . Q10H [facility] Rx#:[id number] Sodium Chloride 0.9% 1, 1000 000 ml @ 999 mls/hr IV . Q1H1M [facility] Rx#:[id number] Intake, IV Titration 83.495 Amount Norepinephrine 4 mg In 83.495 Sodium Chloride 0.9% 250 ml @ 0.03 MCG/KG/MIN 16. 699 mls/hr IV .[id number] [facility] Rx#:[id number] Oral 540 220 Output: Urine 700 Other: Voiding Method Toilet Toilet Toilet Urinal # Voids 1 1 # Bowel Movements 1 - Exam General: The patient is awake and alert, in no distress, and does not appear acutely ill. On room air Skin: Skin is warm and dry and no rashes or lesions are noted. Eye: Pupils are equal, round and reactive to light, extra-ocular movements are intact; there is normal conjunctiva bilaterally. Ears, nose, mouth and throat: There are moist mucous membranes and no oral lesions. Neck: The neck is supple, there is no tenderness or JVD. Cardiovascular: There is a regular rate and rhythm. No murmur, rub or gallop is appreciated. Respiratory: Clear throughout no crackles rhonchi or wheezes Gastrointestinal: Soft, non-distended, non-tender abdomen without masses or organomegaly noted. There is no rebound or guarding present. Bowel sounds are unremarkable. Back: There is no tenderness to palpation in the midline. There is no obvious deformity. Musculoskeletal: Normal ROM, no tenderness, There is no pedal edema. There is no calf tenderness or swelling. No cords were appreciated. Neurological: CN II-XII intact, Cranial nerves III through XII are intact. There are no obvious motor or sensory deficits. Coordination appears grossly intact. Speech is normal. Psychiatric: Cooperative, appropriate mood & affect, normal judgment. - Labs CBC & Chem 7: 04/29/23 10:57 04/29/23 10:57 Labs: Abnormal Lab Results - Last 24 Hours (Table) 04/29/23 04/29/23 Range/Units 10:57 10:57 RBC 3.24 L (4.30-5.90) m/uL Hgb 10.0 L (13.0-17.5) gm/dL Hct 31.7 L (39.0-53.0) % Lymphocytes # 0.6 L (1.0-4.8) k/uL Chloride 110 H (98-107) mmol/L BUN 35 H (9-20) mg/dL Glucose 102 H (74-99) mg/dL Calcium 7.8 L (8.4-10.2) mg/dL AST 431 H (17-59) U/L ALT 400 H (4-49) U/L Total Protein 4.6 L (6.3-8.2) g/dL Albumin 2.1 L (3.5-5.0) g/dL Microbiology - Last 24 Hours (Table) 04/27/23 19:15 Urine Culture - Final Urine,Voided Assessment and Plan Assessment: Impression: Atrial fibrillation with RVR and hypotension requiring cardioversion x 5,, patient is presently remaining in sinus rhythm Acute urinary tract infection, patient was on Cipro on outpatient basis but now he is on Rocephin cultures are negative, and this could discontinue Rocephin History of left-sided staghorn calculus requiring percutaneous nephrostomy acc ess and that was addressed by urology. Coronary artery disease and previous stent placement Benign essential hypertension Dyslipidemia Obesity with BMI of 46 kg/m Acute kidney injury, resolved Recommendation: Present supportive care measures Anticoagulation with Eliquis Continue Rocephin Consider discharge planning once cleared by cardiology Will continue to follow Time with Patient: Less than 30
[2023-04-29] MEDS ORDERED: AMIODARONE 200 MG TAB PO SCH (21:00)
[2023-04-30 07:39] VITALS: RESP 16
[2023-04-30 09:18] LABS: Basophils % (A) 0 %; Eosinophils # (A) 0.1 k/uL (0-0.7); Eosinophils % (A) 1 %; HCT 33.2 % (39.0-53.0); HGB 10.5 gm/dL (13.0-17.5); Lymphocytes # (A) 0.7 k/uL (1.0-4.8); Lymphocytes % (A) 13 %; MCH 30.4 pg (25.0-35.0); MCHC 31.7 g/dL (31.0-37.0); MCV 95.9 fL (80.0-100.0); Mean Platelet Volume 9.4; Monocytes # (A) 0.3 k/uL (0-1.0); Monocytes % (A) 6 %; Neutrophils # (A) 4.3 k/uL (1.3-7.7); Neutrophils % (A) 77 %; Platelet Count 223 k/uL (150-450); RBC 3.46 m/uL (4.30-5.90); RDW 14.1 % (11.5-15.5); WBC 5.5 k/uL (3.8-10.6)
[2023-04-30 09:42] LABS: ALT 419 U/L (4-49); AST 300 U/L (17-59); African American GFR (CKD) >90 (>60 ml/min/1.73 sqM); Albumin 2.5 g/dL (3.5-5.0); Alkaline Phosphatase 82 U/L (38-126); Anion Gap 7 mmol/L; Blood Urea Nitrogen 29 mg/dL (9-20); Calcium 8.1 mg/dL (8.4-10.2); Carbon Dioxide 17 mmol/L (22-30); Chloride 113 mmol/L (98-107); Glucose 100 mg/dL (74-99); Non-African American GFR(CKD) >90 (>60 ml/min/1.73 sqM); Potassium 3.9 mmol/L (3.5-5.1); Sodium 137 mmol/L (137-145); Total Bilirubin 0.5 mg/dL (0.2-1.3); Total Protein 5.3 g/dL (6.3-8.2)
--- NOTE | 2023-04-30 10:05 | US ---
EXAMINATION TYPE: US abdomen limited DATE OF EXAM: 04/30/2023 COMPARISON: CT angiogram 10/05/2022. CLINICAL INDICATION: Male, 52 years old with history of Elevated LFTs; large habitus, elevated labs TECHNIQUE: Multiple sonographic images of the right upper quadrant are obtained. FINDINGS: EXAM MEASUREMENTS: Liver Length: 22.3 cm Gallbladder Wall: 0.3 cm CBD: 0.6 cm Right Kidney: 13.0 x 6.1 x 6.7 cm HAND FLESHER NOTES:large habitus Pancreas: wnl Liver: enlarged Gallbladder: wnl Evidence for sonographic Sepulveda's sign: no CBD: wnl Right Kidney: wnl IMPRESSION: No evidence for acute process.
[2023-04-30 11:29] VITALS: BP 115/78; PULSE 63; TEMP 97.7
--- NOTE | 2023-04-30 12:18 | P.CONS ---
History of Present Illness - Reason for Consult Consult date: 04/30/23 Elevated LFTs Requesting physician: Devan Frazier - Chief Complaint Irregular heart rate, dizziness, shortness of breath - History of Present Illness This is a pleasant 52-year-old male with a history of coronary artery disease status post stenting, morbid obesity, obstructive sleep apnea, hypertension, hyperlipidemia, kidney stones and recent diagnosis of paroxysmal atrial fibrillation on Eliquis. Scented to the emergency department with shortness of breath, dizziness and irregular heartbeat. He was recently diagnosed with atrial fibrillation when he came in for kidney stones this past Wednesday. He also was started on ciprofloxacin for urinary tract infection and prior to that he was on Bactrim in March for 10 days. Patient was admitted for A-fib with RVR. He was noted to have elevated LFTs on admission which had continue to trend upward. Gastroenterology was consulted for elevated LFTs. Patient denies any previous history of liver disease, no history of alcohol use, patient is morbidly obese and has lost 128 pounds over the last year. He denies any ab dominal pain, nausea or vomiting. He was on Lipitor 80 mg at bedtime he has been on that since July 2022. He denies any other history of elevated LFTs related to his Lipitor. Review of Systems REVIEW OF SYSTEMS: CARDIOPULMONARY: No chest pain or shortness of breath. Gastrointestinal: No abdominal pain. No nausea or vomiting. No hematemesis, coffee-ground emesis. No rectal bleeding, or melena. GENITOURINARY: No dysuria or hematuria. MUSCULOSKELETAL: Reports normal range of motion. SKIN: No rashes. No jaundice. ENDOCRINE: No chills, fevers. No excessive weight gain or loss. No polydipsia or polyuria. PSYCHIATRIC: Unremarkable. NEUROLOGY: No change in mental status. Denies dizziness, headache. ENT: Vision unremarkable. CONSTITUTIONAL: No recent weight loss. No fever, chills, night sweats. Past Medical History Past Medical History: Hypertension Additional Past Medical History / Comment(s): prediabetes, Obesity History of Any Multi-Drug Resistant Organisms: None Reported Past Surgical History: Heart Catheterization With Stent Additional Past Surgical History / Comment(s): back Past Anesthesia/Blood Transfusion Reactions: No Reported Reaction Date of Last Stent Placement:: jul [address] Vazquez Past Psychological History: No Psychological Hx Reported Smoking Status: Never smoker Past Alcohol Use History: None Reported Past Drug Use History: None Reported - Past Family History Father Family Medical History: Cancer, Diabetes Mellitus Mother Family Medical History: COPD Medications and Allergies Home Medications Medication Instructions Recorded Confirmed Type Aspirin 81 mg PO DAILY tab 07/15/22 04/27/23 Rx Losartan Potassium [Cozaar] 100 mg PO DAILY 08/12/22 04/27/23 History Nitroglycerin 0.4 mg SL Q5M PRN 08/12/22 04/27/23 History Atorvastatin [Lipitor] 80 mg PO DIRECTED 04/09/23 04/27/23 History Apixaban [Eliquis] 5 mg PO BID 04/27/23 04/27/23 History Ciprofloxacin HCl [Cipro] 500 mg PO BID 04/27/23 04/27/23 History Metoprolol Tartrate [Lopressor] 25 mg PO HS 04/27/23 04/27/23 History Metoprolol Tartrate [Lopressor] 50 mg PO DAILY 04/27/23 04/27/23 History Allergies Allergy/AdvReac Type Severity Reaction Status Date / Time phenobarbital AdvReac hyperactivi Verified 04/27/23 13:54 ty Physical Exam Vitals: Vital Signs Temp Pulse Pulse Resp BP Pulse Ox 04/30/23 03:53 98.7 F 70 18 119/80 97 04/29/23 23:28 98 F 75 16 126/79 97 04/29/23 20:05 62 16 04/29/23 20:04 98.1 F 62 16 115/71 96 04/29/23 15:20 71 16 126/87 98 04/29/23 12:33 96 04/29/23 12:00 97.3 F L 76 20 120/82 96 04/29/23 08:56 71 20 04/29/23 08:38 80 16 109/71 Intake and Output 04/29/23 04/29/23 04/30/23 14:59 22:59 06:59 Intake Total 220 110 Output Total 750 480 Balance 220 -640 -480 Intake: Oral 220 110 Output: Urine 750 480 Other: Voiding Method Toilet Toilet Toilet # Voids 1 General appearance: The patient is alert, oriented, appears in no acute dist ress. Morbidly obese. HET: Head is normocephalic and atraumatic. Conjunctiva pink. Sclera anicteric. Neck: Supple without lymphadenopathy. Trachea midline. Heart: Regular. Lungs: Equal expansion, normal respiratory effort. Abdomen: Soft, morbidly obese, nontender, nondistended. Skin: No rashes. No jaundice. Extremities: Normal skin color and turgor. No pedal edema. Neurological: No focal deficits. Alert and oriented x3. Results CBC & Chem 7: 04/30/23 08:55 04/30/23 08:55 Labs: Abnormal Lab Results - Last 24 Hours (Table) 04/29/23 04/29/23 Range/Units 10:57 10:57 RBC 3.24 L (4.30-5.90) m/uL Hgb 10.0 L (13.0-17.5) gm/dL Hct 31.7 L (39.0-53.0) % Lymphocytes # 0.6 L (1.0-4.8) k/uL Chloride 110 H (98-107) mmol/L BUN 35 H (9-20) mg/dL Glucose 102 H (74-99) mg/dL Calcium 7.8 L (8.4-10.2) mg/dL AST 431 H (17-59) U/L ALT 400 H (4-49) U/L Total Protein 4.6 L (6.3-8.2) g/dL Albumin 2.1 L (3.5-5.0) g/dL Comments: Abdominal ultrasound with findings of enlarged liver. No evidence for acute process. Assessment and Plan (1) Elevated LFTs Narrative/Plan: 52-year-old male who presented to the emergency department for shortness of breath and rapid heart rate was found to be in atrial fibrillation with RVR. Recent diagnosis of A-fib and started on Eliquis this past Wednesday when he came in for kidney stones. He was also positive for urinary tract infection started on ciprofloxacin at that time. Prior to that he had been on Bactrim in March for 10 days. He was noted to have elevated LFTs on admission which continued to trend up. Unclear etiology as patient has no prior history of liver disease, denies any alcohol abuse however patient is morbidly obese and has lost 128 pounds. He likely has some underlying fatty liver disease. Suspect super imposed by medication induced. Would recommend holding atorvastatin at this time, consider discontinuing or changing ciprofloxacin as that also can elevated LFTs as well as QT prolongation. Current Visit: Yes Status: Acute Code(s): R79.89 - OTHER SPECIFIED ABNORMAL FINDINGS OF BLOOD CHEMISTRY SNOMED Code(s): 090399101 (2) Atrial fibrillation with RVR Current Visit: Yes Status: Acute Code(s): I48.91 - UNSPECIFIED ATRIAL FIBRILLATION SNOMED Code(s): 250281319539379 Plan: 1. Continue symptomatic and supportive care 2. Continue recommendations from cardiology 3. Elevated LFTs likely secondary to underlying fatty liver disease supe rimposed with medication induced hepatitis. Recommend discontinuing atorvastatin 4. Recommend discontinuing Cipro 5. Avoid hepatotoxic medications 6. Acute hepatitis panel ordered 7. Liver workup ordered 8. Patient recommended to follow-up with gastroenterology after discharge 9. Continue weight loss efforts Thank you for allowing us to participate in the care of the patient, the GI service will sign off, gastroenterology will not be available at the hospital this weekend and through next week. If further evaluation by gastroenterology is required the patient will need transfer as per the primary team's discretion. Dr. Joan Sanchez I agree with the dictator's note, documented as a scribe by Juli Joel.
--- NOTE | 2023-04-30 13:33 | P.PN ---
Subjective Progress Note Date: 04/30/23 Consult reason: atrial fibrillation (With RVR) History of present illness: History of present illness: This is a 52-year-old male patient of Dr. DAVIDE Vazquez with past medical history of coronary disease with stenting of the LAD 11/01/2022 with there was plaque rupture good result, morbid obesity, obstructive sleep, paroxysmal atrial fibrillation on Eliquis Hyperlipidemia, hypertension, kidney stones. We have been asked to evaluate the patient for A-fib with RVR. Patient presented to the hospital due to palpitations. This was sudden onset patient did not feel well in general with shortness of breath and lightheadedness. Ventricular rate was initially running in the low 200s and blood pressure was 206/96 dropped down to 71/37. Patient underwent synchronized cardioversion at 50, 75 x 2 and 150 J which finally converted him to sinus rhythm. Because of low blood pressure, patient was started on Levophed and he was also started on amiodarone 150 mg given and drip started. Patient was given Versed prior to cardioversion. Patient is also stat us post 2 L of IV fluids. Patient had a recent hospitalization on 04/15 which time he was seen by cardiology for new onset atrial fibrillation. Patient also was status post percutaneous nephrolithotomy and anticoagulation was placed on hold due to this and resumed on 04/22. Patient had follow-up in the office on 04/21 at which time he was to schedule a sleep study with his PCP. Brilinta was discontinued on the office visit. Helping out with what he needs all all symptoms okay EKG A-fib with RVR, #2 sinus rhythm Chest x-ray: No acute process WBC 9.6, hemoglobin 12.8, platelet count 272. INR 1.1. Sodium 134, potassium 4.4, BUN 48 creatinine 1.7. Blood sugar 122. AST 133, ALT 110, alkaline phosphatase 71. TSH 1.72. Home cardiac medications: Eliquis 5 mg twice daily, aspirin 81 mg daily, atorvastatin 80 mg daily, losartan 100 mg daily, Lopressor 50 mg in the morning and 25 mg in the evening, Nitrostat as needed. Cardiac catheterization 07/13/2022 revealed mildly elevated filling pressures, no gradient across the valve, no disease in RCA, LM or ramus, distal RCA with some dilation suggestive of inflammatory disease. LAD with 80% plaque rupture status post PCI of the LAD. Echocardiogram performed 08/14/2022 revealed EF of 55%, mild mitral tricuspid regurgitation, mild LVH. No pulmonary hypertension. Exercise tolerance test performed 08/25/2022 walked for 2 and half minutes with h eart rate 132, rare isolated PVCs, no angina, poor conditioning noted. Inconclusive stress test because of an adequate chronotropic response. 04/29 Patient was in ICU as a selective care overflow and is seen today on the cardiac stepdown unit. No new concerns from the patient. He remains in sinus rhythm. Patient is maintained on Eliquis, aspirin, Lopressor and also amiodarone. Patient noted him to be liver function test and amiodarone and Lipitor discontinued. Echocardiogram reveals EF 45 to 50%. Septal bounce noted. RVSP 38. Moderate mitral regurgitation. No pericardial effusion. Thank you 04/30 Liver function test are improved today. AST 300, ALT 419. BUN 29, creatinine 0.94, potassium 3.9, hemoglobin 10.5. Abdominal ultrasound showed no acute process. Patient denies any new concerns today. No chest pain, no palpitations, no lightheadedness or dizziness. Physical examination: Gen: This is a morbidly obese 52-year-old male. He appears to be in no acute distress VS: reviewed HEENT: Head is atraumatic, normocephalic. Pupils equal, round. Sclerae is anicteric. LUNGS: Clear to auscultation. No wheezes or rhonchi. No intercostal retractions. HEART: Regular rate and rhythm. No murmur. ABDOMEN: Soft No tenderness. EXTREMITIES: No pedal edema. No calf tenderness. NEUROLOGICAL: Patient is awake, alert and oriented x3. Assessment: A-fib with RVR status post synchronized cardioversion, currently in sinus rhythm Coronary artery disease with previous stenting of the LAD Obstructive sleep apnea Paroxysmal atrial fibrillation on Eliquis Hyperlipidemia Hypertension Kidney stones Morbid obesity with BMI of 45 Elevated liver function test most likely secondary to shock liver Plan: Continue patient's home cardiac medications Discontinue amiodarone and Lipitor due to elevated liver function test Continue Lopressor 25 mg twice daily Patient is cleared for discharge from cardiology and may follow-up with Dr. DAVIDE Vazquez in 1 to 2 weeks. Nurse practitioner note has been reviewed, I agree with documented findings and plan of care. Patient was seen and examined. Objective - Vital Signs Vital signs: Vital Signs Temp 97.7 F 04/30/23 11:05 Pulse 63 04/30/23 11:05 Resp 16 04/30/23 11:05 BP 115/78 04/30/23 11:05 Pulse Ox 98 04/30/23 11:05 FiO2 Intake & Output 04/29/23 04/30/23 04/30/23 18:59 06:59 18:59 Intake Total 330 220 Output Total 750 480 700 Balance -420 -480 -480 Intake: Oral 330 220 Output: Urine 750 480 700 Other: Voiding Method Toilet Toilet Toilet # Voids 1 - Labs CBC & Chem 7: 04/30/23 08:55 04/30/23 08:55 Labs: Abnormal Lab Results - Last 24 Hours (Table) 04/30/23 04/30/23 Range/Units 08:55 08:55 RBC 3.46 L (4.30-5.90) m/uL Hgb 10.5 L (13.0-17.5) gm/dL Hct 33.2 L (39.0-53.0) % Lymphocytes # 0.7 L (1.0-4.8) k/uL Chloride 113 H (98-107) mmol/L Carbon Dioxide 17 L (22-30) mmol/L BUN 29 H (9-20) mg/dL Glucose 100 H (74-99) mg/dL Calcium 8.1 L (8.4-10.2) mg/dL AST 300 H (17-59) U/L ALT 419 H (4-49) U/L Total Protein 5.3 L (6.3-8.2) g/dL Albumin 2.5 L (3.5-5.0) g/dL
--- NOTE | 2023-04-30 13:37 | P.DS ---
Providers Date of admission: 04/27/23 13:14 Expected date of discharge: 04/30/23 Attending physician: Devan Frazier MD Consults: 04/27/23 13:01 Consult Physician Stat Consulting Provider: Krishna Sanchez Consult Reason/Comments: a fib Do you want consulting provider notified?: Already Contacted 04/27/23 13:11 Consult Physician Stat Consulting Provider: Freddie Pineda Consult Reason/Comments: Critical care Do you want consulting provider notified?: Yes 04/29/23 12:05 Consult Physician Routine Consulting Provider: Manjula Sanchez Consult Reason/Comments: Elevated LFTs Do you want consulting provider notified?: Yes Primary care physician: [facility] Hospital Course: Discharge diagnoses; A-fib with RVR, s/p cardioversion Hypotension secondary to A-fib with RVR TENZIN Acute transaminitis Urinary tract infection, initiated on Cipro outpatient History of significant left-sided kidney stones requiring left percutaneous nephrostomy access and tube placement with subsequent removal within the past 2 weeks Coronary artery disease with previous stent placement Suspected obstructive sleep apnea, planning for sleep study in the outpatient setting Hypertension Hyperlipidemia History of V. tach Obesity with BMI of 45.7 Hospital course; patient is a 52-year-old gentleman past medical history significant for recently diagnosed A-fib on Eliquis, hypertension, coronary disease, hyperlipidemia presented to the ER for palpitations. Patient states that he was all right this morning when after waking up he was went to the garage to get some stuff, on coming back to the house he felt lightheaded and dizzy. Patient felt his heart was beating very fast, was complaining of shortness of breath at that time as well. There was no complaint of chest pain. Denies any nausea, vomiting or abdominal pain. Patient stated that recently he was diagnosed with A-fib and was placed on Eliquis, normally follows up with Dr. Bustos. Because the symptoms, patient called EMS and he was brought to the ER Initial lab work done in the ER showed WBC 9.6, hemoglobin 12.8, platelet count 272, sodium 134, potassium 4.4, BUN 40, creatinine 1.70 AST 133, ALT 110 Chest x-ray done in the ER showed no acute cardiopulmonary process Patient was found to be in A-fib with RVR and was hypotensive, underwent synchronized cardioversion x 5 at 50, 50, 75, 75 and then 150 J. Patient admitted to internal medicine service 04/28. Patient seen and examined. Currently being monitored in ICU. Currently in sinus rhythm. Patient has been weaned off the Levophed, currently on oral amiodarone. States he feels much better 04/29. Patient seen and examined. Patient LFTs have been trending up. Will discontinue Lipitor and amiodarone. Denies any abdominal pain 04/30. Patient seen and examined. Patient was seen by GI, recommended elevated LFTs were secondary to medications, recommended discontinuing Lipitor. Cardiology recommended discharge patient on Eliquis and Lopressor. Outpatient follow-up with cardiology. Patient completed course of antibiotics in the hospital PHYSICAL EXAMINATION: GENERAL: The patient is alert and oriented x3, not in any acute distress. Well developed, well nourished. HEENT: Pupils are round and equally reacting to light. EOMI. No scleral icterus. No conjunctival pallor. Normocephalic, atraumatic. No pharyngeal erythema. No thyromegaly. CARDIOVASCULAR: S1 and S2 present. No murmurs, rubs, or gallops. PULMONARY: Chest is clear to auscultation, no wheezing or crackles. ABDOMEN: Soft, nontender, nondistended, normoactive bowel sounds. No palpable organomegaly. MUSCULOSKELETAL: No joint swelling or deformity. EXTREMITIES: No cyanosis, clubbing, or pedal edema. NEUROLOGICAL: Gross neurological examination did not reveal any focal deficits. SKIN: No rashes. Dictation was produced using [employer] dictation software. please excuse any grammatical, word or spelling errors. Patient Condition at Discharge: Good Plan - Discharge Summary Discharge Rx Participant: No New Discharge Prescriptions: New Metoprolol Tartrate [Lopressor] 25 mg PO BID 30 Days #60 tab Continue Nitroglycerin 0.4 mg SL Q5M PRN PRN Reason: Chest Pain Apixaban [Eliquis] 5 mg PO BID Aspirin 81 mg PO DAILY tab Discontinued Losartan Potassium [Cozaar] 100 mg PO DAILY Metoprolol Tartrate [Lopressor] 25 mg PO HS Metoprolol Tartrate [Lopressor] 50 mg PO DAILY Ciprofloxacin HCl [Cipro] 500 mg PO BID Atorvastatin [Lipitor] 80 mg PO DIRECTED Discharge Medication List Aspirin 81 mg PO DAILY tab 07/15/22 [Rx] Nitroglycerin 0.4 mg SL Q5M PRN 08/12/22 [History] Apixaban [Eliquis] 5 mg PO BID 04/27/23 [History] Metoprolol Tartrate [Lopressor] 25 mg PO BID 30 Days #60 tab 04/30/23 [Rx] Follow up Appointment(s)/Referral(s): Rainer Vazquez MD [STAFF PHYSICIAN] - 1 Week Hayden Davis DO [Primary Care Provider] - 1-2 days Discharge Disposition: HOME SELF-CARE
--- NOTE | 2023-04-30 14:56 | P.PN ---
Subjective Progress Note Date: 04/30/23 Principal diagnosis: Atrial fibrillation with RVR and hypotension This is a very pleasant 52-year-old male patient with a history of morbid obesity, suspected obstructive sleep apnea, pretension, hyperlipidemia, coronary artery disease and previous stent placement, atrial fibrillation noted just 2 weeks ago during a urology procedure for kidney stones. He had been on metoprolol and Eliquis. Following his kidney stones he did develop a urinary tract infection was initiated on Cipro to be taken for 10 days which she started yesterday. Today while he was out walking to his garage he became quite lightheaded and dizzy and short of breath. He presented here to the emergency room for the same. He was found to be in atrial fibrillation with a rapid ventricular response. He had undergone cardioversion x 5 with subsequent return to normal sinus rhythm. He was initiated on amiodarone at 1 mg/min. He was given 3 L of fluid resuscitation for hypotension and is on normal saline at 130 MLS per hour. He also was requiring some norepinephrine currently at 0.04 mcg/kg/min and admitted to the intensive care unit. He is seen today in consultation. He is awake and alert in no acute distress. He is maintaining O2 saturations in the high 90s on 2 L/min per nasal cannula. He denies any worsening shortness of breath, cough or congestion. He denies any chest pain or palpitations. He is currently remaining in sinus rhythm. Chest x-ray reveals no acute cardiopulmonary process. White count 9.6. Hemoglobin 12.8. Platelets 272. Sodium 134. Potassium 4.4. Bicarb 18. BUN 48. Creatinine 1.70. Glucose 122. AST 133. ALT 110. Troponin negative x 1. TSH 1.72. Free T4 2.0. Eliquis has been continued. Reevaluated today on 04/28/2023, remains in the ICU, he is off amiodarone, still requiring 0.03 mcg/kg/min of norepinephrine, IV fluid is running at 100 cc/h. Patient is on room air, he seems to be quite comfortable, not in any distress, last night his urine output was very poor, I was notified about this patient, and I recommended 1 dose of Lasix 40 mg which was given and the patient responded well to diuretics. Patient is also on Rocephin for presumptive urinary tract infection. Overall the patient is doing great, he is in sinus rhythm, and not in any distress, amiodarone was discontinued by cardiology and will likely go on oral amiodarone today. WBC count is 5.6 hemoglobin 10.5 basic metabolic profile is normal BUN is 49 creatinine 1.52 improved compared to creatinine of 1.70 yesterday Reevaluate today on 04/29/2023, patient is now on the cardiac floor, not in any distress, his initial presentation was a presentation of A-fib with RVR, patient had synchronized cardioversion, remains in sinus rhythm. His other medical problems include history of coronary artery disease and previous stenting of LAD, obstructive sleep apnea syndrome, paroxysmal atrial fibrillation, dyslipidemia, hypertension, and history of nephrolithiasis. Patient is doing great, relatively asymptomatic, on room air, not in any distress, no active pulmonary symptoms no cough no wheezing no shortness of breath. CBC is relatively normal basic metabolic profile is normal renal profile is almost back to normal creatinine is down to 1.11 Reevaluate today on 04/30/2023, patient is doing well, no active issues, no active cardiac or pulmonary issues. Patient was evaluated yesterday by gastroenterology for his elevated liver enzymes. And he will definitely need close outpatient follow-up on his elevated liver enzymes. Apparently they have been borderline elevated in the past, and the patient never had any previous workup for elevated liver enzymes. On this admission they seem to be worse, patient has no symptoms related to his liver enzymes. Objective - Vital Signs Vital signs: Vital Signs Temp 97.7 F 04/30/23 11:05 Pulse 63 04/30/23 11:05 Resp 16 04/30/23 11:05 BP 115/78 04/30/23 11:05 Pulse Ox 98 04/30/23 11:05 FiO2 Intake & Output 04/29/23 04/30/23 04/30/23 18:59 06:59 18:59 Intake Total 330 220 Output Total 750 480 700 Balance -420 -480 -480 Intake: Oral 330 220 Output: Urine 750 480 700 Other: Voiding Method Toilet Toilet Toilet # Voids 1 - Exam General: The patient is awake and alert, in no distress, and does not appear acutely ill. On room air Skin: Skin is warm and dry and no rashes or lesions are noted. Eye: Pupils are equal, round and reactive to light, extra-ocular movements are intact; there is normal conjunctiva bilaterally. Ears, nose, mouth and throat: There are moist mucous membranes and no oral lesions. Neck: The neck is supple, there is no tenderness or JVD. Cardiovascular: There is a regular rate and rhythm. No murmur, rub or gallop is appreciated. Respiratory: Clear throughout no crackles rhonchi or wheezes Gastrointestinal: Soft, non-distended, non-tender abdomen without masses or organomegaly noted. There is no rebound or guarding present. Bowel sounds are unremarkable. Back: There is no tenderness to palpation in the midline. There is no obvious deformity. Musculoskeletal: Normal ROM, no tenderness, There is no pedal edema. There is no calf tenderness or swelling. No cords were appreciated. Neurological: CN II-XII intact, Cranial nerves III through XII are intact. There are no obvious motor or sensory deficits. Coordination appears grossly intact. Speech is normal. Psychiatric: Cooperative, appropriate mood & affect, normal judgment. - Labs CBC & Chem 7: 04/30/23 08:55 04/30/23 08:55 Labs: Abnormal Lab Results - Last 24 Hours (Table) 04/30/23 04/30/23 Range/Units 08:55 08:55 RBC 3.46 L (4.30-5.90) m/uL Hgb 10.5 L (13.0-17.5) gm/dL Hct 33.2 L (39.0-53.0) % Lymphocytes # 0.7 L (1.0-4.8) k/uL Chloride 113 H (98-107) mmol/L Carbon Dioxide 17 L (22-30) mmol/L BUN 29 H (9-20) mg/dL Glucose 100 H (74-99) mg/dL Calcium 8.1 L (8.4-10.2) mg/dL AST 300 H (17-59) U/L ALT 419 H (4-49) U/L Total Protein 5.3 L (6.3-8.2) g/dL Albumin 2.5 L (3.5-5.0) g/dL Assessment and Plan Assessment: Impression: Atrial fibrillation with RVR and hypotension requiring cardioversion x 5,, patient is presently remaining in sinus rhythm Acute urinary tract infection, patient was on Cipro on outpatient basis but now he is on Rocephin cultures are negative, and this could discontinue Rocephin History of left-sided staghorn calculus requiring percutaneous nephrostomy access and that was addressed by urology. Coronary artery disease and previous stent placement Benign essential hypertension Dyslipidemia Obesity with BMI of 46 kg/m Acute kidney injury, resolved Elevated liver enzymes, being addressed by gastroenterology Recommendation: Present supportive care measures Consider discharge planning once cleared by cardiology Cleared from our perspective for discharge plan Time with Patient: Less than 30
[2023-04-30 16:32] LABS: Alpha Fetoprotein, Tumor Mkr <3.00 ng/mL (0.00-7.90); Ceruloplasmin 33.5 mg/dL (20.0-60.0)
[2023-04-30 16:35] LABS: Hepatitis A Antibody IgM Nonreactive; Hepatitis B Core IgM Nonreactive; Hepatitis B Surface Antigen Nonreactive; Hepatitis C IgG Antibody Nonreactive
== END 2023-04-30 15:29 | disposition home or self-care (01) | DRG 308 ==
LOC: EC 11:37 → 2SICU 13:14 → 3SCARD 04-28 20:44
PROVIDERS: ADMIT Internal Medicine; ATTEND Internal Medicine
PROC: 5A2204Z Restoration of Cardiac Rhythm, Single (ICD-10-PCS; principal; 2023-04-27)
PROC: 3E043XZ Introduction of Vasopressor into Central Vein, Percutaneous Approach (ICD-10-PCS; 2023-04-27)
DX: I48.0 Paroxysmal atrial fibrillation (principal); K72.00 Acute and subacute hepatic failure without coma; N17.9 Acute kidney failure, unspecified; N39.0 Urinary tract infection, site not specified; Z68.42 Body mass index [BMI] 45.0-49.9, adult; Z79.01 Long term (current) use of anticoagulants; I95.9 Hypotension, unspecified; I49.3 Ventricular premature depolarization; R74.01 Elevation of levels of liver transaminase levels; D64.9 Anemia, unspecified; R73.03 Prediabetes; B96.20 Unspecified Escherichia coli [E. coli] as the cause of diseases classified elsewhere; Z28.310 Unvaccinated for COVID-19; Z28.21 Immunization not carried out because of patient refusal; E66.01 Morbid (severe) obesity due to excess calories; E78.5 Hyperlipidemia, unspecified; I08.1 Rheumatic disorders of both mitral and tricuspid valves; I10 Essential (primary) hypertension; I25.10 Atherosclerotic heart disease of native coronary artery without angina pectoris; K76.0 Fatty (change of) liver, not elsewhere classified; N20.0 Calculus of kidney; Z79.02 Long term (current) use of antithrombotics/antiplatelets; Z79.82 Long term (current) use of aspirin; Z79.899 Other long term (current) drug therapy; Z83.3 Family history of diabetes mellitus; Z87.442 Personal history of urinary calculi; Z95.5 Presence of coronary angioplasty implant and graft
CPT/HCPCS: 36415; 71045; 76705; 80053; 80074; 81001; 82103; 82105; 82390; 83735; 84439; 84443; 84481; 84484; 85025; 85610; 85730; 86038; 87086; 93005; 93306; 94760; 96365; 96366; 96368; 96375; 99291

== ENCOUNTER → 2023-06-08 | Outpatient (CLI) | payer OTHER ==
[2023-06-08 17:42] VITALS: BP 132/94; PULSE 53; RESP 16; TEMP 98.1
--- NOTE | 2023-06-08 17:53 | P.SLEEP ---
History of Present Illness H&P Date: 06/08/23 32-year-old male patient Presenting for a sleep apnea evaluation. The patient was referred to me by his certified diabetes educator to be evaluated for obstructive sleep apnea. The patient is known to have coronary artery disease. The patient has undergone previous coronary stenting. He has hypertension and hyperlipidemia and he has also morbid obesity and is managed to lose weight over the years. He was in the hospital back in April 2023 and he was having some neurologic procedure for kidney stones. At that time, the patient went into atrial fibrillation with rapid ventricular response. He underwent cardioversion x 5 and returned back into normal sinus rhythm. Based on that, the patient was re ferred to me for sleep apnea evaluation. His echocardiogram that was done on 04/28/2023 showed a left ventricular ejection fraction of 45 to 50%. The patient also had some moderate degree of mitral regurgitation. He has been living alone and is not sure if he does snore. 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 He is functional. No major hypersomnia or sleepiness during the day. Does not fall asleep while driving. Goes to bed at around 11 PM and wakes up 7:30 AM in the morning. He cares the same schedule over the weekends. Denies waking up choking or gasping for air. His cardiac rhythm is currently sinus. He is maximal weight has been 456 pounds and currently is down to 301 pounds with a body mass index of 41. No sleep paralysis. No hallucinations. No restlessness in lower extremities. No nighttime chest pain or shortness of breath or heartburn. No anxiety. No depression.. Does not utilize caffeinated beverages. He quit drinking alcohol approximately a year ago. No substance abuse. No head trauma. No seizure activity. No psychiatric history. No grinding of the teeth. No sleepwalking. No sleep talking. No restlessness in lower extremities. Review of Systems Constitutional: Reports weight loss Eyes: denies as per HPI, denies blurred vision, denies bulging eye, denies decreased vision, denies diplopia, denies discharge, denies dry eye, denies irritation, denies itching, denies pain, denies photophobia, denies loss of peripheral vision, denies loss of vision, denies tunnel vision/blind spots Ears: deny: decreased hearing, ear discharge, earache, tinnitus Ears, nose, mouth and throat: Reports as per HPI Breasts: absent: as per HPI, gynecomastia Cardiovascular: Reports irregular heart beat Respiratory: Reports as per HPI Gastrointestinal: Reports as per HPI Genitourinary: Reports as per HPI, Reports kidney stones Musculoskeletal: Reports as per HPI Musculoskeletal: absent: ankle pain, ankle stiffness, ankle swelling Integumentary: Reports as per HPI Neurological: Reports as per HPI Psychiatric: Reports as per HPI Endocrine: Reports as per HPI Hematologic/Lymphatic: Reports as per HPI Allergic/Immunologic: Reports as per HPI Past Medical History Past Medical History: Atrial Fibrillation, Coronary Artery Disease (CAD), Heart Failure (Mild systolic heart failure with an ejection fraction of 45% and moderate mitral regurgitation), Hypertension, Renal Disease (Kidney stones) Additional Past Medical History / Comment(s): prediabetes, Obesity History of Any Multi-Drug Resistant Organisms: None Reported Past Surgical History: Heart Catheterization With Stent Additional Past Surgical History / Comment(s): back Past Anesthesia/Blood Transfusion Reactions: No Reported Reaction Date of Last Stent Placement:: jul [address] Vazquez Past Psychological History: No Psychological Hx Reported Smoking Status: Never smoker Past Alcohol Use History: None Reported Past Drug Use History: None Reported - Past Family History Father Family Medical History: Cancer, Diabetes Mellitus Mother Family Medical History: COPD Medications and Allergies Home Medications Medication Instructions Recorded Confirmed Type Aspirin 81 mg PO DAILY tab 07/15/22 06/08/23 Rx Nitroglycerin 0.4 mg SL Q5M PRN 08/12/22 06/08/23 History Apixaban [Eliquis] 5 mg PO BID 04/27/23 06/08/23 History Metoprolol Tartrate [Lopressor] 25 mg PO BID 30 Days #60 tab 04/30/23 06/08/23 Rx Ciprofloxacin 500 mg PO BID 06/08/23 06/08/23 History Allergies Allergy/AdvReac Type Severity Reaction Status Date / Time phenobarbital AdvReac hyperactivi Verified 04/27/23 13:54 ty Physical Exam Vitals: Vital Signs Temp Pulse Resp BP Pulse Ox 06/08/23 17:07 98.1 F 53 L 16 132/94 98 Intake and Output 06/08/23 06/08/23 06/08/23 06:59 14:59 22:59 Other: Weight 136.531 kg Patient has a body mass index of 41. The patient reports cords at 7. Size of the neck is 18 inches. The patient appeared well nourished and normally developed. Vital signs as documented. Head exam is unremarkable. No scleral icterus or corneal arcus noted. Neck is without jugular venous distension, thyromegaly, or carotid bru its. Carotid upstrokes are brisk bilaterally. Lungs are clear to auscultation and percussion. Cardiac exam reveals the PMI to be normally sized and situated. Rhythm is regular. First and second heart sounds normal. No murmurs, rubs or gallops. Abdominal exam reveals normal bowel sounds, no masses, no organomegaly and no aortic enlargement. The patient has redundant abdominal pads in the pannus post weight loss. Extremities are nonedematous and both femoral and pedal pulses are normal. Examination of the skin revealed no evidence of significant rashes, suspicious appearing nevi or other concerning lesions. Neurologically, the patient is awake and alert and the patient does not have any focal neurological deficit. Cranial nerves are essentially intact. Assessment and Plan Plan: Fatigue/sleepiness, limited with an Medanales score of 7. Based on his obesity and comorbid conditions which includes PAF, the patient was requested to have a sleep evaluation to rule out underlying obstructive sleep apnea. Obesity with a BMI of 41.9. The patient has lost significant amount of weight and currently his weight is down to 301 with a maximum weight of around 450 pounds. Coronary artery disease with recent coronary intervention and stenting of the LAD Paroxysmal atrial fibrillation, the current rhythm is back to sinus post cardioversion. Mild systolic heart failure with an ejection fraction of 45% moderate degree of mitral regurgitation History of kidney stone/staghorn calculus, and the patient is status post cystoscopy placement of occluding balloon catheter left, percutaneous nephrostomy (Dr. Little) percutaneous nephrostolithotomy with ultrasound and laser, placement of 12 J nephrostomy History of urinary tract infections Plan Will set up this patient for a screening polysomnography rule out underlying obstructive sleep apnea. Encouraged further weight loss Maintain good sleep hygiene measures Maintain regular sleep schedule Control comorbidities Will follow Sleep Note - Sleep Data ESS Total: 7 - Sleep Note Sleep Note: Temperature: 98.1 F Pulse Rate: 53 Respiratory Rate: 16 Blood Pressure: 132/94 SpO2: 98 Height: 5 ft 11 in Weight: 136.531 kg BMI: Neck Circumference: 18
== END ==
LOC: 3 N SLEEP 15:17
PROVIDERS: ATTEND Internal Medicine Critical Care Medicine
DX: G47.10 Hypersomnia, unspecified (principal); R53.83 Other fatigue; E66.9 Obesity, unspecified; I25.10 Atherosclerotic heart disease of native coronary artery without angina pectoris; I48.0 Paroxysmal atrial fibrillation; I11.0 Hypertensive heart disease with heart failure; I50.20 Unspecified systolic (congestive) heart failure; I34.0 Nonrheumatic mitral (valve) insufficiency; Z68.41 Body mass index [BMI] 40.0-44.9, adult; Z87.442 Personal history of urinary calculi; Z95.828 Presence of other vascular implants and grafts; Z87.440 Personal history of urinary (tract) infections; Z95.5 Presence of coronary angioplasty implant and graft; Z79.01 Long term (current) use of anticoagulants; Z88.8 Allergy status to other drugs, medicaments and biological substances; Z79.899 Other long term (current) drug therapy
CPT/HCPCS: 99211

== ENCOUNTER → 2023-06-18 | Outpatient (CLI) | payer OTHER ==
[2023-06-19 03:12] LABS: ALT 46 U/L (10-49); AST 18 U/L (14-35); Chol/HDL Ratio 2.75 Ratio; LDL Cholesterol,Calculated 46.1 mg/dL (0.0-131.0); VLDL Calculation 14.34 mg/dL (5.00-40.00)
== END | disposition home or self-care (01) ==
LOC: LABWHC1 15:39
PROVIDERS: ATTEND Internal Medicine Interventional Cardiology
DX: I25.10 Atherosclerotic heart disease of native coronary artery without angina pectoris (principal)
CPT/HCPCS: 36415; 80061; 84450; 84460

== ENCOUNTER 2023-07-12 19:41 | Outpatient (CLI) | payer OTHER ==
--- NOTE | 2023-07-22 22:37 | P.PCN ---
Date of Procedure: 07/12/23 Operative Findings: Polysomnography report Date of service is 07/12/2023 Pertinent history This is a 53-year-old male patient presented to the sleep center for sleep apnea evaluation. Patient has been experiencing fatigue and sleepiness and the patient has an Windsor score of 7. He is obese. His comorbid conditions include PAF, coronary artery disease, mild systolic heart failure with an EF of around 45% and is also known to have kidney stones with recurrent UTIs. Pertinent physical findings The height is 5 feet and 11 inches, weight is 301 pounds and a body mass index is 42 Te Technical description The patient was studied using a standard complex polysomnography protocol that included recording of the 2 EKG, Central, occipital and frontal EEG, right and left outer canthus EOG, submental EMG, right and left anterior tibialis EMG, respiratory airflow by thermocouple and or pressure/flow transducer, respiratory efforts by abdominal and thoracic PVDF belts, oxygen saturation by cable oximetry. Position by observation synchronized the PSG. Equipment used: PATHEOS. Sleep characteristics The total recording duration was 417 minutes. The total time in sleep was 350 minutes. Overall sleep efficiency was 83.9%. The latency to sleep onset was 9 minutes. The latest REM sleep was 90 minutes. The sleep architecture was characterized by 6.6% stage I, 63.1% stage II, 10.7% stage III, 19.6% REM sleep. The latest REM sleep was 90 minutes. The total arousal index was 10.3. The wake after sleep onset time was 57.5 minutes Respiratory analysis The sleep study showed a total of 37 obstructive events of which 7 were obstructive apneas, 0 mixed apneas and 31 obstructive hypopneas and the patient's AHI was 5.3. No central apneas were noted. The patient's disease was not affected by body position. The disease was nonspecific with an AHI of 24.5 during REM sleep. Oxygenation analysis The baseline pulse ox while awake was 94%. Lowest oxygen saturation was during REM sleep at 79%. This patient spent approximately 8 minutes of sleep time below pulse ox of 89% consistent with mild oxygen desaturations Sleep continuity summary There was a total of 60 arousals with an index of 10.3. The respiratory arousal index was 2.1 Periodic limb movements No significant periodic limb movements encountered Cardiac summary Average heart rate was 46 with a minimum heart rate of 44 and a maximum heart rate of 49. No significant arrhythmias were noted. Assessment Mild obstructive sleep apnea with an AHI of 5.3, essentially occurring during REM sleep Mild nocturnal oxygen desaturation with a minimum pulse ox of 79%. Nevertheless this patient spent only 8 minutes of sleep time with a pulse ox of below 89% Obesity with a BMI of 42 PAF CAD Mild systolic heart failure with an EF of around 45% with moderate MR Hypertension Kidney stones Plan This patient is a case of mild obstructive sleep apnea. The severity of the sleep apnea has no bearing on cardiovascular outcomes. There is only mild nocturnal oxygen saturation and the respiratory events are essentially occurring during REM sleep. Overall the severity of illness is mild with an AHI of 5.3. No need for CPAP therapy. Encourage weight loss. We asked the patient to sleep on his otherwise body position. Optimize sleep hygiene measures. Will continue to follow. See me back in a years time. Will consider reevaluation should the patient's condition get worse. Otherwise, the initially treatment approach would be essentially conservative.
== END 2023-07-13 08:05 | disposition home or self-care (01) ==
LOC: 3 N SLEEP 19:41
PROVIDERS: ATTEND Internal Medicine Critical Care Medicine
DX: G47.33 Obstructive sleep apnea (adult) (pediatric) (principal); G47.36 Sleep related hypoventilation in conditions classified elsewhere; E66.9 Obesity, unspecified; I48.0 Paroxysmal atrial fibrillation; I25.10 Atherosclerotic heart disease of native coronary artery without angina pectoris; I11.0 Hypertensive heart disease with heart failure; I50.20 Unspecified systolic (congestive) heart failure; N20.0 Calculus of kidney; Z68.41 Body mass index [BMI] 40.0-44.9, adult; Z88.8 Allergy status to other drugs, medicaments and biological substances; Z79.899 Other long term (current) drug therapy; Z79.01 Long term (current) use of anticoagulants
CPT/HCPCS: 95810

== ENCOUNTER → 2023-09-07 | Outpatient (CLI) | payer OTHER ==
--- NOTE | 2023-09-07 09:48 | XR ---
EXAMINATION TYPE: XR KUB DATE OF EXAM: 09/07/2023 8:54 AM CLINICAL INDICATION:Male, 53 years old with history of N20.0 CALCULUS OF KIDNEY; r COMPARISON: 04/14/2023 TECHNIQUE: One radiographic view of the abdomen was obtained. FINDINGS: The bowel gas pattern is nonspecific without dilated loops of small or large bowel. There i s no evidence for organomegaly or pneumoperitoneum. The osseous structures are intact. Left renal c alculi measuring up to 14 mm previously this had a staghorn appearance on prior. Consultations in the pelvis are similar representing pelvic phleboliths seen on 10/02/2022 CT. Fecal material and gas are demonstrated throughout the colon and rectum. IMPRESSION: 1. Multiple left renal calculi measuring up to 14 mm previously had staghorn morphology no multiple smaller calculi visualized.. 2. Nonspecific bowel gas pattern without radiographic evidence for acute process.
== END | disposition home or self-care (01) ==
LOC: RADXRMAIN 08:42
PROVIDERS: ATTEND Urology
DX: N20.0 Calculus of kidney (principal)
CPT/HCPCS: 74018

== ENCOUNTER 2023-09-16 15:06 | Inpatient (IN) | payer OTHER ==
[2023-09-16] MEDS: ASPIRIN 81 MG PO STA (15:29)
[2023-09-16] MEDS: LORazepam 2 MG/ML INJ IV STA (15:33)
[2023-09-16] MEDS: SODIUM CHLORIDE 0.9% 500 ML 500 ML IV STA (15:34)
[2023-09-16] MEDS: ADENOSINE 3 MG/ML 2 ML VIAL IVP STA (15:35)
[2023-09-16 15:46] LABS: Basophils # (A) 0.1 k/uL (0-0.2); Basophils % (A) 1 %; Eosinophils # (A) 0.1 k/uL (0-0.7); Eosinophils % (A) 1 %; HCT 48.2 % (39.0-53.0); HGB 15.4 gm/dL (13.0-17.5); Lymphocytes # (A) 2.1 k/uL (1.0-4.8); Lymphocytes % (A) 28 %; MCH 32.2 pg (25.0-35.0); MCV 100.9 fL (80.0-100.0); Mean Platelet Volume 8.9; Monocytes # (A) 0.4 k/uL (0-1.0); Monocytes % (A) 6 %; Neutrophils # (A) 4.7 k/uL (1.3-7.7); Neutrophils % (A) 63 %; Platelet Count 213 k/uL (150-450); RBC 4.78 m/uL (4.30-5.90); RDW 12.8 % (11.5-15.5); WBC 7.4 k/uL (3.8-10.6)
[2023-09-16] MEDS: DEXTROSE 5% IN WATER 100 ML with AMIODARONE 150 MG IV ONE (15:46)
[2023-09-16 15:48] LABS: INR 0.9 (<1.2); Partial Thromboplastin Time 25.2 sec (22.0-30.0); Prothrombin Time 10.5 sec (10.0-12.5)
[2023-09-16 15:50] LABS: ALT 74 U/L (4-49); AST 46 U/L (17-59); African American GFR (CKD) >90 (>60 ml/min/1.73 sqM); Albumin 4.5 g/dL (3.5-5.0); Alkaline Phosphatase 67 U/L (38-126); Anion Gap 8 mmol/L; Blood Urea Nitrogen 18 mg/dL (9-20); Calcium 9.6 mg/dL (8.4-10.2); Carbon Dioxide 25 mmol/L (22-30); Chloride 105 mmol/L (98-107); Glucose 103 mg/dL (74-99); Magnesium 1.9 mg/dL (1.6-2.3); Non-African American GFR(CKD) >90 (>60 ml/min/1.73 sqM); Potassium 4.5 mmol/L (3.5-5.1); Sodium 138 mmol/L (137-145); Total Bilirubin 0.9 mg/dL (0.2-1.3); Total Protein 7.3 g/dL (6.3-8.2)
[2023-09-16] MEDS ORDERED: AMIODARONE 450 MG in DEXTROSE 5% IN WATER 250 ML IV SCH (16:00)
[2023-09-16] MEDS: AMIODARONE 360 MG in DEXTROSE 5% IN WATER 200 ML IV ONE ×2 (16:00→21:21)
[2023-09-16] MEDS: DILTIAZEM DRIP BOLUS FROM BAG 1 MG SOLN IV ONE (16:01)
[2023-09-16] MEDS: DILTIAZEM 125 MG in SODIUM CHLORIDE 0.9% 100 ML IV SCH (16:01)
--- NOTE | 2023-09-16 16:40 | XR ---
EXAMINATION TYPE: XR chest 1V portable DATE OF EXAM: 09/16/2023 4:10 PM CLINICAL INDICATION:Male, 53 years old with history of dysrhythmia; [facility] COMPARISON: Chest radiographs from 04/27/2023. TECHNIQUE: XR chest 1V portable Frontal view of the chest. FINDINGS: Lungs/Pleura: There is no evidence of pleural effusion, focal consolidation, or pneumothorax. Pulmonary vascularity: Unremarkable. Heart/mediastinum: Cardiomediastinal silhouette is enlarged and stable. Musculoskeletal: No acute osseous pathology. IMPRESSION: Cardiomegaly, No acute cardiopulmonary disease/process.
--- NOTE | 2023-09-16 16:43 | ED ---
Arrhythmia/Palpitations HPI - General Chief Complaint: Arrhythmia/Palpitations Stated Complaint: Afib Time Seen by Provider: 09/16/23 15:17 Source: patient Mode of arrival: ambulatory Limitations: no limitations - History of Present Illness Initial Comments: This patient is a 53-year-old man with history of previous atrial fibrillation, who states that he had been sitting with a friend and then when he attempted to get up he started to feel lightheaded and experienced palpitations. He became diaphoretic had some nausea associated. He states that there were similar symptoms to the last time that he had the atrial fibrillation which was in April of this year. He states that he was seen in the emergency department and had electrical cardioversion which did get him back into sinus rhythm and that he has been maintained on metoprolol since that time. Patient denies jaclyn chest pain. Per nursing notes there was some jaw tightness. MD Complaint: "heart racing" -: minutes(s) Context: occurred during rest Arrhythmia History: atrial fibrillation Associated Symptoms: shortness of breath, near-syncope, anxiety, diaphoresis - Related Data Home Medications Medication Instructions Recorded Confirmed Apixaban [Eliquis] 5 mg PO BID 04/27/23 09/16/23 Ascorbic Acid [Vitamin C] 500 mg PO DAILY 09/16/23 09/16/23 Atorvastatin [Lipitor] 20 mg PO DAILY 09/16/23 09/16/23 Clopidogrel [Plavix] 75 mg PO DAILY 09/16/23 09/16/23 Vitamin D3(Unknown Dose) 1 tab PO DAILY 09/16/23 09/16/23 Previous Rx's Medication Instructions Recorded Metoprolol Tartrate [Lopressor] 25 mg PO BID 30 Days #60 tab 04/30/23 Amiodarone [Cordarone] 400 mg PO BID #60 tab 09/18/23 Dapagliflozin Propanediol [Farxiga] 10 mg PO DAILY 30 Days #30 tab 09/18/23 Allergies Allergy/AdvReac Type Severity Reaction Status Date / Time phenobarbital AdvReac hyperactivi Verified 09/16/23 16:20 ty Review of Systems ROS Statement: Those systems with pertinent positive or pertinent negative responses have been documented in the HPI. ROS Other: All systems not noted in ROS Statement are negative. Constitutional: Denies: fever, chills, weakness Respiratory: Reports: dyspnea. Denies: cough Cardiovascular: Reports: palpitations. Denies: chest pain, orthopnea, edema, syncope Gastrointestinal: Reports: nausea. Denies: abdominal pain, vomiting, diarrhea Genitourinary: Denies: dysuria, hematuria Musculoskeletal: Denies: back pain Skin: Denies: rash Neurological: Denies: headache, weakness, numbness Psychiatric: Reports: anxiety Past Medical History Past Medical History: Atrial Fibrillation, Coronary Artery Disease (CAD), Heart Failure, Hypertension, Renal Disease Additional Past Medical History / Comment(s): prediabetes, Obesity History of Any Multi-Drug Resistant Organisms: None Reported Past Surgical History: Heart Catheterization With Stent Additional Past Surgical History / Comment(s): back, kidney stones Past Anesthesia/Blood Transfusion Reactions: No Reported Reaction Date of Last Stent Placement:: jul [address] Vazquez Past Psychological History: No Psychological Hx Reported Smoking Status: Never smoker Past Alcohol Use History: None Reported Past Drug Use History: None Reported - Past Family History Father Family Medical History: Cancer, Diabetes Mellitus Mother Family Medical History: COPD General Exam Limitations: no limitations General appearance: alert, in no apparent distress Head exam: Present: atraumatic, normocephalic Eye exam: Present: normal appearance. Absent: scleral icterus, conjunctival injection ENT exam: Present: normal oropharynx Neck exam: Present: normal inspection Respiratory exam: Present: normal lung sounds bilaterally. Absent: respiratory distress, wheezes, rales, rhonchi, stridor, accessory muscle use Cardiovascular Exam: Present: tachycardia. Absent: systolic murmur, diastolic m urmur, rubs, gallop GI/Abdominal exam: Present: soft. Absent: distended, tenderness, guarding, rebound, rigid, mass Extremities exam: Present: normal inspection, normal capillary refill. Absent: pedal edema, calf tenderness Back exam: Present: normal inspection. Absent: CVA tenderness (R), CVA tenderness (L) Neurological exam: Present: alert Skin exam: Present: intact, diaphoretic, pallor. Absent: rash Course Vital Signs 09/16/23 09/16/23 09/16/23 15:07 15:20 15:30 Temperature 97.9 F Pulse Rate 180 H 235 H 231 H Respiratory 18 21 Rate Blood Pressure 83/68 127/83 O2 Sat by Pulse 95 97 Oximetry 09/16/23 09/16/23 09/16/23 15:57 16:00 16:10 Temperature Pulse Rate 115 H 121 H 117 H Respiratory 21 22 Rate Blood Pressure 103/86 105/91 O2 Sat by Pulse 98 100 Oximetry 09/16/23 09/16/23 09/16/23 16:20 16:30 17:00 Temperature Pulse Rate 118 H 117 H 117 H Respiratory 22 18 Rate Blood Pressure 105/84 105/84 113/79 O2 Sat by Pulse 98 94 L Oximetry 09/16/23 09/16/23 09/16/23 17:30 18:00 18:30 Temperature Pulse Rate 128 H 123 H 146 H Respiratory 15 16 17 Rate Blood Pressure 94/56 119/82 117/70 O2 Sat by Pulse 94 L 96 Oximetry 09/16/23 09/16/23 09/16/23 19:00 20:27 21:24 Temperature 97.4 F L 98.4 F Pulse Rate 125 H 113 H 138 H Respiratory 20 16 18 Rate Blood Pressure 102/75 99/70 125/76 O2 Sat by Pulse 98 96 96 Oximetry EKG Findings - Dysrhythmias: Sinus rhythms and dysrhythmias: sinus tachycardia (Rate is approximately 121 bpm) Supraventricular dysrhythmia: atrial flutter Medical Decision Making - Medical Decision Making Case discussed with admitting physician and also with cardiology consultatant and their treatment recommendations are incorporated. Was pt. sent in by a medical professional or institution (DOUGLAS Aponte, MANAGER [employer], urgent care, hospital, or correction...) When possible be specific @ -[No] Did you speak to anyone other than the patient for history (EMS, parent, family, police, friend...)? What history was obtained from this source @ -[No] Did you review nursing and triage notes (agree or disagree)? Why? @ -[I reviewed and agree with nursing and triage notes] Were old charts reviewed (outside hosp., previous admission, EMS record, old EKG, old radiological studies, urgent care reports/EKG's, correction records)? Report findings @ -[No old charts were reviewed] Differential Diagnosis (chest pain, altered mental status, abdominal pain women, abdominal pain men, vaginal bleeding, weakness, fever, dyspnea, syncope, headache, dizziness, GI bleed, back pain, seizure, CVA, palpatations, mental health, musculoskeletal)? @ -[Differential Palpitations Ventricular arrhythmias, atrial arrhythmias, myocardial infarction, anemia, thyrotoxicosis, electrolyte imbalance, hypokalemia, pulmonary embolism, pulmonary disease, drugs, alcohol, anxiety, stress.... This is not meant to be an all-inclusive list. EKG interpreted by me (3pts min.). @ -[I interpreted as above] X-rays interpreted by me (1pt min.). @ -[None done] CT interpreted by me (1pt min.). @ -[None done] U/S interpreted by me (1pt. min.). @ -[None done] What testing was considered but not performed or refused? (CT, X-rays, U/S, labs)? Why? @ -[None] What meds were considered but not given or refused? Why? @ -[None] Did you discuss the management of the patient with other professionals (professionals i.e. , PA, MANAGER GREEN, lab, RT, psych nurse, social psychologist, field operations farm manager, teacher, surface to air weapons officer, casework supervisor)? Give summary @ -[Case discussed with admitting physician and with cardiology on-call and treatment recommendations are incorporated Was smoking cessation discussed for >3mins.? @ -[No] Was critical care preformed (if so, how long)? @ -[Yes, 35 minutes Were there social determinants of health that impacted care today? How? (Homelessness, low income, unemployed, alcoholism, drug addiction, transportation, low edu. Level, literacy, decrease access to med. care, fpc, rehab)? @ -[No] Was there de-escalation of care discussed even if they declined (Discuss DNR or withdrawal of care, Hospice)? DNR status @ -[No] What co-morbidities impacted this encounter? (DM, HTN, Smoking, COPD, CAD, Cancer, CVA, ARF, Chemo, Hep., AIDS, mental health diagnosis, sleep apnea, morbid obesity)? @ -[History of previous atrial fibrillation Was patient admitted / discharged? Hospital course, mention meds given and route, prescriptions, significant lab abnormalities, going to OR and other pertinent info. @ -[Patient's 53-year-old man presenting with palpitations and found to be in probable atrial fibrillation. The patient started on medication here but remains in rapid rate, will admit to see cardiology, have serial cardiac enzymes, echocardiogram. Undiagnosed new problem with uncertain prognosis? @ -[No] Drug Therapy requiring intensive monitoring for toxicity (Heparin, Nitro, Insulin, Cardizem)? @ -[Amiodarone, intravenous Were any procedures done? @ -[No] Diagnosis/symptom? @ -[Atrial flutter with rapid ventricular rate Acute, or Chronic, or Acute on Chronic? @ -[Acute Uncomplicated (without systemic symptoms) or Complicated (systemic symptoms)? @ -[Uncomplicated Side effects of treatment? @ -[No] Exacerbation, Progression, or Severe Exacerbation? @ -[No] Poses a threat to life or bodily function? How? (Chest pain, [place], [place], pneumonia, PE, COPD, DKA, ARF, appy, cholecystitis, CVA, Diverticulitis, Homicidal, Suicidal, threat to staff... and all critical care pts) @ -[Yes - Lab Data Result diagrams: 09/18/23 11:26 09/18/23 11:26 Lab Results 09/16/23 09/16/23 09/16/23 Range/Units 14:58 15:27 15:27 WBC 7.4 (3.8-10.6) k/uL RBC 4.78 (4.30-5.90) m/uL Hgb 15.4 (13.0-17.5) gm/dL Hct 48.2 (39.0-53.0) % MCV 100.9 H (80.0-100.0) fL MCH 32.2 (25.0-35.0) pg MCHC 32.0 (31.0-37.0) g/dL RDW 12.8 (11.5-15.5) % Plt Count 213 (150-450) k/uL MPV 8.9 Neutrophils % 63 % Lymphocytes % 28 % Monocytes % 6 % Eosinophils % 1 % Basophils % 1 % Neutrophils # 4.7 (1.3-7.7) k/uL Lymphocytes # 2.1 (1.0-4.8) k/uL Monocytes # 0.4 (0-1.0) k/uL Eosinophils # 0.1 (0-0.7) k/uL Basophils # 0.1 (0-0.2) k/uL PT 10.5 (10.0-12.5) sec INR 0.9 (<1.2) APTT 25.2 (22.0-30.0) sec Sodium (137-145) mmol/L Potassium (3.5-5.1) mmol/L Chloride (98-107) mmol/L Carbon Dioxide (22-30) mmol/L Anion Gap mmol/L BUN (9-20) mg/dL Creatinine (0.66-1.25) mg/dL Est GFR (CKD-EPI)AfAm (>60 ml/min/1.73 sqM) Est GFR (CKD-EPI)NonAf (>60 ml/min/1.73 sqM) Glucose (74-99) mg/dL Calcium (8.4-10.2) mg/dL Magnesium (1.6-2.3) mg/dL Total Bilirubin (0.2-1.3) mg/dL AST (17-59) U/L ALT (4-49) U/L Alkaline Phosphatase (38-126) U/L Troponin I (0.000-0.034) ng/mL Total Protein (6.3-8.2) g/dL Albumin (3.5-5.0) g/dL Triglycerides 96.30 (0.00-149.00) mg/dL Cholesterol 85.00 (0.00-200.00) mg/dL LDL Cholesterol, Calc 27.2 (0.0-131.0) mg/dL VLDL Cholesterol, Calc 19.26 (5.00-40.00) mg/dL HDL Cholesterol 38.50 L (40.00-60.00) mg/dL Cholesterol/HDL Ratio 2.21 Ratio TSH (0.465-4.680) mIU/L 09/16/23 09/16/23 Range/Units 15:27 15:27 WBC (3.8-10.6) k/uL RBC (4.30-5.90) m/uL Hgb (13.0-17.5) gm/dL Hct (39.0-53.0) % MCV (80.0-100.0) fL MCH (25.0-35.0) pg MCHC (31.0-37.0) g/dL RDW (11.5-15.5) % Plt Count (150-450) k/uL MPV Neutrophils % % Lymphocytes % % Monocytes % % Eosinophils % % Basophils % % Neutrophils # (1.3-7.7) k/uL Lymphocytes # (1.0-4.8) k/uL Monocytes # (0-1.0) k/uL Eosinophils # (0-0.7) k/uL Basophils # (0-0.2) k/uL PT (10.0-12.5) sec INR (<1.2) APTT (22.0-30.0) sec Sodium 138 (137-145) mmol/L Potassium 4.5 (3.5-5.1) mmol/L Chloride 105 (98-107) mmol/L Carbon Dioxide 25 (22-30) mmol/L Anion Gap 8 mmol/L BUN 18 (9-20) mg/dL Creatinine 0.90 (0.66-1.25) mg/dL Est GFR (CKD-EPI)AfAm >90 (>60 ml/min/1.73 sqM) Est GFR (CKD-EPI)NonAf >90 (>60 ml/min/1.73 sqM) Glucose 103 H (74-99) mg/dL Calcium 9.6 (8.4-10.2) mg/dL Magnesium 1.9 (1.6-2.3) mg/dL Total Bilirubin 0.9 (0.2-1.3) mg/dL AST 46 (17-59) U/L ALT 74 H (4-49) U/L Alkaline Phosphatase 67 (38-126) U/L Troponin I <0.012 (0.000-0.034) ng/mL Total Protein 7.3 (6.3-8.2) g/dL Albumin 4.5 (3.5-5.0) g/dL Triglycerides (0.00-149.00) mg/dL Cholesterol (0.00-200.00) mg/dL LDL Cholesterol, Calc (0.0-131.0) mg/dL VLDL Cholesterol, Calc (5.00-40.00) mg/dL HDL Cholesterol (40.00-60.00) mg/dL Cholesterol/HDL Ratio Ratio TSH 3.420 (0.465-4.680) mIU/L Disposition Clinical Impression: Atrial fibrillation with RVR Disposition: ADMITTED IP TO THIS HOSP Condition: Good Is patient prescribed a controlled substance at d/c from ED?: No
[2023-09-16] MEDS ORDERED: NITROGLYCERIN SL TABS 0.4 MG TAB SUBLINGUAL PRN (17:53)
[2023-09-16] MEDS: METOPROLOL TARTRATE 50 MG TAB PO STA (20:51)
[2023-09-16] MEDS: SODIUM CHLORIDE 0.9% 1,000 ML IV SCH (21:21)
[2023-09-16] MEDS: APIXABAN 5 MG TAB PO SCH (21:21)
[2023-09-16] MEDS: METOPROLOL TARTRATE 25 MG TAB PO STA (21:22)
[2023-09-16 21:25] LABS: Amphetamine Screen,Urine Not Detected (NotDetected); Barbiturate Screen,Urine Not Detected (NotDetected); Benzodiazepines Screen,Urine Detected (NotDetected); Cocaine Screen,Urine Not Detected (NotDetected); Methadone Screen, Urine Not Detected (NotDetected); Opiate Screen,Urine Detected (NotDetected); Oxycodone Screen, Urine Not Detected (NotDetected); Phencyclidine Screen,Urine Not Detected (NotDetected); Tricyclic Antidepressant,Urine Not Detected (NotDetected); Urn Cannabinoid Scrn Not Detected (NotDetected)
[2023-09-16] MEDS: METOPROLOL TARTRATE 25 MG TAB PO SCH (21:27)
[2023-09-17] MEDS: AMIODARONE 450 MG in DEXTROSE 5% IN WATER 250 ML IV SCH (02:04)
[2023-09-17] MEDS: ATORVASTATIN 20 MG TAB PO SCH (08:12)
[2023-09-17] MEDS: CLOPIDOGREL 75 MG TAB PO SCH (08:13)
[2023-09-17 08:55] LABS: Chol/HDL Ratio 2.21 Ratio; LDL Cholesterol,Calculated 27.2 mg/dL (0.0-131.0); VLDL Calculation 19.26 mg/dL (5.00-40.00)
[2023-09-17] MEDS ORDERED: CLOPIDOGREL 75 MG TAB PO SCH (09:00)
--- NOTE | 2023-09-17 12:26 | P.CRDCN ---
History of Present Illness Consult date: 09/17/23 Reason for Consult (text): Supraventricular tachycardia History of present illness: This is a 53-year-old male patient of Dr. DAVIDE Vazquez with past medical history of coronary disease with stenting of the LAD 11/01/2022 with there was plaque ruptu re good result, morbid obesity, obstructive sleep, paroxysmal atrial fibrillation on Eliquis, hyperlipidemia, hypertension, kidney stones. We have been asked to evaluate the patient for supraventricular tachycardia. Patient presented to the ER with heart rate [id number], initial blood pressure 83/68 Blood pressure 129/84, heart rate 70, pulse ox 100% on room air. Patient is status post 500 cc IV fluid bolus, adenosine 12 mg IV push x 1, amiodarone drip. Patient was last seen in the office on 06/23/2023 at which time he was in a sinus rhythm. EKG #1 , #2 SVT at 227 bpm, #3 atrial fibrillation at 111 bpm Chest x-ray: Cardiomegaly. No acute process Laboratory studies: WBC 7.4, hemoglobin 15.4. Sodium 138, potassium 4.5, creatinine 0.91. Troponins 0.012, 0.497, 1.2. TSH 3.42. Urine drug screen positive for opiates and benzodiazepines. Home cardiac medications: Eliquis 5 mg twice daily, atorvastatin 20 mg daily, Plavix 75 mg daily, metoprolol tartrate 25 mg twice daily. Cardiac catheterization 07/13/2022 revealed mildly elevated filling pressures, no gradient across the valve, no disease in RCA, LM or ramus, distal RCA with some dilation suggestive of inflammatory disease. LAD with 80% plaque rupture status post PCI of the LAD. Echocardiogram performed 04/28/2023 revealed EF of 45 to 50%, septal bounce noted, RVSP 38, moderate MR. No pericardial effusion. Exercise tolerance test performed 08/25/2022 walked for 2 and half minutes with heart rate 132, rare isolated PVCs, no angina, poor conditioning noted. Inconclusive stress test because of an adequate chronotropic response. 04/27/2023 synchronized cardioversion in the emergency center at [facility] for atrial fibrillation successfully converted to sinus rhythm Review Of Systems: At the time of my exam: CONSTITUTIONAL: Denies fever or chills. HEENT: Denies blurred vision, vision changes, or eye pain. Denies hemoptysis CARDIOVASCULAR: Denies chest pain. Denies orthopnea. Denies PND. + palpitations + lightheadedness RESPIRATORY: + shortness of breath. GASTROINTESTINAL: Denies abdominal pain. Denies nausea or vomiting. HEMATOLOGIC: Denies bleeding disorders. GENITOURINARY: Denies any blood in urine. SKIN: Denies pruitis. Denies rash. Physical examination: Gen: This is a morbidly obese 53-year-old male. He appears to be in no acute distress VS: reviewed HEENT: Head is atraumatic, normocephalic. Pupils equal, round. Sclerae is anicteric. NECK: Supple. No JVD. LUNGS: Clear to auscultation. No wheezes or rhonchi. No intercostal retractions. HEART: Regular rate and rhythm. No murmur. ABDOMEN: Soft No tenderness. EXTREMITIES: No pedal edema. No calf tenderness. NEUROLOGICAL: Patient is awake, alert and oriented x3. Assessment: Supraventricular tachycardia A-fib with RVR status post synchronized cardioversion, currently in sinus rhythm Coronary artery disease with previous stenting of the LAD Obstructive sleep apnea Paroxysmal atrial fibrillation on Eliquis Hyperlipidemia Hypertension Kidney stones Morbid obesity with BMI of 45 Plan: Continue patient's home cardiac medications Continue patient on amiodarone drip No need to repeat echocardiogram as this was done in April Further recommendations to follow based upon clinical course Thank you kindly for this consultation. Nurse practitioner note has been reviewed, I agree with documented findings and plan of care. Patient was seen and examined. Past Medical History Past Medical History: Atrial Fibrillation, Coronary Artery Disease (CAD), Heart Failure, Hypertension, Renal Disease Additional Past Medical History / Comment(s): prediabetes, Obesity History of Any Multi-Drug Resistant Organisms: None Reported Past Surgical History: Heart Catheterization With Stent Additional Past Surgical History / Comment(s): back, kidney stones Past Anesthesia/Blood Transfusion Reactions: No Reported Reaction Date of Last Stent Placement:: jul [address] Vazquez Past Psychological History: No Psychological Hx Reported Smoking Status: Never smoker Past Alcohol Use History: None Reported Past Drug Use History: None Reported - Past Family History Father Family Medical History: Cancer, Diabetes Mellitus Mother Family Medical History: COPD Medications and Allergies Home Medications Medication Instructions Recorded Confirmed Type Apixaban [Eliquis] 5 mg PO BID 04/27/23 09/16/23 History Metoprolol Tartrate [Lopressor] 25 mg PO BID 30 Days #60 tab 04/30/23 09/16/23 Rx Ascorbic Acid [Vitamin C] 500 mg PO DAILY 09/16/23 09/16/23 History Atorvastatin [Lipitor] 20 mg PO DAILY 09/16/23 09/16/23 History Clopidogrel [Plavix] 75 mg PO DAILY 09/16/23 09/16/23 History Vitamin D3(Unknown Dose) 1 tab PO DAILY 09/16/23 09/16/23 History Allergies Allergy/AdvReac Type Severity Reaction Status Date / Time phenobarbital AdvReac hyperactivi Verified 09/16/23 16:20 ty Physical Exam Vitals: Vital Signs Temp Pulse Pulse Resp BP BP Pulse Ox 09/17/23 08:09 97.7 F 70 17 129/84 100 09/17/23 03:27 98.1 F 62 16 121/83 98 09/17/23 00:00 73 16 94/56 98 09/16/23 22:00 98.0 F 144 H 18 92/64 98 09/16/23 21:24 138 H 18 125/76 96 09/16/23 20:27 98.4 F 113 H 16 99/70 96 09/16/23 19:00 97.4 F L 125 H 20 102/75 98 09/16/23 18:30 146 H 17 117/70 96 09/16/23 18:00 123 H 16 119/82 94 L 09/16/23 17:30 128 H 15 94/56 09/16/23 17:00 117 H 18 113/79 94 L 09/16/23 16:30 117 H 105/84 09/16/23 16:20 118 H 22 105/84 98 09/16/23 16:10 117 H 22 105/91 100 09/16/23 16:00 121 H 21 103/86 98 09/16/23 15:57 115 H 09/16/23 15:30 231 H 21 127/83 97 09/16/23 15:20 235 H 09/16/23 15:07 97.9 F 180 H 18 83/68 95 Intake and Output 09/16/23 09/17/23 09/17/23 22:59 06:59 14:59 Intake Total 10 Output Total 1000 Balance -990 Intake: IV 10 Invasive Line 1 10 Output: Urine 1000 Other: Voiding Method Toilet Toilet # Voids 1 Weight 124.284 kg Results 09/16/23 15:27 09/16/23 15:27 Cardiac Enzymes 09/16/23 09/16/23 09/16/23 Range/Units 15:27 15: 19:05 AST 46 (17-59) U/L Troponin I <0.012 0.497 H* (0.000-0.034) ng/mL 09/16/23 Range/Units 22:25 AST (17-59) U/L Troponin I 1.200 H* (0.000-0.034) ng/mL Coagulation 09/16/23 Range/Units 15: PT 10.5 (10.0-12.5) sec APTT 25.2 (22.0-30.0) sec CBC 09/16/23 Range/Units 15: WBC 7.4 (3.8-10.6) k/uL RBC 4.78 (4.30-5.90) m/uL Hgb 15.4 (13.0-17.5) gm/dL Hct 48.2 (39.0-53.0) % Plt Count 213 (150-450) k/uL Comprehensive Metabolic Panel 09/16/23 Range/Units 15:27 Sodium 138 (137-145) mmol/L Potassium 4.5 (3.5-5.1) mmol/L Chloride 105 (98-107) mmol/L Carbon Dioxide 25 (22-30) mmol/L BUN 18 (9-20) mg/dL Creatinine 0.90 (0.66-1.25) mg/dL Glucose 103 H (74-99) mg/dL Calcium 9.6 (8.4-10.2) mg/dL AST 46 (17-59) U/L ALT 74 H (4-49) U/L Alkaline Phosphatase 67 (38-126) U/L Total Protein 7.3 (6.3-8.2) g/dL Albumin 4.5 (3.5-5.0) g/dL Current Medications Generic Name Dose Route Start Last Admin Trade Name Freq PRN Reason Stop Dose Admin Apixaban 5 mg 09/16/23 21:00 09/17/23 08:13 Apixaban 5 Mg Tab PO 5 mg BID RILEY Administration Protocol Atorvastatin Calcium 20 mg 09/17/23 09:00 09/17/23 08:12 Atorvastatin 20 Mg Tab PO 20 mg DAILY RILEY Administration Clopidogrel Bisulfate 75 mg 09/17/23 09:00 09/17/23 08:13 Clopidogrel 75 Mg Tab PO 75 mg DAILY RILEY Administration Sodium Chloride 1,000 mls @ 100 mls/hr 09/16/23 18:00 09/17/23 03:14 Saline 0.9% IV Not Given .Q10H RILEY Amiodarone HCl 450 mg/ 250 mls @ 16.667 mls/hr 09/16/23 20:45 09/17/23 02:04 Dextrose/Water IV 09/17/23 14:44 0.5 mg/min .Q15H RILEY 16.667 mls/hr Administration Protocol 0.5 MG/MIN Metoprolol Tartrate 25 mg 09/16/23 21:00 09/17/23 08:13 Metoprolol Tartrate 25 Mg Tab PO 25 mg BID RILEY Administration Nitroglycerin 0.4 mg 09/16/23 17:53 Nitroglycerin Sl Tabs 0.4 Mg Tab SUBLINGUAL Q5M PRN Chest Pain Intake and Output 09/16/23 09/17/23 09/17/23 22:59 06:59 14:59 Intake Total 10 Output Total 1000 Balance -990 Intake: IV 10 Invasive Line 1 10 Output: Urine 1000 Other: Voiding Method Toilet Toilet # Voids 1 Weight 124.284 kg 09/16/23 15:27 09/16/23 15:27
[2023-09-17] MEDS ORDERED: NITROGLYCERIN SL TABS 0.4 MG TAB SUBLINGUAL PRN (12:37)
[2023-09-17] MEDS ORDERED: ALPRAZolam 0.5 MG TAB PO PRN (12:37)
[2023-09-17] MEDS ORDERED: ALPRAZolam 0.25 MG TAB PO PRN (12:37)
[2023-09-17] MEDS ORDERED: VERAPAMIL 2.5 MG/ML 2 ML AMP ONE (12:44)
[2023-09-17] MEDS ORDERED: fentaNYL (PF) 50 MCG/ML 2 ML AMP ONE (12:45)
[2023-09-17] MEDS ORDERED: HEPARIN SODIUM 1,000 UN/ML (10ML VL) ONE (12:45)
[2023-09-17] MEDS ORDERED: LIDOCAINE 1% INJ 10MG/ML (20 ML MDV) ONE (12:45)
[2023-09-17] MEDS: ASPIRIN 325 MG TAB PO STA (12:50)
[2023-09-17] MEDS: ATORVASTATIN 80 MG TAB PO STA (12:50)
[2023-09-17] MEDS: IV FLUID CONTINUATION 1,000 ML IV ONE (13:05)
--- NOTE | 2023-09-17 13:18 | P.CRDCN ---
History of Present Illness Consult date: 09/17/23 History of present illness: This is a 53-year-old male patient of Dr. DAVIDE Vazquez with past medical history of coronary disease with stenting of the LAD 11/01/2022 with there was plaque rupture good result, morbid obesity, mild obstructive sleep apnea not requiring CPAP, paroxysmal atrial fibrillation on Eliquis, hyperlipidemia, hypertension, kidney stones. We have been asked to evaluate the patient for supraventricular tachycardia. Patient presented to the ER with heart rate [id number], initial blood pressure 83/68. He states that he stood up and developed rapid heart rate. He felt a flushing in his face yesterday but no chest pain. Blood pressure now 129/84, heart rate 70, pulse ox 100% on room air. Patient is status post 500 cc IV fluid bolus, adenosine 12 mg IV push x 1, amiodarone drip. Patient was last seen in the office on 06/23/2023 at which time he was in a sinus rhythm. After adenosine, heart rate slowed and he was in atrial fibrillation. Patient was started on amiodarone drip and remains on that now. Discussed option of [facility] due to elevated troponins and he is agreeable to move forward. EKG #1 atrial fibrillation, #2 atrial fibrillation at 227 bpm, #3 atrial fibrillation at 111 bpm Chest x-ray: Cardiomegaly. No acute process Laboratory studies: WBC 7.4, hemoglobin 15.4. Sodium 138, potassium 4.5, creatinine 0.91. Troponins 0.012, 0.497, 1.2. TSH 3.42. Urine drug screen positive for opiates and benzodiazepines. Home cardiac medications: Eliquis 5 mg twice daily, atorvastatin 20 mg daily, Plavix 75 mg daily, metoprolol tartrate 25 mg twice daily. Cardiac catheterization 07/13/2022 revealed mildly elevated filling pressures, no gradient across the valve, no disease in RCA, LM or ramus, distal RCA with some dilation suggestive of inflammatory disease. LAD with 80% plaque rupture status post PCI of the LAD. Echocardiogram performed 04/28/2023 revealed EF of 45 to 50%, septal bounce noted, RVSP 38, moderate MR. No pericardial effusion. Exercise tolerance test performed 08/25/2022 walked for 2 and half minutes with heart rate 132, rare isolated PVCs, no angina, poor conditioning noted. Inconclusive stress test because of an adequate chronotropic response. 04/27/2023 synchronized cardioversion in the emergency center at [facility] for atrial fibrillation successfully converted to sinus rhythm Review Of Systems: At the time of my exam: CONSTITUTIONAL: Denies fever or chills. HEENT: Denies blurred vision, vision changes, or eye pain. Denies hemoptysis CARDIOVASCULAR: Denies chest pain. Denies orthopnea. Denies PND. + palpitations + lightheadedness RESPIRATORY: + shortness of breath. GASTROINTESTINAL: Denies abdominal pain. Denies nausea or vomiting. HEMATOLOGIC: Denies bleeding disorders. GENITOURINARY: Denies any blood in urine. SKIN: Denies pruitis. Denies rash. Physical examination: Gen: This is a morbidly obese 53-year-old male. He appears to be in no acute distress VS: reviewed HEENT: Head is atraumatic, normocephalic. Pupils equal, round. Sclerae is anicteric. NECK: Supple. No JVD. LUNGS: Clear to auscultation. No wheezes or rhonchi. No intercostal retractions. HEART: Irregular rate and rhythm. No murmur. ABDOMEN: Soft No tenderness. EXTREMITIES: No pedal edema. No calf tenderness. NEUROLOGICAL: Patient is awake, alert and oriented x3. Assessment: Paroxysmal A-fib presenting with RVR Elevated troponin with possible non-ST elevated myocardial infarction Coronary artery disease with previous stenting of the LAD Hyperlipidemia Hypertension Kidney stones Morbid obesity with previous BMI of 45 s/p loss of 180 pounds Plan: Continue patient's home cardiac medications Continue patient on amiodarone drip Echocardiogram Patient will be scheduled for cardiac catheterization with Dr. Rutledge today N.p.o. Further recommendations to follow based upon clinical course Thank you kindly for this consultation. Nurse practitioner note has been reviewed, I agree with documented findings and plan of care. Patient was seen and examined. Past Medical History Past Medical History: Atrial Fibrillation, Coronary Artery Disease (CAD), Heart Failure, Hypertension, Renal Disease Additional Past Medical History / Comment(s): prediabetes, Obesity History of Any Multi-Drug Resistant Organisms: None Reported Past Surgical History: Heart Catheterization With Stent Additional Past Surgical History / Comment(s): back, kidney stones Past Anesthesia/Blood Transfusion Reactions: No Reported Reaction Date of Last Stent Placement:: jul [address] Vazquez Past Psychological History: No Psychological Hx Reported Smoking Status: Never smoker Past Alcohol Use History: None Reported Past Drug Use History: None Reported - Past Family History Father Family Medical History: Cancer, Diabetes Mellitus Mother Family Medical History: COPD Medications and Allergies Home Medications Medication Instructions Recorded Confirmed Type Apixaban [Eliquis] 5 mg PO BID 04/27/23 09/16/23 History Metoprolol Tartrate [Lopressor] 25 mg PO BID 30 Days #60 tab 04/30/23 09/16/23 Rx Ascorbic Acid [Vitamin C] 500 mg PO DAILY 09/16/23 09/16/23 History Atorvastatin [Lipitor] 20 mg PO DAILY 09/16/23 09/16/23 History Clopidogrel [Plavix] 75 mg PO DAILY 09/16/23 09/16/23 History Vitamin D3(Unknown Dose) 1 tab PO DAILY 09/16/23 09/16/23 History Allergies Allergy/AdvReac Type Severity Reaction Status Date / Time phenobarbital AdvReac hyperactivi Verified 09/16/23 16:20 ty Physical Exam Vitals: Vital Signs Temp Pulse Pulse Resp BP BP Pulse Ox 09/17/23 11:44 64 17 109/72 98 09/17/23 08:09 97.7 F 70 17 129/84 100 09/17/23 03:27 98.1 F 62 16 121/83 98 09/17/23 00:00 73 16 94/56 98 09/16/23 22:00 98.0 F 144 H 18 92/64 98 09/16/23 21:24 138 H 18 125/76 96 09/16/23 20:27 98.4 F 113 H 16 99/70 96 09/16/23 19:00 97.4 F L 125 H 20 102/75 98 09/16/23 18:30 146 H 17 117/70 96 09/16/23 18:00 123 H 16 119/82 94 L 09/16/23 17:30 128 H 15 94/56 09/16/23 17:00 117 H 18 113/79 94 L 09/16/23 16:30 117 H 105/84 09/16/23 16:20 118 H 22 105/84 98 09/16/23 16:10 117 H 22 105/91 100 09/16/23 16:00 121 H 21 103/86 98 09/16/23 15:57 115 H 09/16/23 15:30 231 H 21 127/83 97 09/16/23 15:20 235 H 09/16/23 15:07 97.9 F 180 H 18 83/68 95 Intake and Output 09/16/23 09/17/23 09/17/23 22:59 06:59 14:59 Intake Total 10 Output Total 1000 Balance -990 Intake: IV 10 Invasive Line 1 10 Output: Urine 1000 Other: Voiding Method Toilet Toilet Toilet # Voids 1 Weight 124.284 kg Results 09/16/23 15:27 09/16/23 15:27 Cardiac Enzymes 09/16/23 09/16/23 09/16/23 Range/Units 15:27 15:27 19:05 AST 46 (17-59) U/L Troponin I <0.012 0.497 H* (0.000-0.034) ng/mL 09/16/23 Range/Units 22:25 AST (17-59) U/L Troponin I 1.200 H* (0.000-0.034) ng/mL Coagulation 09/16/23 Range/Units 15:27 PT 10.5 (10.0-12.5) sec APTT 25.2 (22.0-30.0) sec Lipids 09/16/23 Range/Units 14:58 Triglycerides 96.30 (0.00-149.00) mg/dL Cholesterol 85.00 (0.00-200.00) mg/dL HDL Cholesterol 38.50 L (40.00-60.00) mg/dL Cholesterol/HDL Ratio 2.21 Ratio CBC 09/16/23 Range/Units 15:27 WBC 7.4 (3.8-10.6) k/uL RBC 4.78 (4.30-5.90) m/uL Hgb 15.4 (13.0-17.5) gm/dL Hct 48.2 (39.0-53.0) % Plt Count 213 (150-450) k/uL Comprehensive Metabolic Panel 09/16/23 Range/Units 15:27 Sodium 138 (137-145) mmol/L Potassium 4.5 (3.5-5.1) mmol/L Chloride 105 (98-107) mmol/L Carbon Dioxide 25 (22-30) mmol/L BUN 18 (9-20) mg/dL Creatinine 0.90 (0.66-1.25) mg/dL Glucose 103 H (74-99) mg/dL Calcium 9.6 (8.4-10.2) mg/dL AST 46 (17-59) U/L ALT 74 H (4-49) U/L Alkaline Phosphatase 67 (38-126) U/L Total Protein 7.3 (6.3-8.2) g/dL Albumin 4.5 (3.5-5.0) g/dL Current Medications Generic Name Dose Route Start Last Admin Trade Name Freq PRN Reason Stop Dose Admin Apixaban 5 mg 09/16/23 21:00 09/17/23 08:13 Apixaban 5 Mg Tab PO 5 mg BID RILEY Administration Protocol Atorvastatin Calcium 20 mg 09/17/23 09:00 09/17/23 08:12 Atorvastatin 20 Mg Tab PO 20 mg DAILY RILEY Administration Clopidogrel Bisulfate 75 mg 09/17/23 09:00 09/17/23 08:13 Clopidogrel 75 Mg Tab PO 75 mg DAILY RILEY Administration Sodium Chloride 1,000 mls @ 100 mls/hr 09/16/23 18:00 09/17/23 03:14 Saline 0.9% IV Not Given .Q10H RILEY Amiodarone HCl 450 mg/ 250 mls @ 16.667 mls/hr 09/16/23 20:45 09/17/23 02:04 Dextrose/Water IV 09/17/23 14:44 0.5 mg/min .Q15H RILEY 16.667 mls/hr Administration Protocol 0.5 MG/MIN Metoprolol Tartrate 25 mg 09/16/23 21:00 09/17/23 08:13 Metoprolol Tartrate 25 Mg Tab PO 25 mg BID RILEY Administration Nitroglycerin 0.4 mg 09/16/23 17:53 Nitroglycerin Sl Tabs 0.4 Mg Tab SUBLINGUAL Q5M PRN Chest Pain Intake and Output 09/16/23 09/17/23 09/17/23 22:59 06:59 14:59 Intake Total 10 Output Total 1000 Balance -990 Intake: IV 10 Invasive Line 1 10 Output: Urine 1000 Other: Voiding Method Toilet Toilet Toilet # Voids 1 Weight 124.284 kg 09/16/23 15:27 09/16/23 15:27
[2023-09-17] MEDS: MIDAZOLAM 2 MG/2 ML VIAL IVP ONE (13:40)
[2023-09-17] MEDS: fentaNYL (PF) 50 MCG/ML 2 ML AMP IVP ONE ×2 (13:40→13:43)
[2023-09-17] MEDS: LIDOCAINE 1% INJ 10MG/ML (20 ML MDV) SQ ONE ×2 (13:41)
--- NOTE | 2023-09-17 13:46 | P.HPIM ---
History of Present Illness H&P Date: 09/17/23 History of present illness; patient 53-year-old gentleman with past medical history significant for atrial fibrillation, who presented to ER because of palpitations. Patient stated he was all right this evening when while trying to get up he became lightheaded and felt his heart was beating too fast. Patient became diaphoretic at that time. There was no complaint of chest pain. Denied any nausea or vomiting. There was no complaint of orthopnea or PND. There was no complaint of swelling of feet. Patient stated that he felt similar to that during the last time when he had an episode of A-fib with RVR. At the ayde that e patient was seen in the hospital and had electrical cardioversion done. Because of the symptoms, patient came to the ER. Initial lab work done in the ER showed WBC 10.4, hemoglobin 15.4, platelet count 213, INR 0.9, sodium 130, potassium 4.5, BUN 18, creatinine 0.90, glucose 103, magnesium 1.9, troponin 0.012 Urine drug screen positive for opioids, benzodiazepines EKG done in the ER showed heart rate of 121, no P waves seen, irregular in rhythm, ST segment depression seen in V2 for V5, no ST elevation seen, no T-wave inversions seen. Chest x-ray done in the ER cardiomegaly, no acute cardiopulmonary process Patient admitted to internal medicine service REVIEW OF SYSTEMS: CONSTITUTIONAL: No fever, no malaise, no fatigue. HEENT: No recent visual problems or hearing problems. Denied any sore throat. CARDIOVASCULAR: As mentioned above PULMONARY: As mentioned above GASTROINTESTINAL: No diarrhea, no nausea, no vomiting, no abdominal pain. NEUROLOGICAL: No headaches, no weakness, no numbness. HEMATOLOGICAL: Denies any bleeding or petechiae. GENITOURINARY: Denies any burning micturition, frequency, or urgency. MUSCULOSKELETAL/RHEUMATOLOGICAL: Denies any joint pain, swelling, or any muscle pain. ENDOCRINE: Denies any polyuria or polydipsia. The rest of the 14-point review of systems is negative. PHYSICAL EXAMINATION: GENERAL: The patient is alert and oriented x3, not in any acute distress. Well developed, well nourished. HEENT: Pupils are round and equally reacting to light. EOMI. No scleral icterus. No conjunctival pallor. Normocephalic, atraumatic. No pharyngeal erythema. No thyromegaly. CARDIOVASCULAR: S1 and S2 present. No murmurs, rubs, or gallops. PULMONARY: Chest is clear to auscultation, no wheezing or crackles. ABDOMEN: Soft, nontender, nondistended, normoactive bowel sounds. No palpable organomegaly. MUSCULOSKELETAL: No joint swelling or deformity. EXTREMITIES: No cyanosis, clubbing, or pedal edema. NEUROLOGICAL: Gross neurological examination did not reveal any focal deficits. SKIN: No rashes. Assessment and plan Atrial fibrillation with RVR Elevated troponin Coronary artery disease with previous stenting of the LAD Obstructive sleep apnea Paroxysmal atrial fibrillation on Eliquis Hyperlipidemia Hypertension Monitor vital signs Monitor CBC Monitor CMP Continue telemetry monitoring Trend troponins. Started amiodarone drip Resume Eliquis Resume home meds Consult cardiology Labs and medication were reviewed.. Continue same treatment. Continue with symptomatic treatment. Resume home medication. Monitor labs and vitals. DVT and GI prophylaxis. Further recommendations as per clinical course of the patient Dictation was produced using [employer] dictation software. please excuse any grammatical, word or spelling errors. Past Medical History Past Medical History: Atrial Fibrillation, Coronary Artery Disease (CAD), Heart Failure, Hypertension, Renal Disease Additional Past Medical History / Comment(s): prediabetes, Obesity History of Any Multi-Drug Resistant Organisms: None Reported Past Surgical History: Heart Catheterization With Stent Additional Past Surgical History / Comment(s): back, kidney stones Past Anesthesia/Blood Transfusion Reactions: No Reported Reaction Date of Last Stent Placement:: jul [address] Vazquez Past Psychological History: No Psychological Hx Reported Smoking Status: Never smoker Past Alcohol Use History: None Reported Past Drug Use History: None Reported - Past Family History Father Family Medical History: Cancer, Diabetes Mellitus Mother Family Medical History: COPD Medications and Allergies Home Medications Medication Instructions Recorded Confirmed Type Apixaban [Eliquis] 5 mg PO BID 04/27/23 09/16/23 History Metoprolol Tartrate [Lopressor] 25 mg PO BID 30 Days #60 tab 04/30/23 09/16/23 Rx Ascorbic Acid [Vitamin C] 500 mg PO DAILY 09/16/23 09/16/23 History Atorvastatin [Lipitor] 20 mg PO DAILY 09/16/23 09/16/23 History Clopidogrel [Plavix] 75 mg PO DAILY 09/16/23 09/16/23 History Vitamin D3(Unknown Dose) 1 tab PO DAILY 09/16/23 09/16/23 History Allergies Allergy/AdvReac Type Severity Reaction Status Date / Time phenobarbital AdvReac hyperactivi Verified 09/16/23 16:20 ty Physical Exam Vitals: Vital Signs Temp Pulse Pulse Resp BP BP Pulse Ox 09/17/23 08:09 97.7 F 70 17 129/84 100 09/17/23 03:27 98.1 F 62 16 121/83 98 09/17/23 00:00 73 16 94/56 98 09/16/23 22:00 98.0 F 144 H 18 92/64 98 09/16/23 21:24 138 H 18 125/76 96 09/16/23 20:27 98.4 F 113 H 16 99/70 96 09/16/23 19:00 97.4 F L 125 H 20 102/75 98 09/16/23 18:30 146 H 17 117/70 96 09/16/23 18:00 123 H 16 119/82 94 L 09/16/23 17:30 128 H 15 94/56 09/16/23 17:00 117 H 18 113/79 94 L 09/16/23 16:30 117 H 105/84 09/16/23 16:20 118 H 22 105/84 98 09/16/23 16:10 117 H 22 105/91 100 09/16/23 16:00 121 H 21 103/86 98 09/16/23 15:57 115 H 09/16/23 15:30 231 H 21 127/83 97 09/16/23 15:20 235 H 09/16/23 15:07 97.9 F 180 H 18 83/68 95 Intake and Output 09/16/23 09/17/23 09/17/23 22:59 06:59 14:59 Intake Total 10 Output Total 1000 Balance -990 Intake: IV 10 Invasive Line 1 10 Output: Urine 1000 Other: Voiding Method Toilet Toilet Toilet # Voids 1 Weight 124.284 kg Results CBC & Chem 7: 09/16/23 15:27 09/16/23 15:27 Labs: Abnormal Lab Results - Last 24 Hours (Table) 07/04/24 07/04/24 07/04/24 Range/Units 14:58 15:27 15:27 MCV 100.9 H (80.0-100.0) fL Glucose 103 H (74-99) mg/dL ALT 74 H (4-49) U/L Troponin I (0.000-0.034) ng/mL HDL Cholesterol 38.50 L (40.00-60.00) mg/dL Urine Opiates Screen (NotDetected) U Benzodiazepines Scrn (NotDetected) 09/16/23 09/16/23 09/16/23 Range/Units 19:05 19:58 22:25 MCV (80.0-100.0) fL Glucose (74-99) mg/dL ALT (4-49) U/L Troponin I 0.497 H* 1.200 H* (0.000-0.034) ng/mL HDL Cholesterol (40.00-60.00) mg/dL Urine Opiates Screen Detected H (NotDetected) U Benzodiazepines Scrn Detected H (NotDetected) Thrombosis Risk Factor Assmnt - Choose All That Apply Each Factor Represents 1 point: Age 41-60 years, Obesity (BMI >25) Thrombosis Risk Factor Assessment Total Risk Factor Score: 2 Thrombosis Risk Factor Assessment Level: Low Risk
[2023-09-17] MEDS: VERAPAMIL SYRINGE (5 MG/10 ML) INTRAARTER ONE (13:50)
[2023-09-17] MEDS: HEPARIN SODIUM 1,000 UN/ML (10ML VL) IVP ONE (13:55)
[2023-09-17] MEDS: IOPAMIDOL-370 100ML BTL INJ ONE ×2 (14:11→14:38)
[2023-09-17] MEDS: AMIODARONE 200 MG TAB PO SCH (21:11)
[2023-09-18] MEDS ORDERED: HEPARIN SODIUM,PORCINE (1 ML) 2,500 UNIT in SODIUM CHLORIDE 0.9% 250 ML IRRIGATION PRN (07:00)
[2023-09-18] MEDS ORDERED: HEPARIN SODIUM,PORCINE 10,000 UNIT in SODIUM CHLORIDE 0.9% 1,000 ML IRRIGATION PRN (07:00)
--- NOTE | 2023-09-18 08:59 | CA ---
Transthoracic Echo Report Name: Dayron Hart Age: 53 Gender: M : 1970 Exam Date: 09/17/2023 17:43 Exam Location: [facility] Ht (in): 72 Wt (lb): 274 Ordering Physician: Lavern Shi Attending/Referring Phys: [id number], Jose Guadalupe Channel Director Selam Marie RDCS Procedure CPT: Indications: LVF, looking for new cardiomyopathy Cardiac Hx: Technical Quality: Fair Contrast 1: Total Dose (mL): Contrast 2: Total Dose (mL): MEASUREMENTS (Male / Female) Normal Values 2D ECHO LV Diastolic Diameter PLAX 5.7 cm 4.2 - 5.9 / 3.9 - 5.3 cm LV Systolic Diameter PLAX 4.0 cm IVS Diastolic Thickness 1.6 cm 0.6 - 1.0 / 0.6 - 0.9 cm LVPW Diastolic Thickness 1.3 cm 0.6 - 1.0 / 0.6 - 0.9 cm LV Relative Wall Thickness 0.5 LV Diastolic Volume MOD BP 213.4 cm??? 67 - 155 / 56 - 104 cm??? LV Systolic Volume MOD BP 100.8 cm??? 22 - 58 / 19 - 49 cm??? LV Ejection Fraction MOD BP 52.8 % >= 55 % LV Cardiac Index MOD BP 4004.8 cm???/min???m??? LV Diastolic Volume MOD 4C 221.2 cm??? LV Systolic Volume MOD 4C 100.9 cm??? LV Ejection Fraction MOD 4C 54.4 % LV Cardiac Index MOD 4C 4276.6 cm???/min???m??? LV Diastolic Length 4C 10.1 cm LV Systolic Length 4C 8.2 cm LV Diastolic Volume MOD 2C 197.8 cm??? LV Systolic Volume MOD 2C 101.2 cm??? LV Ejection Fraction MOD 2C 48.8 % LV Cardiac Index MOD 2C 3432.9 cm???/min???m??? LV Diastolic Length 2C 9.6 cm LV Systolic Length 2C 8.3 cm DOPPLER TR Peak Velocity 204.3 cm/s TR Peak Gradient 16.7 mmHg Right Atrial Pressure 10.0 mmHg Pulmonary Artery Systolic Pressu 26.7 mmHg Right Ventricular Systolic Press 26.7 mmHg FINDINGS Left Ventricle Left ventricular ejection fraction is estimated at 50-55 %. Moderately increased septal wall thickness. Severely increased left ventricular diastolic volume. Mildly increased left ventricular systolic volume. Mildly decreased left ventricular ejection fraction. Right Ventricle Right ventricular dilatation. Right ventricular systolic pressure within normal limits. Right Atrium Right atrial dilatation. Left Atrium Left atrial dilatation. Mitral Valve Structurally normal mitral valve. No evidence for mitral valve prolapse. No mitral stenosis. Mild mitral regurgitation. Aortic Valve Aortic valve not well visualized. No aortic stenosis. Trace aortic regurgitation. Tricuspid Valve Structurally normal tricuspid valve. No tricuspid stenosis. Trace tricuspid regurgitation. Pulmonic Valve Pulmonic valve not well visualized. Pericardium No pericardial effusion. Aorta Aortic root and proximal ascending aorta not assessed. CONCLUSIONS LVEF 50-55%, Moderate septal hypertrophy. Mild LV cavity dilatation Moderate LA dilatation. Mild RA dilatation. Mild RV dilatation with normal systolic function Mild MR When compared to prior echo from 04/2023, findings are comparable. Patient is Afib during both studies Previewed by: Dr Bradley Rutledge (Electronically Signed) Final Date: 18 September 2023 08:58
[2023-09-18 09:07] VITALS: TEMP 97.8
[2023-09-18 10:58] VITALS: BP 122/78; PULSE 72; RESP 16
[2023-09-18] MEDS: DAPAGLIFLOZIN PROPANEDIOL 10 MG TABLET PO SCH (11:18)
[2023-09-18 12:10] LABS: ALT 64 U/L (4-49); African American GFR (CKD) >90 (>60 ml/min/1.73 sqM); Albumin 3.4 g/dL (3.5-5.0); Anion Gap 4 mmol/L; Blood Urea Nitrogen 21 mg/dL (9-20); Calcium 8.8 mg/dL (8.4-10.2); Carbon Dioxide 25 mmol/L (22-30); Chloride 109 mmol/L (98-107); Glucose 83 mg/dL (74-99); Non-African American GFR(CKD) >90 (>60 ml/min/1.73 sqM); Sodium 138 mmol/L (137-145); Total Bilirubin 0.7 mg/dL (0.2-1.3)
[2023-09-18 12:17] LABS: AST 51 U/L (17-59); Alkaline Phosphatase 48 U/L (38-126); Potassium 4.5 mmol/L (3.5-5.1)
[2023-09-18 12:19] LABS: Basophils % (A) 1 %; Eosinophils # (A) 0.1 k/uL (0-0.7); Eosinophils % (A) 1 %; HCT 44.2 % (39.0-53.0); HGB 14.1 gm/dL (13.0-17.5); Lymphocytes # (A) 1.2 k/uL (1.0-4.8); Lymphocytes % (A) 21 %; MCV 103.1 fL (80.0-100.0); Macrocytosis Slight; Mean Platelet Volume 9.4; Monocytes # (A) 0.4 k/uL (0-1.0); Monocytes % (A) 7 %; Neutrophils % (A) 69 %; Platelet Count 136 k/uL (150-450); RBC 4.29 m/uL (4.30-5.90); WBC 5.7 k/uL (3.8-10.6)
--- NOTE | 2023-09-18 12:44 | P.DS ---
Providers Date of admission: 09/16/23 17:53 Expected date of discharge: 09/18/23 Attending physician: Ema Sutton Consults: 09/16/23 17:53 Consult Physician Urgent Consulting Provider: Sergio Leon Consult Reason/Comments: Supraventricular tachyarrhythmia Do you want consulting provider notified?: Yes Primary care physician: [facility] Course: Discharge diagnoses; Atrial fibrillation with RVR Elevated troponin Coronary artery disease with previous stenting of the LAD Obstructive sleep apnea Paroxysmal atrial fibrillation on Eliquis Hyperlipidemia Hypertension Hospital course; patient 53-year-old gentleman with past medical history significant for atrial fibrillation, who presented to ER because of palpitations. Patient stated he was all right this evening when while trying to get up he became lightheaded and felt his heart was beating too fast. Patient became diaphoretic at that time. There was no complaint of chest pain. Denied any nausea or vomiting. There was no complaint of orthopnea or PND. There was no complaint of swelling of feet. Patient stated that he felt similar to that during the last time when he had an episode of A-fib with RVR. At the ayde that e patient was seen in the hospital and had electrical cardioversion done. Because of the symptoms, patient came to the ER. Initial lab work done in the ER showed WBC 10.4, hemoglobin 15.4, platelet count 213, INR 0.9, sodium 130, potassium 4.5, BUN 18, creatinine 0.90, glucose 103, magnesium 1.9, troponin 0.012 Urine drug screen positive for opioids, benzodiazepines EKG done in the ER showed heart rate of 121, no P waves seen, irregular in rhythm, ST segment depression seen in V2 for V5, no ST elevation seen, no T-wave inversions seen. Chest x-ray done in the ER cardiomegaly, no acute cardiopulmonary process Patient admitted to internal medicine service 09/17. Patient was loaded with cardiology, patient underwent cardiac cath, no intervention done. Cardiology recommended keeping patient on Eliquis and starting on amiodarone 400 mg twice a day for 1 week followed by 200 mg twice a day for 1 week followed by 20 mg daily. Outpatient follow-up with cardiology PHYSICAL EXAMINATION: GENERAL: The patient is alert and oriented x3, not in any acute distress. Well developed, well nourished. HEENT: Pupils are round and equally reacting to light. EOMI. No scleral icterus. No conjunctival pallor. Normocephalic, atraumatic. No pharyngeal erythema. No thyromegaly. CARDIOVASCULAR: S1 and S2 present. No murmurs, rubs, or gallops. PULMONARY: Chest is clear to auscultation, no wheezing or crackles. ABDOMEN: Soft, nontender, nondistended, normoactive bowel sounds. No palpable organomegaly. MUSCULOSKELETAL: No joint swelling or deformity. EXTREMITIES: No cyanosis, clubbing, or pedal edema. NEUROLOGICAL: Gross neurological examination did not reveal any focal deficits. SKIN: No rashes. Dictation was produced using [employer] dictation software. please excuse any grammatical, word or spelling errors. Patient Condition at Discharge: Good Plan - Discharge Summary Discharge Rx Participant: No New Discharge Prescriptions: New Amiodarone [Cordarone] 400 mg PO BID #60 tab Dapagliflozin Propanediol [Farxiga] 10 mg PO DAILY 30 Days #30 tab Continue Apixaban [Eliquis] 5 mg PO BID Metoprolol Tartrate [Lopressor] 25 mg PO BID 30 Days #60 tab Vitamin D3(Unknown Dose) 1 tab PO DAILY Ascorbic Acid [Vitamin C] 500 mg PO DAILY Clopidogrel [Plavix] 75 mg PO DAILY Atorvastatin [Lipitor] 20 mg PO DAILY Discharge Medication List Apixaban [Eliquis] 5 mg PO BID 04/27/23 [History] Metoprolol Tartrate [Lopressor] 25 mg PO BID 30 Days #60 tab 04/30/23 [Rx] Ascorbic Acid [Vitamin C] 500 mg PO DAILY 09/16/23 [History] Atorvastatin [Lipitor] 20 mg PO DAILY 09/16/23 [History] Clopidogrel [Plavix] 75 mg PO DAILY 09/16/23 [History] Vitamin D3(Unknown Dose) 1 tab PO DAILY 09/16/23 [History] Amiodarone [Cordarone] 400 mg PO BID #60 tab 09/18/23 [Rx] Dapagliflozin Propanediol [Farxiga] 10 mg PO DAILY 30 Days #30 tab 09/18/23 [Rx] Follow up Appointment(s)/Referral(s): Rainer Vazquez MD [STAFF PHYSICIAN] - 1 Week Hayden Davis DO [Primary Care Provider] - 1-2 days Activity/Diet/Wound Care/Special Instructions: Take 400 mg twice a day for 1 week followed by 200 mg twice a day for 1 week followed by 200 mg daily Discharge Disposition: HOME SELF-CARE
--- NOTE | 2023-09-18 14:34 | P.CARDCATH ---
Date of Procedure: 09/17/23 Description of Procedure: DIAGNOSTIC CORONARY ANGIOGRAPHY and LEFT HEART CATH REPORT PROCEDURES PERFORMED: Left heart catheterization Selective coronary angiography Moderate conscious sedation 54 mins [Ultrasound assisted] Right radial access INDICATION: NSTEMI 53-year-old male with past medical history of CAD s/p PCI to LAD, presented to the hospital because of substernal chest pressure, palpitation and diaphoresis symptoms. He had evidence of uptrending troponin levels. He also had evidence of A-fib RVR on admission which was controlled with Cardizem drip and amiodarone. Because of his uptrending troponin and concerning symptoms along with prior history of CAD, he was scheduled for heart catheterization procedure CONSENT: I have explained the procedural steps of above-mentioned procedures in layman's terms to the patient. I discussed the risks (including but not limited to stroke, emergent vascular or cardiac surgery or ), benefits and alternative therapies for the above-mentioned procedure. I discussed the risks of sedation/analgesia and blood product administration (if indicated). The patient has indicated understanding and acceptance of these risks. Conscious Sedation: Patient's ECG, heart rate, blood pressure, pulse oximetry were monitored throughout the duration of procedure under my direct supervision. [2] mg Versed and [50] mcg Fentanyl were used for induction of moderate conscious sedation. Total duration of moderate concious sedation 57 minutes. PROCEDURE: After explaining the risks, benefits and alternatives of the above mentioned procedures in detail to the patient, informed consent was obtained. Patient was taken to the catheterization lab, prepped and draped in usual sterile fashion using universal precuations. Ultrasound was used to identify the radial artery. 1% lidocaine was infiltrated over the right radial artery. A 6-Uzbek sheath was placed and secured in the right radial artery using modified Seldinger technique. The sheath was flushed and 5 mg verapamil was administered intra-arterially. J tipped wire was advanced under fluoroscopic guidance. The wire could not be advanced beyond the elbow point. The wire was removed and with the help of JR4 catheter, the wire was maneuvered into the brachial artery and was advanced to the aortic root. The JR4 catheter was advanced to the aortic root. There was significant resistance noticed at the junction point of right subclavian artery to the aortic arch. Once the wire tip reached aortic root 6000 units of IV heparin was given. Over the wire JR4 diagnostic catheter was advanced. The wire in place the catheter was manipulated to cross the aortic valve and entered into LV under fluoroscopy guidance. The wire was removed and the catheter was flushed. LV pressures were obtained and pullback was performed under fluoroscopy. Catheter was manipulated could not selectively engage the right coronary ostium. The catheter spontaneously engage the left coronary ostium selectively. The left coronary angiogram was performed in different angiographic projections. The catheter was disengaged and was attempted to engage the right coronary ostium. Due to inability to torque the catheter, the JR4 diagnostic catheter could not engage right coronary ostium selectively. This catheter was exchanged for a JR 5 diagnostic catheter. This catheter was able to nonselectively engage the right coronary ostium but was short and could not reach the ostium. This was exchanged for a Surendra catheter. The Surendra catheter could not reach the right coronary ostium. This catheter was exchanged for a AR-2 catheter. The AR-2 catheter could not go beyond from right subclavian to aortic arch The JR4 diagnostic catheter was exchanged for a JL 3.5 diagnostic catheter over the J-wire. The wire was removed, catheter was flushed and manipulated under fluoroscopy to selectively engaged the left coronary ostium. Left coronary angioplasty was performed in different angiographic projections. Catheter was removed over the wire. Radial sheath was flushed. The right radial sheath was removed and a TR band was placed with excellent patent hemostasis was achieved. The patient tolerated the procedure well. Patient was transported back to the post catheterization holding area in stable condition. Angiographic images were reviewed in detail. Technical details Estimated blood loss less than 20 mL Total radiation 751 mGy Total fluoroscopy time 22 minutes Total contrast used 80 mL Isovue Catheter used: 5 Uzbek JR4, 5 Uzbek JL 3.5, 5 Uzbek JR 5, Surendra, 6 Uzbek AR- 2 HEMODYNAMICS: Aortic Pressure: 123/94 mmHg. LV pressure: 125/0 mmHg. LVEDP 5 mmHg. There was no significant gradient across the aortic valve. SELECTIVE CORONARY ARTERIOGRAPHY: LEFT MAIN: The left main is short and very large caliber vessel. It trifurcates into the LAD, Ramus and circumflex. Left main appears angiographically normal. LEFT ANTERIOR DESCENDING CORONARY ARTERY: LAD is a large caliber vessel which wraps around to the apex. Proximal LAD appears angiographically normal It has a prior 6 mm stent which is patent. Mid LAD appears angiographically normal. Distal LAD appears angiographically normal. It gives rise to 2 diagonal branches which appears angiographically normal. Ramus: Large caliber appears angiographically normal. LEFT CIRCUMFLEX CORONARY ARTERY: It is nondominant vessel. Left circumflex is a moderate caliber vessel. It appears angiographically normal. RIGHT CORONARY ARTERY: RCA could not be selectively engaged. On nonselective imaging, it appeared to be a dominant vessel. The right coronary artery is a large caliber vessel which gives PDA and PLV branch. It appears angiographically normal. IMPRESSION: Large caliber ectatic coronary arteries Patent LAD stent Normal LVEDP PLAN: 125 cc fluids for 4 hours Continue management for atrial fibrillation. Consider CTA coronary artery or nuclear Lexiscan if concerns of myocardial ischemia are present Manage atrial fibrillation Obtain echocardiogram to see if patient developed any tachycardia induced c ardiomyopathy Performing Physician Bradley Rutledge MD, FACC, RPVI Thank you for allowing [facility] to participate in this patient's care. Feel free to reach out in case of any followup questions.
--- NOTE | 2023-09-18 14:40 | P.PN ---
Subjective Progress Note Date: 09/18/23 This is a 53-year-old male patient of Dr. DAVIDE Vazquez with past medical history of coronary disease with stenting of the LAD 11/01/2022 with there was plaque rupture good result, morbid obesity, mild obstructive sleep apnea not requiring CPAP, paroxysmal atrial fibrillation on Eliquis, hyperlipidemia, hypertension, kidney stones. We have been asked to evaluate the patient for supraventricular tachycardia. Patient presented to the ER with heart rate [id number], initial blood pressure 83/68. He states that he stood up and developed rapid heart rate. He felt a flushing in his face yesterday but no chest pain. Blood pressure now 129/84, heart rate 70, pulse ox 100% on room air. Patient is status post 500 cc IV fluid bolus, adenosine 12 mg IV push x 1, amiodarone drip. Patient was last seen in the office on 06/23/2023 at which time he was in a sinus rhythm. After adenosine, heart rate slowed and he was in atrial fibrillation. Patient was started on amiodarone drip and remains on that now. Discussed option of [facility] due to elevated troponins and he is agreeable to move forward. EKG #1 atrial fibrillation, #2 atrial fibrillation at 227 bpm, #3 atrial fibrillation at 111 bpm Chest x-ray: Cardiomegaly. No acute process Laboratory studies: WBC 7.4, hemoglobin 15.4. Sodium 138, potassium 4.5, cre atinine 0.91. Troponins 0.012, 0.497, 1.2. TSH 3.42. Urine drug screen positive for opiates and benzodiazepines. Home cardiac medications: Eliquis 5 mg twice daily, atorvastatin 20 mg daily, Plavix 75 mg daily, metoprolol tartrate 25 mg twice daily. Cardiac catheterization 07/13/2022 revealed mildly elevated filling pressures, no gradient across the valve, no disease in RCA, LM or ramus, distal RCA with some dilation suggestive of inflammatory disease. LAD with 80% plaque rupture status post PCI of the LAD. Echocardiogram performed 04/28/2023 revealed EF of 45 to 50%, septal bounce noted, RVSP 38, moderate MR. No pericardial effusion. Exercise tolerance test performed 08/25/2022 walked for 2 and half minutes with heart rate 132, rare isolated PVCs, no angina, poor conditioning noted. Inc onclusive stress test because of an adequate chronotropic response. 04/27/2023 synchronized cardioversion in the emergency center at [facility] for atrial fibrillation successfully converted to sinus rhythm Progress note September 18, 2023 Patient had a heart catheterization yesterday. No postop complications. Right radial pulse appears intact. Still continues to be in atrial fibrillation but is rate controlled at 70s. Physical examination: Gen: This is a morbidly obese 53-year-old male. He appears to be in no acute distress VS: reviewed HEENT: Head is atraumatic, normocephalic. Pupils equal, round. Sclerae is anicteric. NECK: Supple. No JVD. LUNGS: Clear to auscultation. No wheezes or rhonchi. No intercostal retractions. HEART: Irregular rate and rhythm. No murmur. ABDOMEN: Soft No tenderness. EXTREMITIES: No pedal edema. No calf tenderness. NEUROLOGICAL: Patient is awake, alert and oriented x3. Assessment: Paroxysmal A-fib presenting with RVR , now rate controlled. Elevated troponin, NSTEMI type II, demand supply mismatch Coronary artery disease with previous stenting of the LAD Hyperlipidemia Hypertension Kidney stones Morbid obesity with previous BMI of 45 s/p loss of 180 pounds Plan: Due to significantly elevated troponin and prior history of CAD, heart cat heterization was done. heart catheterization showed patent stent in LAD. His arteries are ectatic and large. I will start him on amiodarone 400 mg twice daily with amiodarone taper. Continue metoprolol 25 mg twice daily which is his home regimen. Advised to take extra metoprolol if feel palpitation. Recommended to come to ER if have diaphoresis or dizziness lightheadedness Patient will need outpatient follow-up with Dr. Vazquez in next 1 week. Patient would benefit from A-fib ablation procedure Start Jardiance 10 mg daily for mildly dilated LV cavity and dilated left atrium. Okay to be discharged from cardiac standpoint Objective - Vital Signs Vital signs: Vital Signs Temp 97.8 F 09/18/23 08:00 Pulse 72 09/18/23 10:56 Resp 16 09/18/23 10:56 BP 122/78 09/18/23 10:56 Pulse Ox 98 09/18/23 10:56 FiO2 Intake & Output 09/17/23 09/18/23 09/18/23 18:59 06:59 18:59 Intake Total 218 118 Balance 218 118 Weight 124.6 kg Intake: IV 100 Oral 118 118 Other: Voiding Method Toilet Toilet Toilet # Voids 1 - Labs CBC & Chem 7: 09/18/23 11:26 09/18/23 11:26 Labs: Abnormal Lab Results - Last 24 Hours (Table) 09/18/23 09/18/23 Range/Units 11:26 11:26 RBC 4.29 L (4.30-5.90) m/uL MCV 103.1 H (80.0-100.0) fL Plt Count 136 L (150-450) k/uL Chloride 109 H (98-107) mmol/L BUN 21 H (9-20) mg/dL ALT 64 H (4-49) U/L Total Protein 6.0 L (6.3-8.2) g/dL Albumin 3.4 L (3.5-5.0) g/dL
== END 2023-09-18 13:34 | disposition home or self-care (01) | DRG 282 ==
LOC: EC 15:06 → 3SCARD 17:53
PROVIDERS: ADMIT Internal Medicine; ATTEND Internal Medicine
PROC: 3E033RZ Introduction of Antiarrhythmic into Peripheral Vein, Percutaneous Approach (ICD-10-PCS; 2023-09-16)
PROC: 4A023N7 Measurement of Cardiac Sampling and Pressure, Left Heart, Percutaneous Approach (ICD-10-PCS; principal; 2023-09-17 19:30)
PROC: B2111ZZ Fluoroscopy of Multiple Coronary Arteries using Low Osmolar Contrast (ICD-10-PCS; principal; 2023-09-17 19:30)
DX: I48.0 Paroxysmal atrial fibrillation (principal); I21.A1 Myocardial infarction type 2; I11.0 Hypertensive heart disease with heart failure; I50.9 Heart failure, unspecified; I25.10 Atherosclerotic heart disease of native coronary artery without angina pectoris; E66.01 Morbid (severe) obesity due to excess calories; Z68.37 Body mass index [BMI] 37.0-37.9, adult; Z28.310 Unvaccinated for COVID-19; R73.03 Prediabetes; I49.3 Ventricular premature depolarization; F41.9 Anxiety disorder, unspecified; G47.33 Obstructive sleep apnea (adult) (pediatric); E78.5 Hyperlipidemia, unspecified; N20.0 Calculus of kidney; Z79.01 Long term (current) use of anticoagulants; Z79.02 Long term (current) use of antithrombotics/antiplatelets; Z79.899 Other long term (current) drug therapy; Z95.5 Presence of coronary angioplasty implant and graft; Z88.8 Allergy status to other drugs, medicaments and biological substances
CPT/HCPCS: 36415; 71045; 80053; 80061; 80306; 83735; 84443; 84484; 85025; 85610; 85730; 93005; 93308; 93458; 96365; 96366; 96375; 99291

== ENCOUNTER → 2023-11-29 | Outpatient (CLI) | payer OTHER ==
[2023-11-29 22:00] LABS: HCT 47.1 % (39.6-50.0); HGB 15.2 g/dL (13.0-17.0); MCH 32.4 pg (27.0-32.0); MCHC 32.3 g/dL (32.0-37.0); MCV 100.4 FL (80.0-97.0); Mean Platelet Volume 10.8 FL (9.5-12.2); NRBC Per 100 WBC 0 X 10*3/uL (0.00-0.01); Platelet Count 213 X 10*3/uL (140-440); RBC 4.69 X 10*6/uL (4.40-5.60); RDW 13.6 % (11.5-14.5); WBC 6.46 X 10*3/uL (4.50-10.00)
[2023-11-29 22:10] LABS: Blood Urea Nitrogen 47.7 mg/dL (9.0-27.0); Carbon Dioxide 22.9 mmol/L (21.6-31.8); Chloride 104 mmol/L (96-109); Potassium 5.2 mmol/L (3.5-5.5); Sodium 138 mmol/L (135-145)
== END | disposition home or self-care (01) ==
LOC: LABPAT 15:27
PROVIDERS: ATTEND Internal Medicine Clinical Cardiac Electrophysiology
DX: Z01.818 Encounter for other preprocedural examination
CPT/HCPCS: 36415; 80051; 82565; 84520; 85027

== ENCOUNTER 2023-12-07 09:01 | Day surgery (SDC) | payer OTHER ==
[2023-12-01 14:50] VITALS: BMI 39.3
[2023-12-07] MEDS: SODIUM CHLORIDE 0.9% 1,000 ML IV SCH (09:07)
[2023-12-07] MEDS: SODIUM CHLORIDE 0.9% 1,000 ML IV ONE (09:08)
[2023-12-07 09:45] LABS: Glucose,Whole Blood 105 mg/dL (70-110)
[2023-12-07 10:12] LABS: ALT 43 U/L (4-49); AST 27 U/L (17-59); African American GFR (CKD) >90 (>60 ml/min/1.73 sqM); Albumin 3.9 g/dL (3.5-5.0); Alkaline Phosphatase 70 U/L (38-126); Blood Urea Nitrogen 27 mg/dL (9-20); Calcium 9.3 mg/dL (8.4-10.2); Carbon Dioxide 25 mmol/L (22-30); Chloride 98 mmol/L (98-107); Glucose 91 mg/dL (74-99); Non-African American GFR(CKD) >90 (>60 ml/min/1.73 sqM); Potassium 4.3 mmol/L (3.5-5.1); Total Bilirubin 0.9 mg/dL (0.2-1.3); Total Protein 6.5 g/dL (6.3-8.2)
[2023-12-07 10:54] LABS: Anion Gap 16 mmol/L; Sodium 139 mmol/L (137-145)
[2023-12-07] MEDS ORDERED: HYDROmorphone (PF) 1 MG/ML ONE (11:15)
[2023-12-07] MEDS ORDERED: LIDOCAINE 1% INJ 10MG/ML (20 ML MDV) ONE (11:15)
[2023-12-07] MEDS ORDERED: ePHEDrine 50 MG/ML 1 ML VIAL ONE (11:15)
[2023-12-07] MEDS ORDERED: WATER FOR INJECTION, STERILE 10 ML VIAL IV ONE (11:15)
[2023-12-07] MEDS ORDERED: PROPOFOL 10 MG/ML 20 ML VIAL IV ONE (11:15)
[2023-12-07] MEDS ORDERED: SUCCINYLCHOLINE CHLORIDE 200 MG/10 ML VIAL IV ONE (11:15)
[2023-12-07] MEDS ORDERED: MIDAZOLAM 2 MG/2 ML VIAL ONE (11:15)
[2023-12-07] MEDS ORDERED: KETAMINE HCL IN 0.9 % NACL 50 MG/5 ML SYRINGE ONE (11:15)
[2023-12-07] MEDS ORDERED: PHENYLEPHRINE 10 MG/ML VIAL ONE (11:15)
[2023-12-07] MEDS ORDERED: FUROSEMIDE 10 MG/ML 2 ML VIAL ONE (11:15)
[2023-12-07] MEDS ORDERED: PHENYLEPHRINE-0.9% NACL SYG 1,000 MCG/10 ML SYRINGE ONE (11:15)
[2023-12-07] MEDS ORDERED: fentaNYL (PF) 50 MCG/ML 2 ML AMP ONE (11:15)
[2023-12-07] MEDS ORDERED: HEPARIN SODIUM,PORCINE 10,000 UNIT/ML 1 ML VIAL ONE (11:15)
[2023-12-07] MEDS: HEPARIN SODIUM,PORCINE (1 ML) 2,500 UNIT in SODIUM CHLORIDE 0.9% 250 ML IRRIGATION ONE (11:33)
[2023-12-07] MEDS: HEPARIN SODIUM,PORCINE 10,000 UNIT in SODIUM CHLORIDE 0.9% 1,000 ML IRRIGATION ONE (11:33)
[2023-12-07] MEDS: HEPARIN SOD,PORK IN 0.45% NACL 25,000 UNIT in 0.45% NACL 1 250ML.BAG IV ONE (11:33)
[2023-12-07] MEDS: LIDOCAINE 2% URO-JET JELLY 5 ML KIT URETHRAL ONE (11:44)
[2023-12-07] MEDS: LIDOCAINE 1% INJ 10MG/ML (20 ML MDV) SQ ONE (12:05)
[2023-12-07] MEDS: HEPARIN SODIUM (1,000 UNIT/ML) 1,000 UNIT in SODIUM CHLORIDE 0.9% 1,000 ML IRRIGATION ONE ×2 (13:30→17:24)
[2023-12-07] MEDS: LACTATED RINGERS 1,000 ML IV ONE (15:22)
[2023-12-07] MEDS: IOPAMIDOL-370 100ML BTL INJ ONE (15:49)
--- NOTE | 2023-12-07 18:29 | P.HPCAR ---
History of Present Illness This is Dr. Mckinney dictating an H/P on this patient The patient was interviewed and examined IMPRESSION / ASSESSMENT: Persistent symptomatic atrial fibrillation despite rate control Typical atrial flutter with RVR as well as one-to-one conduction of atrial flutter History of CAD coronary stenting to the LAD in the past. Recent coronary angiography revealed a patent stent with normal LVEDP and large caliber ectatic coronary arteries Morbid obesity, almost 100 pound weight loss PLAN: Atrial flutter ablation Following that A-fib ablation Continue anticoagulation Has been discontinued HPI Patient came in for evaluation management of atrial fibrillation He has a history of atrial flutter with one-to-one conduction. He is also had atrial fibrillation and remains in A-fib, symptomatic His cardiac enzymes are abnormal when he came in atrial flutter with RVR but he has no progression of coronary artery disease in the LAD and the stent is patent He denies any chest discomfort dizziness or lightheadedness. He feels the palpitations and shortness of breath on exertion Denies any fever chills cough expectoration ROS: No fever chills or rigors, no cough, phlegm or expectoration, no nausea, vomiting or diarrhea, no hematuria, dysuria, no musculoskeletal complaints, no strokes or seizures, no skin lesions. EXAMINATION: 132/90 mmHg, pulse rate 96 beats a minute at rest afebrile Breath sounds are reduced bilaterally but there are no rhonchi no crackles Heart sounds are irregular no murmurs Abdomen soft No lower extremity edema No JVD REVIEW OF LABS, ECG & MEDICAL DATA Sodium 139, potassium 4.3 BUN 27 creatinine 0.9 TSH normal 2.0 Physical Exam Vitals: Vital Signs Temp Pulse Resp BP BP Pulse Ox 12/07/23 09:26 97.3 F L 96 16 145/103 132/90 96 Intake and Output 12/07/23 12/07/23 12/07/23 06:59 14:59 22:59 Intake Total 1775 137 Output Total 3000 Balance 177 -4033 Intake: IV 1775 137 Output: Urine 3000 Other: Weight 134.6 kg Past Medical History Past Medical History: Atrial Fibrillation, Coronary Artery Disease (CAD), Heart Failure, Hypertension, Renal Disease Additional Past Medical History / Comment(s): SEE DR. MCKINNEY'S H&P, prediabetes History of Any Multi-Drug Resistant Organisms: None Reported Past Surgical History: Back Surgery, Heart Catheterization With Stent Additional Past Surgical History / Comment(s): kidney stone removal Past Anesthesia/Blood Transfusion Reactions: No Reported Reaction Date of Last Stent Placement:: 07/13/22 Past Psychological History: No Psychological Hx Reported Smoking Status: Never smoker Past Alcohol Use History: None Reported Past Drug Use History: None Reported - Past Family History Father Family Medical History: Cancer, Diabetes Mellitus Mother Family Medical History: COPD Physical Examination Vital Signs Temp Pulse Resp BP BP Pulse Ox 12/07/23 09:26 97.3 F L 96 16 145/103 132/90 96 Intake and Output 12/07/23 12/07/23 12/07/23 06:59 14:59 22:59 Intake Total 1775 137 Output Total 3000 Balance 1775 -1883 Intake: IV 1775 137 Output: Urine 3000 Other: Weight 134.6 kg Results 12/07/23 09:29 Cardiac Enzymes 12/07/23 Range/Units 09:29 AST 27 (17-59) U/L Comprehensive Metabolic Panel 12/07/23 Range/Units 09:29 Sodium 139 (137-145) mmol/L Potassium 4.3 (3.5-5.1) mmol/L Chloride 98 (98-107) mmol/L Carbon Dioxide 25 (22-30) mmol/L BUN 27 H (9-20) mg/dL Creatinine 0.89 (0.66-1.25) mg/dL Glucose 91 (74-99) mg/dL Calcium 9.3 (8.4-10.2) mg/dL AST 27 (17-59) U/L ALT 43 (4-49) U/L Alkaline Phosphatase 70 (38-126) U/L Total Protein 6.5 (6.3-8.2) g/dL Albumin 3.9 (3.5-5.0) g/dL Current Medications Generic Name Dose Route Start Last Admin Trade Name Freq PRN Reason Stop Dose Admin Sodium Chloride 1,000 mls @ 20 mls/hr 12/07/23 05:07 12/07/23 09:07 Saline 0.9% IV 01/06/24 05:06 20 mls/hr .Q24H RILEY Administration Intake and Output 12/07/23 12/07/23 12/07/23 06:59 14:59 22:59 Intake Total 1775 137 Output Total 3000 Balance 1775 -1446 Intake: IV 1775 137 Output: Urine 3000 Other: Weight 134.6 kg Patient Weight 12/08/23 06:59 Weight 134.6 kg 12/07/23 09:29
--- NOTE | 2023-12-07 18:41 | P.EPPROC ---
- EP Procedure Note Electrophysiology Procedure Note: PROCEDURE A. 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 fib ablation/pulmonary vein isolation of all veins using cryo- ablation as well as RF ablation to achieve complete antral level isolation Complete entrance block in all 4 veins confirmed No evidence for phrenic nerve injury Left atrial septal ablation Typical atrial flutter ablation Esophageal deflection YES Electrical cardioversion with a synchronized shock across the chest YES PROCEDURE DETAILS Written informed consent prior to procedure. Patient brought to the EP lab. General anesthesia given. Heparin administered. ACT maintained above 300 seconds Both groins prepped and draped per protocol and venous sheaths placed. Esophagus intubated, circa catheter for temperature monitoring an endoscope for possible esophageal deflection. First intracardiac echo was performed. Left atrial appendage was evaluated for thrombus. No thrombus was noted Cavotricuspid isthmus was mapped after electrical cardioversion with a 200 J biphasic shock to sinus rhythm A complete RF line of block was made and bidirectional block was proven Phrenic nerve monitoring performed. Esophageal temperature monitoring performed. Esophageal deflection performed if circa catheter overlapping with the balloon or circa temperature less than 27.5C Intracardiac echocardiography performed. Pericardium evaluated. Left atrial appendage evaluated. Left atrium evaluated along with pulmonary veins Transseptal catheterization performed under fluoroscopic guidance and intracardiac echo guidance Cryoablation sheath exchanged, balloon catheter along with achieve catheter placed in the left atrium. Pulmonary veins isolated in the following sequence: Left superior pulmonary vein followed by left inferior pulmonary vein, followed by right inferior pulmonary vein and lastly right superior pulmonary vein. Phrenic nerve stimulation along with capture thresholds within the SVC and right superior pulmonary vein to identify the phrenic nerve proximity to the cryo- balloon. Pulmonary veins isolated and confirmed with entrance and exit block. Phrenic nerve integrity confirmed at the end of the procedure Ablation of the left atrial roof performed with sequential lesions from the left superior to the right superior pulmonary veins. Ablation of the electrograms confirmed Ablation of the left atrial septum performed with cannulation of the superior branch of the right inferior or the inferior branch of the right superior vein to achieve ablation of the posterior septum of the left atrium. Ablation of electrograms confirmed Electrical cardioversion performed prior to starting typical atrial flutter ablation to allow for mapping and testing of the RF line Diagnostic catheters for the high right atrium, His bundle, coronary sinus placed. LA and RA pressures recorded RA pressure: 18/4/10 LA pressure: 21/3/13 Diagnostic EP study with coronary sinus pacing and recording Baseline measurements: Following electrical cardioversion sinus cycle length 138 0 ms, MT interval 191 ms, QRS 106 ms and QT 442 ms Venous sheaths were removed and hemostasis assured with a closure device. Patient extubated and transferred to recovery. Increase procedural time The patient is morbidly obese and ultrasound access of the femoral veins had to be achieved successfully. Following the procedure Perclose closure of all accesses was performed and for the 16 [place] sheath Perclose plus Vascade combination was used for complete closure During ablation multiple attempts had to be made to move the esophagus a safe di stance of the from the pulmonary vein draining cryoablation, to avoid excessive thermal cooling of the esophagus This took extra time and effort to keep the esophagus a safe distance away from the cryoablation balloon. Patient underwent cryoablation of the pulmonary veins. He had large pulmonary veins and therefore each tributary of the pulmonary vein was separately isolated to create antral level lesions. However we were unsuccessful in isolating the left superior pulmonary vein on account of its size and the fact that the patient had a common left-sided vein Therefore voltage mapping/3D mapping was performed. This revealed an isolated left pulmonary vein, ostial level isolation of the other veins and no isolation or ablation in the posterior septum Therefore using RF ablation, [place] antral isolation was performed around the left common vein encircling the vein completely and then confirming entrance and exit block Ablation of the posterior septum and the posterior debbie in between the right- sided veins was performed with esophageal deflection and posterior septal ablation Left atrial septal ablation was confirmed and complete isolation of the segment was confirmed It was a very long procedure lasting over 6 hours. It took twice the amount of time that it usually takes to achieve antral level isolation and left atrial septal ablation on account of the size of the antra of the pulmonary veins PROCEDURES PERFORMED Diagnostic EP study CS pacing and recording Left and right transseptal catheterization Catheter the mapping of the tachycardia Intracardiac echocardiography Pulmonary vein isolation with transseptal and comprehensive EPS, [id number] Extended procedure duration Linear ablation, left atrium, +[id number] Electrical cardioversion with a synchronized shock across the chest [id number]
[2023-12-07] MEDS ORDERED: ACETAMINOPHEN TAB 325 MG TAB PO PRN (18:42)
[2023-12-07 19:44] LABS: Glucose,Whole Blood 121 mg/dL (70-110)
[2023-12-07] MEDS: ATORVASTATIN 20 MG TAB PO SCH (20:41)
[2023-12-07] MEDS: METOPROLOL TARTRATE 25 MG TAB PO SCH (20:42)
[2023-12-07] MEDS: APIXABAN 5 MG TAB PO SCH (20:42)
[2023-12-07] MEDS: ACETAMINOPHEN IV (For NPO) 1,000 MG in EMPTY BAG 1 BAG IVPB ONE (21:11)
[2023-12-08 08:16] VITALS: BP 99/62; PULSE 69; RESP 17; TEMP 97.7
[2023-12-08] MEDS: CLOPIDOGREL 75 MG TAB PO SCH (08:19)
== END 2023-12-08 14:10 | disposition home or self-care (01) ==
LOC: CATHEP 09:01 → 6NMEDSUR 18:06 → CATHEP 12-08 14:10
PROVIDERS: ATTEND Internal Medicine Clinical Cardiac Electrophysiology
DX: I47.19 Other supraventricular tachycardia (principal); E66.01 Morbid (severe) obesity due to excess calories; I48.3 Typical atrial flutter; E11.9 Type 2 diabetes mellitus without complications; I25.10 Atherosclerotic heart disease of native coronary artery without angina pectoris; I11.0 Hypertensive heart disease with heart failure; I50.9 Heart failure, unspecified; E78.5 Hyperlipidemia, unspecified; Z79.01 Long term (current) use of anticoagulants
CPT/HCPCS: 80053; 84443; 86850; 86900; 86901; 92960; 93655; 93656; 93657